=== PATIENT | female | born 1955 | race Caucasian/White ===

== ENCOUNTER → 2016-07-28 | Outpatient (CLI) | payer OTHER, SELFPAY ==
[~2016-07-28] MED LIST: *MAMMOGRAM; /THIA10TA; ALBUTEROL INHALATION; ALLEGRA180 PO; AMBIEN5 PO; ATARAX PO; ATIV0.5T; ATIV1TAB2; ATIVAN PO; BACT800T; CAHNTIXC PO; CAL/VITD PO; CHAN0.5P PO; CLON0.5T; CORGARD PO; DOXYCYC100 PO; FLOXINOTIC OTIC; FOLI1TAB; FOLIC1 PO; GASTROGRAFIN SOLUTION 30ML (Q9963) As Ordered ONE; ISOVUE-370 76% 100ML VIAL (Q9967) As Ordered ONE; KLON0.5T; KLONOPIN05 PO; LACT10SO PO; LEXAPRO20 PO; MOTRIN400 PO; MOTRIN600 PO; MULTIVIT PO; NEURONTIN6 PO; NICO14DI3; NICO21DI4; OXAZ15CA2; PAXIL10 PO; PAXIL20 PO; PEPCID20 PO; PRILOSECOT PO; RANI75TA2; SERT100T; SPIRIVA; SPIRONO PO; SYMBI INHALATION; THERGRAN; TRAZ0DON5 PO; TRAZ50TA; TRAZODON10 PO; ZANTAC150 PO; ZEBE5TAB; ZEBETA5 PO; ZOLO100T; ZOLOFT100 PO; ZOLOFT25 PO; ZOLOFT50 PO; [UNRECOGNIZED DRUG - CODE] PO; [UNRECOGNIZED DRUG - OTHER]; [UNRECOGNIZED DRUG - OTHER]
--- NOTE | 2016-07-28 13:17 | REP ---
CT of the abdomen and pelvis without and with IV contrast: With oral contrast. History: Weight loss and diarrhea. Comparison study April 10, 2014. CT contrast dose: 100 ml of Isovue [address] findings: Preliminary digital cytotechnologist/histotechnologist radiograph shows an unremarkable bowel gas pattern. The lung bases are clear. The liver and the spleen are normal in size and homogeneous in texture on pre- and postcontrast imaging. There is a small sliding-type hiatal hernia noted. No adrenal lesion is seen on either side. The pancreas contains three or four calcifications in the head of the pancreas. These appear to be anterior to the distal common bile duct and may reflect changes from previous pancreatitis. The CBD measures 6 mm in greatest diameter which is in the normal range. No intrahepatic biliary ductal dilation is observed. No retroperitoneal mass or adenopathy is seen. The kidneys enhance symmetrically. They are morphologically intact. No intrarenal nephrolithiasis is seen. There is some vascular calcification. No retroperitoneal mass or adenopathy is seen. There is minimal ectasia of the infrarenal abdominal aorta, 2.3 cm in greatest diameter. 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 Flow is reconstituted in the external and internal iliac artery via collaterals on the left side. The right common and external iliac artery are patent. Enhancement and patency are observed in the celiac, SMA, and inferior mesenteric artery. A normal appendix is again observed. There is left colonic diverticulosis without CT evidence of diverticulitis. Urinary bladder is intact. No abdominal wall defect is seen. Impression: 1. There are several calcifications in the pancreatic head consistent with previous episodes of pancreatitis. These are more prominent than on the April 10, 2014 prior study. 2. Small sliding-type hiatal hernia unchanged. 3. 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 4. Mild left colonic diverticulosis without evidence of diverticulitis. Signed by Joseph Lowe MD 07/28/2016 02:35 P
== END ==
LOC: M RAD 09:09
PROVIDERS: ATTEND Nurse Practitioner Family
DX: R63.4 Abnormal weight loss (principal); R19.7 Diarrhea, unspecified

== ENCOUNTER → 2016-08-04 | Outpatient (REF) | payer OTHER ==
[~2016-08-04] MED LIST changes: -GASTROGRAFIN SOLUTION 30ML (Q9963) As Ordered ONE; -ISOVUE-370 76% 100ML VIAL (Q9967) As Ordered ONE
[2016-08-04 10:52] LABS: MEAN CORPUSCULAR HEMOGLOBIN 32.1 pg (27.0-33.0); MEAN CORPUSCULAR HGB CONC 31.9 g/dl (32.0-36.5); MEAN CORPUSCULAR VOLUME 100.8 fl (80.0-96.0); RED CELL DISTRIBUTION WIDTH 12.5 % (11.5-14.5); WHITE BLOOD COUNT 6.8 K/mm3 (4.0-10.0)
[2016-08-04 11:42] LABS: ALBUMIN 3.8 GM/DL (3.2-5.2); ALBUMIN/GLOBULIN RATIO 1.12 (1.00-1.93); ALKALINE PHOSPHATASE 62 U/L (45-117); ALT/SGPT 19 U/L (12-78); AMYLASE 73 U/L (25-115); ANION GAP 6 MEQ/L (8-16); AST/SGOT 15 U/L (15-37); BILIRUBIN,TOTAL 0.6 MG/DL (0.2-1.0); BLOOD UREA NITROGEN 7 MG/DL (7-18); CALCIUM LEVEL 9.1 MG/DL (8.8-10.2); CARBON DIOXIDE LEVEL 33 MEQ/L (21-32); CHLORIDE LEVEL 103 MEQ/L (98-107); CREATININE FOR GFR 0.89 MG/DL (0.55-1.02); GLOMERULAR FILTRATION RATE > 60.0 (>45); GLUCOSE, FASTING 74 MG/DL (80-110); POTASSIUM SERUM 4.5 MEQ/L (3.5-5.1); SODIUM LEVEL 142 MEQ/L (136-145); TOTAL PROTEIN 7.2 GM/DL (6.4-8.2)
== END ==
PROVIDERS: ATTEND Nurse Practitioner Family
DX: R63.4 Abnormal weight loss (principal); R19.7 Diarrhea, unspecified

== ENCOUNTER → 2016-08-21 | Outpatient (CLI) | payer OTHER ==
[~2016-08-21] MED LIST changes: +ISOVUE-370 76% 100ML VIAL (Q9967) As Ordered ONE
--- NOTE | 2016-08-21 16:23 | REP ---
CT CHEST WITH IV CONTRAST: CT chest is performed with the intravenous administration of 100 mL of Isovue-370. Sagittal and coronal reconstructions images are performed. Scattered interstitial fibrotic changes are seen in the lungs bilaterally with mild central bronchiectasis. No suspicious nodular opacities are seen. There is no evidence of mediastinal, hilar, or chest wall lymphadenopathy. There is no pleural or pericardial effusion. The heart is not enlarged. Scattered atherosclerotic calcifications are seen of the thoracic aorta without aneurysm. There is a small hiatal hernia. There are degenerative changes of the spine. IMPRESSION: Mild chronic findings in the lungs. No suspicious nodule or adenopathy. Small hiatal hernia. Signed by Marcial Cabrera MD 08/21/2016 08:36 P
== END ==
LOC: M RAD 13:35
PROVIDERS: ATTEND Nurse Practitioner Family
DX: R63.4 Abnormal weight loss (principal); Z87.891 Personal history of nicotine dependence
CPT/HCPCS: 71260; Q9967

== ENCOUNTER → 2016-09-18 | Outpatient (CLI) | payer OTHER ==
[~2016-09-18] VITALS: Ht 160 cm; Wt 76.2 kg
[~2016-09-18] MED LIST changes: +ACET500T37 PO; +BISO5TAB5 PO; +BUPR150T3 PO; +BUPR1TAB17 PO; +CELE10TA PO; +CLIN1GEL3 TOP; +DOXY-278 PO; +DOXY100T16 PO; +FOLI1TAB2 PO; +GUAI1SYP8 PO; +IMOD2TAB16 PO; -ISOVUE-370 76% 100ML VIAL (Q9967) As Ordered ONE; +KLON0.5T PO; +LOPE2TAB3 PO; +MAALSUS20 PO; +MILKSUS5 PO; +MULT1CHW39 PO; +NAME5TAB13 PO; +NEUR300C PO; +NYST100024 TOP; +PATIENT COMMENT; +PRED10TA PO; +RANI1TAB38 PO; +THIA100TA PO; +TRAZ100T4 PO; +TYLE500T78 PO; +VITA100072 PO; +VITAMIN B COMPLEX PO; +VITATAB73 PO; +VITMTA PO; +ZOCO20TA PO
== END | disposition home or self-care (01) ==
LOC: M OPP 10:56
PROVIDERS: ATTEND Internal Medicine Gastroenterology
DX: R19.4 Change in bowel habit (principal); Z53.8 Procedure and treatment not carried out for other reasons

== ENCOUNTER 2016-09-24 12:27 | Observation (INO) | payer OTHER ==
[~2016-09-24] VITALS: Ht 167.6 cm; Wt 77.1 kg
[~2016-09-24 12:27] MED LIST changes: -BUPR150T3 PO; -DOXY-278 PO; -DOXY100T16 PO; -NYST100024 TOP; -PATIENT COMMENT; -PRED10TA PO; -THIA100TA PO; -VITATAB73 PO; -VITMTA PO
[2016-09-24] MEDS ORDERED: NS 500 ML IV ONE ×4 (13:15→20:00)
[2016-09-24] MEDS ORDERED: methylPREDNISolone INJ 125 MG/2 ML VIAL (J2930) IV ONE (13:15)
[2016-09-24] MEDS: IPRATROPIUM 0.5MG/ALBUTEROL 2.5MG INH SOL UD 3ML (DUONEB)(J7620) NEB PRN ×2 (13:25→18:37)
--- NOTE | 2016-09-24 14:07 | REP ---
PORTABLE CHEST: AP portable view of the chest is performed and compared to a prior study of 04/10/2014. There is no acute infiltrate or pulmonary edema. The heart is normal in size and the mediastinal silhouette is unchanged. IMPRESSION: No acute infiltrate. Signed by Marcial Cabrera MD 09/24/2016 04:53 P
[2016-09-24] MEDS ORDERED: POTASSIUM CHLORIDE 10 MEQ SR TABLET PO ONE (15:45)
[2016-09-24] MEDS ORDERED: LevoFLOXacin IV 750 MG in APPROPRIATE DILUENT 1 EA IV ONE (18:15)
--- NOTE | 2016-09-24 19:11 | ECGEPIP ---
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
--- NOTE | 2016-09-24 19:13 | ECGEPIP ---
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
[2016-09-24] MEDS ORDERED: ONDANSETRON 4MG/2ML VIAL (J2405) IV ONE (20:00)
[2016-09-24] MEDS ORDERED: NYST100024 TOP (20:13)
[2016-09-24] MEDS ORDERED: VITMTA PO (20:23)
[2016-09-24] MEDS ORDERED: VITATAB73 PO (20:23)
[2016-09-24] MEDS ORDERED: BUPR150T3 PO (20:23)
[2016-09-24] MEDS ORDERED: THIA100TA PO (20:26)
[2016-09-24] MEDS ORDERED: PATIENT COMMENT (20:27)
[2016-09-24] MEDS ORDERED: NS 1,000 ML IV SCH (21:26)
[2016-09-24] MEDS ORDERED: OXAZEPAM 10 MG CAP PO PRN (21:30)
[2016-09-24] MEDS ORDERED: ONDANSETRON 4MG/2ML VIAL (J2405) IV PRN (21:30)
[2016-09-24] MEDS ORDERED: ALBUTEROL SULFATE 2.5 MG/0.5 ML INH NEB SOLN NEB PRN (21:45)
[2016-09-24] MEDS: BISOPROLOL FUMARATE 5 MG TAB PO SCH (22:15)
[2016-09-24 22:55] VITALS: BP 173/81
--- NOTE | 2016-09-24 22:59 | HPE ---
DATE OF ADMISSION: 09/24/2016 PRIMARY CARE PROVIDER: Dr. Cabrera CHIEF COMPLAINT: Chest tightness and breathing difficulty. PAST MEDICAL HISTORY: Alcoholic cirrhosis of liver. Hypertension. Chronic obstructive pulmonary disease (COPD). Anxiety disorder. History of major depression. Hyperlipidemia. Vitamin B12 deficiency. Chronic anemia. Gastroesophageal reflux disease (GERD). Chronic hepatitis C. Low back pain with radiculopathy. History of alcoholism. History of nicotine abuse in the past. HISTORY OF THE PRESENT ILLNESS: This is a 61-year-old female who is a resident of the [facility]. She had gone for visitation with a friend in [place] on 09/20/2016. The patient did not return to the [facility], so the staff went to look for her at a friend's house and found her to be intoxicated and smoking. The patient has not taken any medication since Wednesday and has been drinking and smoking since Wednesday. She was brought back by the staff to [facility]; however, there, she complained of chest pain, breathing difficulty, so ambulance was called, and the patient was sent into the emergency room. In the emergency department (ED), the patient, on presentation, was found to be tachycardic with a rate of 133, hypertensive, blood pressure 173/95 and temperature of 99. The patient had a respiratory rate of 20 and oxygen saturation was 96%. The patient was noted to have wheezes and extremely tight chest with decreased breath sounds. The patient was given several nebulizer treatments and levofloxacin and intravenous methylprednisone with improvement in her symptoms. Laboratory work was performed, which was significant for elevated lactic acid level of 4, which further increased to 6.3, so the hospitalist service was consulted for admission for possible chronic obstructive pulmonary disease (COPD ) exacerbation and lactic acidosis. Initially, on presentation, the patient was mildly confused; however, was cooperative and did know where she was. The patient was given multiple boluses of fluids in the emergency room. The patient continued to remain tachycardic in the range of 110-130. Several EKGs were performed in the emergency room, which showed sinus tachycardia with occasional supraventricular complexes and minimal ST-T changes. Cardiac enzymes were negative. On my interview, the patient continued to complain of some shortness of breath; however, she said she was feeling a little better. She denied any nausea, vomiting or diarrhea. Denied any chest pain. Denied any cough. She knew that she was in the emergency room at [facility], and she told me she was with a friend in [place]; however, did not know when she had gone there. Her friend is an alcoholic and a smoker, and she said that since going there, she has been drinking and smoking continuously, though she has not smoked or drank for several years since being in assisted living. PAST SURGICAL HISTORY: Two sections. ALLERGIES: To ASPIRIN, ERYTHROMYCIN, PENICILLINS. HOME MEDICATIONS: - Tylenol 1000 mg by mouth every 6 hours as needed for pain - Maalox 30 mL by mouth every 6 hours as needed indigestion - bisoprolol 5 mg by mouth daily - bupropion XL 150 mg by mouth daily - Celexa 10 mg by mouth daily - clindamycin gel 1% topically as needed acne - clonazepam 0.5 mg by mouth twice a day - vitamin B12 1000 mcg by mouth daily - folic acid 1 mg by mouth daily - gabapentin 300 mg by mouth four times a day - guaifenesin/dextromethorphan 10 mL by mouth every 4 hours as needed cough - loperamide 2 mg by mouth as needed for diarrhea - milk of magnesia 30 mL by mouth daily as needed constipation - Namenda 5 mg by mouth twice a day - multivitamin one tablet by mouth daily - Nystatin powder one dose topically twice a day as needed for rash - ranitidine one tablet by mouth daily - simvastatin 20 mg at bedtime - thiamine 100 mg by mouth daily - trazodone 100 mg by mouth at bedtime - vitamin B complex one tablet by mouth twice a day FAMILY HISTORY: Nothing significant. REVIEW OF SYSTEMS: All 10-point review of systems are negative except as mentioned in the history of the present illness (HPI). PHYSICAL EXAMINATION: VITAL SIGNS: Blood pressure 195/95, pulse 126, respiratory rate 20, pulse oximetry 91% with two liters nasal cannula, temperature 97.8. GENERAL: Patient awake, alert, oriented times three, sitting up in bed in no acute distress. HEENT: Normocephalic, atraumatic. Moist mucous membranes. Anicteric eyes. CHEST: Bilateral mild wheezing, otherwise clear to auscultation. CARDIOVASCULAR: S1, S2, regular, tachycardic. No rub, murmur or gallop. ABDOMEN: Soft, nontender. Bowel sounds present. EXTREMITIES: No edema. LABORATORY DATA: WBC is 17.7, hemoglobin 15.6, platelets 196. Sodium 130, potassium 3.1, chloride 87, bicarbonate 31, BUN 13, creatinine 0.5, glucose 129, calcium 9.1. Cardiac enzymes are negative. Lactate is 6.3. Liver function tests are normal. BNP 10.1. TSH 0.3. Free T4 1.62. Chest x-ray shows no acute infiltrate or pulmonary edema. ASSESSMENT: This is a 61-year-old female admitted for possible chronic obstructive pulmonary disease (COPD) exacerbation, alcohol intoxication, dehydration, lactic acidosis. PLAN: For COPD exacerbation, will continue with nebulizers, prednisone and levofloxacin. Lactic acidosis most probably related to excessive work of breathing and COPD exacerbation. Will continue with hydration. Will recheck lactate. Patient is on levofloxacin to cover for any infection. Cultures have been sent. Alcohol intoxication and dehydration. The patient will continue with hydration. Will continue with Serax as needed to cover for any withdrawal symptoms. Will continue with folic acid and thiamine. History of major depression and anxiety. Will continue with home medications. The patient has not taken any medications for the past 4 days. Hypertension. Will continue with bisoprolol. Tachycardia. Could be related to dehydration, albuterol, alcohol withdrawal, or could be from beta jaime withdrawal. Will continue to monitor. EKG shows sinus tachycardia. Alcoholic cirrhosis. Stable at this point. Chronic hepatitis C. No issues at this point. Hyperlipidemia. Will continue simvastatin. Chronic back pain and neuropathy. Will continue with gabapentin. Gastrointestinal (GI) prophylaxis has been ordered. Deep vein thrombosis (DVT) prophylaxis has been ordered. Possible dementia due to history of alcohol abuse and psychiatric disorder. Will continue with memantine. MTDD
[2016-09-24] MEDS: KCL 40MEQ in NS 1000ML 1,000 ML IV SCH (23:22)
[2016-09-24 23:59] VITALS: BP 153/73
[2016-09-25] MEDS: IPRATROPIUM 0.5MG/ALBUTEROL 2.5MG INH SOL UD 3ML (DUONEB)(J7620) NEB SCH ×4 (00:25→23:17)
[2016-09-25] MEDS: UNRESOLVED CLARIFICATION ENTRY XX SCH ×2 (03:04→03:17)
[2016-09-25 04:45] VITALS: BP 138/66
[2016-09-25] MEDS: GABAPENTIN 300 MG CAP PO SCH ×4 (05:13→20:39)
[2016-09-25] MEDS: LevoFLOXacin 500 MG TABLET PO SCH (05:13)
[2016-09-25] MEDS ORDERED: guaiFENesin SYRUP 200 MG/10 ML UDC PO PRN (06:45)
[2016-09-25 07:15] VITALS: BP 160/76
--- NOTE | 2016-09-25 08:27 | IPNPDOC ---
Subjective Date Seen The patient was seen on 09/25/16. Subjective Chief Complaint/HPI The patient is a 61-year-old female admitted with a reason for visit of Alcohol Intoxication Delirium,Lactic Acidosis. General: Denies: Chills, Fatigue, Malaise, Night Sweats, Normal Appetite, Other Symptoms, ROS Unobtainable Constitutional: Denies: Chills, Fatigue, Fever, Lethargy, Malaise, Night Sweats , Other, Weakness, Weight Loss Eyes: Denies: Conjunctivae inflammation, Eyelid inflammation, Other, Pain, Redness, Vision change ENT: Denies: Dysphagia, Ear Pain, Epistaxis, Head Aches, Other Symptoms, Post Nasal Drip, Sinus Congestion, Sore Throat Skin: Denies: Breakdown, Bruising, Dry, Itching, Jaundice, Lesions, Nail Changes, Other, Rash Pulmonary: Denies: Cough, Dyspnea, Other Symptoms, Pleuritic Chest Pain Cardiovascular: Denies: Chest Pain, Edema, Lt Headedness, Orthopnea, Other Symptoms, Palpitations, Paroxysmal Noc. Dyspnea Gastrointestinal: Denies: Abdominal Pain, Constipation, Diarrhea, Hematochezia , Melena, Nausea, Other Symptoms, Vomiting Genitourinary: Denies: Dysuria, Frequency, Hematuria, Incontinence, Other Symptoms, Retention Objective Physical Examination General Exam: Positive: Alert, Cooperative, No Acute Distress Eye Exam: Positive: Conjunctiva & lids normal, EOMI, PERRLA, Negative: Sclera icteric ENT Exam: Positive: Atraumatic, Mucous membr. moist/pink Neck Exam: Positive: Supple Chest Exam: Positive: Normal air movement, Wheezing Heart Exam: Positive: Rate Normal, Regular Rhythm Telemetry: Positive: No significant arrhythmia, Sinus Abdomen Exam: Positive: Normal bowel sounds, Soft, Negative: Tenderness Psych Exam: Positive: Oriented x 3 Assessment /Plan Problems (1) Alcohol intoxication delirium Status: Acute Response to Treatment: Improving Discussed With: Patient Problem Specific Plan: Monitor Clinically, Repeat Labs Problem Text: Continue with serax as needed for withdrawal symptoms. MVI, folic acid, thiamine. (2) Tachycardia Status: Acute Discussed With: Patient Problem Specific Plan: Monitor Clinically, Repeat Labs Problem Text: Sinus tach. Likely secondary to EtOH withdrawal, complicated with BB withdrawal. Continue telemetry monitoring. (3) Lactic acidosis Status: Acute Response to Treatment: Improving Discussed With: Patient Problem Specific Plan: Repeat Labs Problem Text: Likely secondary to excessive work of breathing. Continue to trend. Treat as per COPD. (4) COPD (chronic obstructive pulmonary disease) Status: Acute Response to Treatment: Improving Discussed With: Patient Problem Specific Plan: Monitor Clinically, Repeat Labs Problem Text: Respiratory regimen, levaquin, steroids. IS and mucolytics. Supplemental O2. (5) Acute respiratory failure with hypoxia Status: Acute Response to Treatment: Improving Discussed With: Patient Problem Specific Plan: Monitor Clinically Problem Text: States does not use supplemental oxygen at baseline. Wean O2 maintain sats 88-92% (6) Anxiety and depression Status: Chronic Discussed With: Patient Problem Specific Plan: Monitor Clinically Problem Text: Continue home regimen. Patient has not been taking her meds for last several days as per documentation. (7) HTN (hypertension) Status: Chronic Discussed With: Patient Problem Specific Plan: Monitor Clinically Problem Text: Continue bisoprolol. (8) Alcoholic cirrhosis Status: Chronic (9) Hepatitis C Status: Chronic (10) Hyperlipidemia Status: Chronic Problem Text: Simvastatin. (11) Neuropathy Status: Chronic Problem Text: Gabapentin. (12) Dementia Status: Chronic Problem Text: Memantine Plan/VTE VTE Prophylaxis Ordered?: Yes Plan Diet: Continue Current Activity: Continue Current Therapy: PT, OT Diagnostics: Repeat Labs in AM, Obtain Cultures VS, I&O, 24H, [facility] Vital Signs/I&O Vital Signs Date Time Temp Pulse Resp B/P Pulse Ox O2 Delivery O2 Flow Rate FiO2 09/25/16 00:22 Nasal Cannula 2.0 09/24/16 23:59 99.7 90 20 153/73 91 I&O- Last 24 Hours up to 6 AM 09/25/16 06:00 Intake Total 1340 ml Output Total 600 ml Balance 740 ml Laboratory Data 24H LABS Laboratory Tests 2 09/24/16 13:53: Aspartate Amino Transf (AST/SGOT) 15, Alanine Aminotransferase (ALT/SGPT) 14, Alkaline Phosphatase 73, Total Bilirubin 0.5, Direct Bilirubin 0.2, Albumin 3.5 , Albumin/Globulin Ratio 0.97L, Anion Gap 12, White Blood Count 17.7H, Red Blood Count 4.71, Hemoglobin 15.6, Hematocrit 45.6, Mean Corpuscular Volume 96.9H, Mean Corpuscular Hemoglobin 33.1H, Mean Corpuscular Hemoglobin Concent 34.1, Red Cell Distribution Width 12.0, Platelet Count 196, Neutrophils (%) ( Auto) 84.7H, Lymphocytes (%) (Auto) 6.8L, Monocytes (%) (Auto) 5.6H, Eosinophils (%) (Auto) 0.2, Basophils (%) (Auto) 0.1, Neutrophils # (Auto) 15.0H , Lymphocytes # (Auto) 1.2L, Monocytes # (Auto) 1.0H, Eosinophils # (Auto) 0.0, Basophils # (Auto) 0.0, Blood Gas Bicarbonate Standard 31.7, Blood Urea Nitrogen 13, Creatinine 0.56, Sodium Level 130L, Potassium Level 3.1L, Chloride Level 87L, Carbon Dioxide Level 31, Calcium Level 9.1, Total Creatine Kinase 61 , Creatine Kinase MB 3.3, Creatine Kinase MB Relative Index 5.40H, Free Thyroxine 1.62H, Glomerular Filtration Rate > 60.0, Lactic Acid Level 4.0*H, Large Unclassified Cells # 0.5H, Large Unclassified Cells % 2.6, Magnesium Level 2.4, Thyroid Stimulating Hormone (TSH) 0.303L, Total Protein 7.1, Troponin I < 0.02, Venous Blood Base Excess 8.0H, Venous Blood pH 7.429, Venous Blood Partial Pressure CO2 52.9H, Venous Blood Partial Pressure O2 63.6H, Venous Blood Total Carbon Dioxide 35.9H, Venous Blood HCO3 34.2H, Venous Blood Oxygen Saturation 92.1H 09/24/16 13:54: B-Type Natriuretic Peptide 10.1 09/24/16 18:38: Total Creatine Kinase 62, Creatine Kinase MB 3.2, Creatine Kinase MB Relative Index 5.16H, Troponin I < 0.02, Lactic Acid Followup at 4 Hours 6.3*H 09/25/16 02:40: Lactic Acid Level 4.9*H 09/25/16 06:28: CBC/BMP Laboratory Tests 09/24/16 13:53 Calcium Level 9.1, Total Creatine Kinase 61, Red Blood Count 4.71, Mean Corpuscular Volume 96.9 H, Mean Corpuscular Hemoglobin 33.1 H, Mean Corpuscular Hemoglobin Concent 34.1, Red Cell Distribution Width 12.0, Neutrophils (%) (Auto ) 84.7 H, Lymphocytes (%) (Auto) 6.8 L, Monocytes (%) (Auto) 5.6 H, Eosinophils (%) (Auto) 0.2, Basophils (%) (Auto) 0.1, Neutrophils # (Auto) 15.0 H, Lymphocytes # (Auto) 1.2 L, Monocytes # (Auto) 1.0 H, Eosinophils # (Auto) 0.0, Basophils # (Auto) 0.0 Microbiology Microbiology 09/24/16 Blood Culture, Received Pending 09/24/16 Blood Culture, Received Pending 09/24/16 Influenza Virus Type A Antigen - Final, Complete 09/24/16 Influenza Virus Type B Antigen - Final, Complete BRIE HINKLE MD Sep 25, 2016 06:48
[2016-09-25] MEDS ORDERED: PANTOPRAZOLE 40MG INJ (PROTONIX) (C9113) IV SCH (09:00)
[2016-09-25] MEDS ORDERED: BISOPROLOL FUMARATE 5 MG TAB PO SCH (09:00)
[2016-09-25] MEDS: KCL 40MEQ in NS 1000ML 1,000 ML IV SCH ×2 (09:43→20:40)
[2016-09-25] MEDS: FOLIC ACID 1 MG TAB PO SCH (09:45)
[2016-09-25] MEDS: clonazePAM 0.5 MG TAB PO SCH ×2 (09:45→20:39)
[2016-09-25] MEDS: ENOXAPARIN 40 MG/0.4 ML SYRINGE (J1650) SC SCH (09:45)
[2016-09-25] MEDS: THIAMINE 100 MG TAB PO SCH (09:45)
[2016-09-25] MEDS: predniSONE 20 MG TAB PO SCH (09:45)
[2016-09-25] MEDS: MEMANTINE 5MG TABLET (NAMENDA) PO SCH ×2 (09:46→20:39)
[2016-09-25] MEDS: CYANOCOBALAMIN 500 MCG TAB PO SCH (09:46)
[2016-09-25] MEDS: CitaloPRAM (CeleXA) 10 MG TABLET PO SCH (09:47)
[2016-09-25] MEDS: buPROPion **XL** TABLET 150MG (WELLBUTRIN XL) PO SCH (09:49)
[2016-09-25] MEDS: BISOPROLOL FUMARATE 5 MG TAB PO SCH (09:49)
[2016-09-25 12:00] VITALS: BP 164/72
[2016-09-25 16:00] VITALS: BP 122/69
[2016-09-25 20:00] VITALS: BP 147/69
--- NOTE | 2016-09-25 20:31 | ECGEPIP ---
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
[2016-09-25] MEDS: traZODone 100 MG TAB PO SCH (20:39)
[2016-09-25] MEDS: SIMVASTATIN 20 MG TAB PO SCH (20:39)
[2016-09-25 23:19] VITALS: O2SAT 95
[2016-09-26] VITALS: BP 147/64
[2016-09-26] MEDS: UNRESOLVED CLARIFICATION ENTRY XX SCH (00:01)
[2016-09-26 04:00] VITALS: BP 145/65
[2016-09-26] MEDS: GABAPENTIN 300 MG CAP PO SCH ×4 (06:17→20:10)
[2016-09-26] MEDS: KCL 40MEQ in NS 1000ML 1,000 ML IV SCH (06:17)
[2016-09-26] MEDS: LevoFLOXacin 500 MG TABLET PO SCH (06:17)
[2016-09-26] MEDS: IPRATROPIUM 0.5MG/ALBUTEROL 2.5MG INH SOL UD 3ML (DUONEB)(J7620) NEB SCH ×3 (07:15→22:53)
[2016-09-26 07:20] VITALS: BP 144/76
--- NOTE | 2016-09-26 07:42 | IPNPDOC ---
Subjective Date Seen The patient was seen on 09/26/16. Subjective Chief Complaint/HPI The patient is a 61-year-old female admitted with a reason for visit of Alcohol Intoxication Delirium,Lactic Acidosis. General: Denies: Chills, Fatigue, Malaise, Night Sweats, Normal Appetite, Other Symptoms, ROS Unobtainable Constitutional: Denies: Chills, Fatigue, Fever, Lethargy, Malaise, Night Sweats , Other, Weakness, Weight Loss Eyes: Denies: Conjunctivae inflammation, Eyelid inflammation, Other, Pain, Redness, Vision change ENT: Denies: Dysphagia, Ear Pain, Epistaxis, Head Aches, Other Symptoms, Post Nasal Drip, Sinus Congestion, Sore Throat Skin: Denies: Breakdown, Bruising, Dry, Itching, Jaundice, Lesions, Nail Changes, Other, Rash Pulmonary: Denies: Cough, Dyspnea, Other Symptoms, Pleuritic Chest Pain Cardiovascular: Denies: Chest Pain, Edema, Lt Headedness, Orthopnea, Other Symptoms, Palpitations, Paroxysmal Noc. Dyspnea Gastrointestinal: Denies: Abdominal Pain, Constipation, Diarrhea, Hematochezia , Melena, Nausea, Other Symptoms, Vomiting Genitourinary: Denies: Dysuria, Frequency, Hematuria, Incontinence, Other Symptoms, Retention Objective Physical Examination General Exam: Positive: Alert, Cooperative, No Acute Distress Eye Exam: Positive: Conjunctiva & lids normal, EOMI, PERRLA, Negative: Sclera icteric ENT Exam: Positive: Atraumatic, Mucous membr. moist/pink Neck Exam: Positive: Supple Chest Exam: Positive: Normal air movement, Wheezing Heart Exam: Positive: Rate Normal, Regular Rhythm Telemetry: Positive: No significant arrhythmia, Sinus Abdomen Exam: Positive: Normal bowel sounds, Soft, Negative: Tenderness Psych Exam: Positive: Oriented x 3 Assessment /Plan Problems (1) Alcohol intoxication delirium Status: Acute Response to Treatment: Improving Discussed With: Patient Problem Specific Plan: Monitor Clinically, Repeat Labs Problem Text: Continue with serax as needed for withdrawal symptoms. MVI, folic acid, thiamine. (2) Tachycardia Status: Resolved Discussed With: Patient Problem Specific Plan: Monitor Clinically, Repeat Labs Problem Text: Sinus tach. Likely secondary to EtOH withdrawal, complicated with BB withdrawal. (3) Lactic acidosis Status: Resolved Response to Treatment: Improving Discussed With: Patient Problem Specific Plan: Repeat Labs Problem Text: Likely secondary to excessive work of breathing. Treat as per COPD. (4) COPD (chronic obstructive pulmonary disease) Status: Acute Response to Treatment: Improving Discussed With: Patient Problem Specific Plan: Monitor Clinically, Repeat Labs Problem Text: Respiratory regimen, levaquin, steroids. IS and mucolytics. Supplemental O2. (5) Acute respiratory failure with hypoxia Status: Acute Response to Treatment: Improving Discussed With: Patient Problem Specific Plan: Monitor Clinically Problem Text: States does not use supplemental oxygen at baseline. Wean O2 maintain sats 88-92% (6) Anxiety and depression Status: Chronic Discussed With: Patient Problem Specific Plan: Monitor Clinically Problem Text: Continue home regimen. Patient has not been taking her meds for last several days as per documentation. (7) HTN (hypertension) Status: Chronic Discussed With: Patient Problem Specific Plan: Monitor Clinically Problem Text: Continue bisoprolol. (8) Alcoholic cirrhosis Status: Chronic (9) Hepatitis C Status: Chronic (10) Hyperlipidemia Status: Chronic Problem Text: Simvastatin. (11) Neuropathy Status: Chronic Problem Text: Gabapentin. (12) Dementia Status: Chronic Problem Text: Memantine Plan/VTE VTE Prophylaxis Ordered?: Yes Plan IVF: Discontinue Diet: Continue Current Activity: Continue Current Therapy: PT, OT Diagnostics: Repeat Labs in AM, Obtain Cultures Anticipated Discharge: Home Wean O2. PT/OT eval/treat. Pending discharge in 24 hours. VS, I&O, 24H, Fishbone Vital Signs/I&O Vital Signs Date Time Temp Pulse Resp B/P Pulse Ox O2 Delivery O2 Flow Rate FiO2 09/26/16 04:00 97.4 82 20 145/65 91 Room Air 09/26/16 00:00 2.0 I&O- Last 24 Hours up to 6 AM 09/26/16 06:00 Intake Total 3620 ml Output Total 2050 ml Balance 1570 ml Laboratory Data 24H LABS Laboratory Tests 2 09/25/16 10:44: Lactic Acid Followup at 4 Hours 2.8*H 09/26/16 04:57: Anion Gap 4L, White Blood Count 8.2, Red Blood Count 3.52L, Hemoglobin 11.7L, Hematocrit 35.2L, Mean Corpuscular Volume 99.9H, Mean Corpuscular Hemoglobin 33.3H, Mean Corpuscular Hemoglobin Concent 33.3, Red Cell Distribution Width 12.5, Platelet Count 128L, Neutrophils (%) (Auto) 78.2H, Lymphocytes (%) (Auto) 13.0L, Monocytes (%) (Auto) 5.7H, Eosinophils (%) (Auto) 0.3, Basophils (%) ( Auto) 0.1, Neutrophils # (Auto) 6.4, Lymphocytes # (Auto) 1.1L, Monocytes # ( Auto) 0.5, Eosinophils # (Auto) 0.0, Basophils # (Auto) 0.0, Blood Urea Nitrogen 12, Creatinine 0.66, Sodium Level 145#, Potassium Level 4.2, Chloride Level 108H, Carbon Dioxide Level 33H, Calcium Level 8.1L, Glomerular Filtration Rate > 60.0, Lactic Acid Level 0.7, Large Unclassified Cells # 0.2, Large Unclassified Cells % 2.9, Magnesium Level 2.1 CBC/BMP Laboratory Tests 09/26/16 04:57 Calcium Level 8.1 L, Red Blood Count 3.52 L, Mean Corpuscular Volume 99.9 H, Mean Corpuscular Hemoglobin 33.3 H, Mean Corpuscular Hemoglobin Concent 33.3, Red Cell Distribution Width 12.5, Neutrophils (%) (Auto) 78.2 H, Lymphocytes (% ) (Auto) 13.0 L, Monocytes (%) (Auto) 5.7 H, Eosinophils (%) (Auto) 0.3, Basophils (%) (Auto) 0.1, Neutrophils # (Auto) 6.4, Lymphocytes # (Auto) 1.1 L, Monocytes # (Auto) 0.5, Eosinophils # (Auto) 0.0, Basophils # (Auto) 0.0 Microbiology Microbiology 09/24/16 Blood Culture - Preliminary, Resulted No growth after 24 hours . All specim... 09/24/16 Blood Culture - Preliminary, Resulted No growth after 24 hours . All specim... 09/25/16 Gram Stain - Final, Resulted 09/25/16 Sputum Culture, Resulted Pending 09/24/16 Respiratory Virus Panel (PCR) ([facility]) - Final, Complete 09/24/16 Influenza Virus Type A Antigen - Final, Complete 09/24/16 Influenza Virus Type B Antigen - Final, Complete BRIE HINKLE MD Sep 26, 2016 07:42
[2016-09-26] MEDS: FOLIC ACID 1 MG TAB PO SCH (08:28)
[2016-09-26] MEDS: predniSONE 20 MG TAB PO SCH (08:28)
[2016-09-26] MEDS: clonazePAM 0.5 MG TAB PO SCH ×2 (08:28→21:13)
[2016-09-26] MEDS: BISOPROLOL FUMARATE 5 MG TAB PO SCH (08:29)
[2016-09-26] MEDS: buPROPion **XL** TABLET 150MG (WELLBUTRIN XL) PO SCH (08:29)
[2016-09-26] MEDS: THIAMINE 100 MG TAB PO SCH (08:29)
[2016-09-26] MEDS: CitaloPRAM (CeleXA) 10 MG TABLET PO SCH (08:29)
[2016-09-26] MEDS: CYANOCOBALAMIN 500 MCG TAB PO SCH (08:29)
[2016-09-26] MEDS: MEMANTINE 5MG TABLET (NAMENDA) PO SCH ×2 (08:29→21:13)
[2016-09-26] MEDS: ENOXAPARIN 40 MG/0.4 ML SYRINGE (J1650) SC SCH (08:30)
[2016-09-26 12:00] VITALS: BP 150/66
[2016-09-26 16:00] VITALS: BP 160/70
[2016-09-26 20:00] VITALS: BP 125/63
[2016-09-26] MEDS: SIMVASTATIN 20 MG TAB PO SCH (21:13)
[2016-09-26] MEDS: traZODone 100 MG TAB PO SCH (21:13)
[2016-09-27 04:00] VITALS: BP 125/66
[2016-09-27] MEDS: LevoFLOXacin 500 MG TABLET PO SCH (05:29)
[2016-09-27] MEDS: GABAPENTIN 300 MG CAP PO SCH ×4 (05:29→21:07)
[2016-09-27] MEDS: IPRATROPIUM 0.5MG/ALBUTEROL 2.5MG INH SOL UD 3ML (DUONEB)(J7620) NEB SCH ×3 (08:00→20:04)
[2016-09-27] MEDS: CYANOCOBALAMIN 500 MCG TAB PO SCH (09:59)
[2016-09-27] MEDS: predniSONE 20 MG TAB PO SCH (10:00)
[2016-09-27] MEDS: CitaloPRAM (CeleXA) 10 MG TABLET PO SCH (10:01)
[2016-09-27] MEDS: THIAMINE 100 MG TAB PO SCH (10:01)
[2016-09-27] MEDS: BISOPROLOL FUMARATE 5 MG TAB PO SCH (10:01)
[2016-09-27] MEDS: FOLIC ACID 1 MG TAB PO SCH (10:01)
[2016-09-27] MEDS: clonazePAM 0.5 MG TAB PO SCH ×2 (10:01→21:07)
[2016-09-27] MEDS: MEMANTINE 5MG TABLET (NAMENDA) PO SCH ×2 (10:01→21:07)
[2016-09-27] MEDS: ENOXAPARIN 40 MG/0.4 ML SYRINGE (J1650) SC SCH (10:02)
[2016-09-27] MEDS ORDERED: DOXY100T16 PO (10:21)
--- NOTE | 2016-09-27 10:31 | DS.PDOC ---
Discharge Summary General Date of Admission Sep 24, 2016 at 21:26 Date of Discharge Anticipating return to assisted living 09/28/16. Discharge Summary PROCEDURES PERFORMED DURING STAY: [None]. DISCHARGE DIAGNOSES: 1. Non-compliance. 2. EtOH abuse/withdrawl. 3. Lactic acidosis - secondary to work of breathing 4. COPD exacerbation - MRSA in sputum 5. Acute respiratory failure with hypoxia 6. Anxiety/depression 7. HTN 8. Alcoholic cirrhosis 9. Chronic Hep C 10. Hyperlipidemia 11. Neuropathy 12. Dementia COMPLICATIONS/CHIEF COMPLAINT: Alcohol Intoxication Delirium,Lactic Acidosis. HOSPITAL COURSE: 61 year old female admitted for alcohol intoxication and lactic acidosis. Patient states she went on a drinking binge, admitted intentionally not taking her medications. Admitted to telemetry treated with supplemental oxygen, steroids, antibiotics and respiratory regimen for hypoxic failure. Some signs/symptoms of withdrawal treated with serax. Spiked fever jury consultant 09/27/16, workup pending. If negative anticipating discharge Wednesday. Given non-compliance unsure if patient could return to assisted living. DISCHARGE MEDICATIONS: Please see below. ALLERGIES: Please see below. PHYSICAL EXAMINATION ON DISCHARGE: VITAL SIGNS: Please see below. GENERAL: NAD HEENT: NC/AT, EOMI, PERRL NECK: supple CARDIOVASCULAR EXAMINATION: +S1S2, RRR RESPIRATORY EXAMINATION: CTA B/L ABDOMINAL EXAMINATION: soft, NT, +BS EXTREMITIES: no edema SKIN: no rashes NEUROLOGICAL EXAMINATION: no gross focal deficits PSYCHIATRIC EXAMINATION: AAOx3 LABORATORY DATA: Please see below. ACTIVITY: [As tolerated]. DIET: 2 gram sodium DISPOSITION: To be determined DISCHARGE INSTRUCTIONS: 1. Follow up PCP in 3-5 days 2. Medications as directed DISCHARGE CONDITION: To be determined on day of discharge. TIME SPENT ON DISCHARGE: Greater than 30 minutes. Vital Signs/I&Os Vital Signs Date Time Temp Pulse Resp B/P Pulse Ox O2 Delivery O2 Flow Rate FiO2 09/27/16 10:01 78 125/66 09/27/16 04:00 100.7 20 93 Room Air 09/26/16 08:00 2.0 I&O- Last 24 Hours up to 6 AM 09/27/16 06:00 Intake Total 1080 ml Output Total 750 ml Balance 330 ml Laboratory Data Labs 24H Laboratory Tests 2 09/27/16 04:59: Anion Gap 5L, White Blood Count 9.6, Red Blood Count 3.63L, Hemoglobin 11.8L, Hematocrit 37.0, Mean Corpuscular Volume 101.8H, Mean Corpuscular Hemoglobin 32.5, Mean Corpuscular Hemoglobin Concent 31.9L, Red Cell Distribution Width 12.6, Platelet Count 150, Neutrophils (%) (Auto) 69.7H, Lymphocytes (%) (Auto) 21.4L, Monocytes (%) (Auto) 5.4H, Eosinophils (%) (Auto) 0.7, Basophils (%) ( Auto) 0.1, Neutrophils # (Auto) 6.7, Lymphocytes # (Auto) 2.3, Monocytes # (Auto ) 0.5, Eosinophils # (Auto) 0.1, Basophils # (Auto) 0.0, Blood Urea Nitrogen 16 , Creatinine 0.66, Sodium Level 144, Potassium Level 3.9, Chloride Level 103, Carbon Dioxide Level 36H, Calcium Level 8.6L, Glomerular Filtration Rate > 60.0 , Large Unclassified Cells # 0.3, Large Unclassified Cells % 2.7, Magnesium Level 2.2 CBC/BMP Laboratory Tests 09/27/16 04:59 Calcium Level 8.6 L, Red Blood Count 3.63 L, Mean Corpuscular Volume 101.8 H, Mean Corpuscular Hemoglobin 32.5, Mean Corpuscular Hemoglobin Concent 31.9 L, Red Cell Distribution Width 12.6, Neutrophils (%) (Auto) 69.7 H, Lymphocytes (% ) (Auto) 21.4 L, Monocytes (%) (Auto) 5.4 H, Eosinophils (%) (Auto) 0.7, Basophils (%) (Auto) 0.1, Neutrophils # (Auto) 6.7, Lymphocytes # (Auto) 2.3, Monocytes # (Auto) 0.5, Eosinophils # (Auto) 0.1, Basophils # (Auto) 0.0 Microbiology Microbiology 09/27/16 Blood Culture, Received Pending 09/27/16 Blood Culture, Received Pending 09/24/16 Blood Culture - Preliminary, Resulted No Growth after 48 hours. All Specime... 09/24/16 Blood Culture - Preliminary, Resulted No Growth after 48 hours. All Specime... 09/25/16 Gram Stain - Final, Complete 09/25/16 Sputum Culture - Final, Complete Staph.aureus Methicillin Resis 4/6/17 Respiratory Virus Panel (PCR) ([facility]) - Final, Complete 09/24/16 Influenza Virus Type A Antigen - Final, Complete 09/24/16 Influenza Virus Type B Antigen - Final, Complete Discharge Medications Scheduled (Vitamin B-Complex) 1 Tab Tab 1 TAB PO BID (Reported) Bisoprolol Fumarate (Bisoprolol Fumarate) 5 Mg Tab 5 MG PO DAILY (Reported) Bupropion Hcl (Bupropion HCl Xl) 150 Mg Tab 150 MG PO DAILY (Reported) Citalopram Hydrobromide (Celexa) 10 Mg Tab 10 MG PO DAILY (Reported) Clonazepam (Klonopin) 0.5 Mg Tab 0.5 MG PO BID (Reported) Cyanocobalamin (Vitamin B12) 1,000 Mcg Tab 1,000 MCG PO DAILY (Reported) Doxycycline Monohydrate (Doxycycline Monohydrate) 100 Mg Tab 100 MG PO BID Folic Acid (Folic Acid) 1 Mg Tab 1 MG PO DAILY (Reported) Gabapentin (Neurontin) 300 Mg Cap 300 MG PO QID (Reported) TAKES 0600,1100,1600,2000 Memantine (Namenda) 5 Mg Tab 5 MG PO BID (Reported) Multivitamins *[facility] STOCKED* (Thera M Plus *[facility] STOCKED*) 1 Tab Tab 1 TAB PO DAILY (Reported) Ranitidine Hcl (Ranitidine Maximum Streng) 150 Mg Tab 1 TAB PO DAILY (Reported ) Simvastatin (Zocor) 20 Mg Tab 20 MG PO QHS (Reported) Thiamine Hcl (Thiamine Hcl) 100 Mg Tab 100 MG PO DAILY (Reported) Trazodone HCl (Trazodone HCl) 100 Mg Tab 100 MG PO QHS (Reported) Scheduled PRN (Guaifenesin/Dextromethorp 10-100 mg/5Ml) 1 Syp Syp 10 ML PO Q4H PRN PRN COUGH ( Reported) Acetaminophen (Tylenol Extra Strength) 500 Mg Tab 1,000 MG PO Q6HP PRN PRN pain (Reported) Aluminum/Magnesium/Simeth (Maalox Advanced Maximum S 400-400-40 mg/5Ml) 1 Nelsy Nelsy 30 ML PO Q6HP PRN PRN INDIGESTION (Reported) Clindamycin Phosphate (Clindagel) 1 % Gel 1 % TOP DAILYPRN PRN PRN acne ( Reported) APPLIES TO FACE Loperamide HCl (Loperamide A-D) 2 Mg Tab 2 MG PO PRN DIARRHEA (Reported) Magnesium Hydroxide (Milk of Magnesia 400 mg/5Ml) 1 Nelsy Nelsy 30 ML PO DAILYPRN PRN PRN BOWEL CARE/CONSTIPATION (Reported) Nystatin (Nystatin Powder) 100,000 Unit/Gm Pow 1 DOSE TOP BID PRN PRN RASH ( Reported) APPLY UNDER BOTH BREASTS AFTER WASHING Miscellaneous Medications ([Patient Comment]) (Reported) SSV STATES PT HAS NOT TAKEN ANY MEDS SINCE WEDNESDAY 09/20 Allergies Coded Allergies: Penicillins (Verified Allergy, Intermediate, HIVES, 09/14/16) Penicillins Cross Reactors (Verified Allergy, Intermediate, HIVES, 09/14/16 ) Erythromycin (Verified Allergy, Unknown, 09/14/16) Aspirin (Verified Adverse Reaction, Mild, NAUSEA, 09/14/16) BRIE HINKLE MD Sep 27, 2016 10:30
[2016-09-27] MEDS ORDERED: PRED10TA PO (10:32)
[2016-09-27] MEDS: buPROPion **XL** TABLET 150MG (WELLBUTRIN XL) PO SCH (12:00)
[2016-09-27] MEDS: DOXYCYCLINE HYCLATE 100 MG TAB PO SCH ×2 (12:00→21:07)
[2016-09-27 14:00] VITALS: BP 143/64
[2016-09-27] MEDS: traZODone 100 MG TAB PO SCH (21:07)
[2016-09-27] MEDS: SIMVASTATIN 20 MG TAB PO SCH (21:07)
[2016-09-27 22:00] VITALS: BP 140/65
[2016-09-28 06:00] VITALS: BP 150/62
[2016-09-28] MEDS: GABAPENTIN 300 MG CAP PO SCH ×2 (06:08→11:46)
[2016-09-28] MEDS: IPRATROPIUM 0.5MG/ALBUTEROL 2.5MG INH SOL UD 3ML (DUONEB)(J7620) NEB SCH (08:34)
[2016-09-28] MEDS ORDERED: PRED10TA PO (09:29)
[2016-09-28] MEDS ORDERED: DOXY-278 PO (09:29)
[2016-09-28 09:42] VITALS: BP 150/62
[2016-09-28] MEDS: buPROPion **XL** TABLET 150MG (WELLBUTRIN XL) PO SCH (09:42)
[2016-09-28] MEDS: FOLIC ACID 1 MG TAB PO SCH (09:42)
[2016-09-28] MEDS: MEMANTINE 5MG TABLET (NAMENDA) PO SCH (09:42)
[2016-09-28] MEDS: ENOXAPARIN 40 MG/0.4 ML SYRINGE (J1650) SC SCH (09:42)
[2016-09-28] MEDS: clonazePAM 0.5 MG TAB PO SCH (09:42)
[2016-09-28] MEDS: BISOPROLOL FUMARATE 5 MG TAB PO SCH (09:42)
[2016-09-28] MEDS: DOXYCYCLINE HYCLATE 100 MG TAB PO SCH (09:42)
[2016-09-28] MEDS: predniSONE 20 MG TAB PO SCH (09:43)
[2016-09-28] MEDS: CYANOCOBALAMIN 500 MCG TAB PO SCH (09:43)
[2016-09-28] MEDS: CitaloPRAM (CeleXA) 10 MG TABLET PO SCH (09:43)
[2016-09-28] MEDS: THIAMINE 100 MG TAB PO SCH (09:43)
--- NOTE | 2016-09-28 10:34 | DSES ---
DATE OF ADMISSION: 09/24/2016 DATE OF DISCHARGE: 09/28/2016 This an addendum to a discharge dictated by Dr. Campbell on 09/27/2016. Please see report #[id number]. ADDENDUM: The reason the patient did not get discharged on 09/27/2016 was because it was Wednesday and the patient was unable to be accepted at the [place] facility. Please see full dictation summary and medication reconsolidation.
[2016-09-28] MEDS ORDERED: DOXY100T16 PO (11:25)
== END 2016-09-28 11:55 ==
LOC: M ED 13:16 → EEVIPCON 21:26 → M ED INP 21:26 → M PCU 22:45 → M MS5PR 09-27 07:30
PROVIDERS: ADMIT Internal Medicine Nephrology; ATTEND Internal Medicine
DX: Z91.19 Patient's noncompliance with other medical treatment and regimen (principal); F10.239 Alcohol dependence with withdrawal, unspecified; E87.2 Acidosis; R00.0 Tachycardia, unspecified; J44.1 Chronic obstructive pulmonary disease with (acute) exacerbation; J96.01 Acute respiratory failure with hypoxia; F41.9 Anxiety disorder, unspecified; F32.9 Major depressive disorder, single episode, unspecified; I10 Essential (primary) hypertension; K70.30 Alcoholic cirrhosis of liver without ascites; B18.2 Chronic viral hepatitis C; E78.5 Hyperlipidemia, unspecified; G60.9 Hereditary and idiopathic neuropathy, unspecified; F03.90 Unspecified dementia, unspecified severity, without behavioral disturbance, psychotic disturbance, mood disturbance, and anxiety; Z79.899 Other long term (current) drug therapy; Z88.0 Allergy status to penicillin; Z88.8 Allergy status to other drugs, medicaments and biological substances
CPT/HCPCS: 36415; 71010; 80048; 80076; 81001; 82550; 82553; 82803; 83605; 83735; 83880; 84439; 84443; 85025; 87040; 87070; 87077; 87186; 87205; 87486; 87581; 87633; 87798; 87804; 93005; 93041; 94640; 94760; 96372; 96375; 97161; 99285; C9113; J1650; J1956; J2405; J2930

== ENCOUNTER → 2018-08-02 | Outpatient (CLI) | payer MEDICAID, OTHER ==
[~2018-08-02] MED LIST changes: +ACET-683 PO; -ACET500T37 PO; +BUPR150T3 PO; -BUPR1TAB17 PO; +BUPR1TAB53 PO; +DOXY-350 PO; +DOXY100T16 PO; +FOLI1TAB11 PO; -FOLI1TAB2 PO; +NYST1POW9 TOP; +PATIENT COMMENT; +PRED10TA2 PO; +THIA100TA PO; +TRAZ-163 PO; -TRAZ100T4 PO; +VITATAB73 PO; +VITMTA PO
--- NOTE | 2018-08-02 10:47 | REPMRS ---
Patient History The patient states she has not had a clinical breast exam in over a year. Family history of colorectal cancer in sister. Took hormonal contraceptives for 1 month. 3D TOMOSYNTHESIS WAS PERFORMED. Digital Mammo Screening Bilat: August 02, 2018 - Exam #: [id number] Bilateral CC and MLO view(s) were taken. Technologist: Nahomy Beach, Technologist Prior study comparison: August 22, 2013, bilateral digital mammo screening bilat performed at [facility]. August 25, 2012, bilateral bilat screen digital mammo, performed at [facility] ([facility]). FINDINGS: There are scattered fibroglandular densities. There is a fairly symmetric fibroglandular pattern in both breasts. There has been no interval development of masses, areas of architectural distortion or clusters of microcalcifications typical of malignancy. Assessment: BI-RADS/ACR category 2 mammogram. Benign Findings. Recommendation Routine screening mammogram of both breasts in 1 year (for women over age 40). This mammogram was interpreted with the aid of an FDA-approved computer-aided dectection system. Electronically Signed By: Marcial Cabrera MD 08/02/18 [id number]
== END ==
LOC: M RAD 09:32
PROVIDERS: ATTEND Nurse Practitioner Family
DX: Z12.31 Encounter for screening mammogram for malignant neoplasm of breast (principal)

== ENCOUNTER 2018-11-11 10:31 | Day surgery (SDC) | payer MEDICAID ==
[~2018-11-11] VITALS: Ht 165.1 cm; Wt 85.0 kg
[~2018-11-11 10:31] MED LIST changes: +IPRA0.00 NEB; +LOPE2CA PO; +MAALSUS19 PO; -MULT1CHW39 PO; +MULT200T7 PO; +NS 1,000 ML IV ONE; +VITA100018 PO; -VITA100072 PO
--- NOTE | 2018-11-11 12:07 | ROOR ---
Patient Name: Bhavana Tate Procedure Date: 11/11/2018 11:29 AM Date of : 1955 Age: 63 Room: [facility] Gender: Female Note Status: Finalized Procedure: Colonoscopy Indications: Screening for colorectal malignant neoplasm Providers: Rodrick TUTTLE MD Referring MD: Hortencia EVANS NP Requesting Provider: Medicines: Monitored Anesthesia Care Complications: No immediate complications. Procedure: Pre-Anesthesia Assessment: - The heart rate, respiratory rate, oxygen saturations, blood pressure, adequacy of pulmonary ventilation, and response to care were monitored throughout the procedure. The Colonoscope was introduced through the anus and advanced to the cecum, identified by appendiceal orifice and ileocecal valve. The colonoscopy was performed without difficulty. The patient tolerated the procedure well. The quality of the bowel preparation was fair. Findings: The perianal and digital rectal examinations were normal. Three semi-pedunculated polyps were found in the sigmoid colon. The polyps were 4 to 8 mm in size. These polyps were removed with a cold snare. Resection and retrieval were complete. To close a defect after polypectomy, three hemostatic clips were successfully placed (MR conditional). There was no bleeding at the end of the procedure. Multiple medium-mouthed diverticula were found in the sigmoid colon. There was evidence of diverticular spasm. Impression: - Preparation of the colon was fair. - Three 4 to 8 mm polyps in the sigmoid colon, removed with a cold snare. Resected and retrieved. Clips (MR conditional) were placed. - Diverticulosis in the sigmoid colon. There was evidence of diverticular spasm. - The exam was otherwise normal to the cecum. Recommendation: - Telephone endoscopist for pathology results in 2 weeks. - Repeat the colonoscopy for surveillance in 2 years (suboptimal prep). Rodrick Tuttle MD Rodrick TUTTLE MD 11/11/2018 12:07:18 PM Electronically signed by Rodrick TUTTLE MD Number of Addenda: 0 Note Initiated On: 11/11/2018 11:29 AM Estimated Blood Loss: Estimated blood loss: none.
[2018-11-11] MEDS ORDERED: PROPOFOL 500 MG/50 ML VIAL As Ordered ONE (12:26)
[2018-11-11] MEDS ORDERED: LIDOCAINE 2% INJ 100 MG/5 ML SDV (FOR ANES.) As Ordered ONE (12:26)
[2018-11-11] MEDS ORDERED: ALBUTEROL SULFATE 2.5 MG/0.5 ML INH NEB SOLN As Ordered ONE (12:39)
[2018-11-11] MEDS ORDERED: ALBUTEROL SULFATE 2.5 MG/0.5 ML INH NEB SOLN INH ONE (12:45)
[2018-11-11 12:55] VITALS: BP 119/58
== END 2018-11-11 13:45 | disposition home or self-care (01) ==
LOC: M OPP 10:31
PROVIDERS: ATTEND Internal Medicine Gastroenterology
DX: D12.5 Benign neoplasm of sigmoid colon (principal); K57.30 Diverticulosis of large intestine without perforation or abscess without bleeding; Z12.11 Encounter for screening for malignant neoplasm of colon

== ENCOUNTER → 2019-08-07 | Outpatient (REF) | payer MEDICAID ==
[~2019-08-07] MED LIST changes: +BISO5TAB14 PO; -BISO5TAB5 PO; -DOXY100T16 PO; +DOXY100T27 PO; -NS 1,000 ML IV ONE; -TRAZ-163 PO; +TRAZ-257 PO
[2019-08-07 11:52] LABS: HEMATOCRIT 44.4 % (36.0-47.0); HEMOGLOBIN 13.6 g/dl (12.0-15.5); MEAN CORPUSCULAR HGB CONC 30.6 g/dl (32.0-36.5); PLATELET COUNT, AUTOMATED 177 10^3/uL (150-450); RED BLOOD COUNT 4.53 10^6/uL (4.00-5.40); WHITE BLOOD COUNT 7.4 10^3/uL (4.0-10.0)
[2019-08-07 12:24] LABS: ALBUMIN 3.8 GM/DL (3.2-5.2); ALT/SGPT 15 U/L (12-78); BILIRUBIN,TOTAL 0.6 MG/DL (0.2-1.0); BLOOD UREA NITROGEN 7 MG/DL (7-18); CALCIUM LEVEL 9.7 MG/DL (8.8-10.2); CARBON DIOXIDE LEVEL 35 MEQ/L (21-32); CHLORIDE LEVEL 101 MEQ/L (98-107); CHOLESTEROL LEVEL 162 MG/DL (<200); CHOLESTEROL RISK RATIO 2.842 (<5); CREATININE FOR GFR 0.95 MG/DL (0.55-1.30); GLOMERULAR FILTRATION RATE > 60.0 (>45); GLUCOSE, FASTING 75 MG/DL (70-100); HDL CHOLESTEROL 57 MG/DL (>40); LDL CHOLESTEROL 69 MG/DL (<100); NON-HDL-C 105 MG/DL; POTASSIUM SERUM 4.4 MEQ/L (3.5-5.1); SODIUM LEVEL 140 MEQ/L (136-145); TOTAL PROTEIN 7.4 GM/DL (6.4-8.2); TRIGLYCERIDES LEVEL 179 MG/DL (<150)
[2019-08-07 12:30] LABS: VITAMIN B12 LEVEL 1786 PG/ML (247-911)
== END ==
LOC: M SFHCPLAZ 10:27
PROVIDERS: ATTEND Nurse Practitioner Adult Health
DX: F10.21 Alcohol dependence, in remission (principal); E78.2 Mixed hyperlipidemia; E53.8 Deficiency of other specified B group vitamins

== ENCOUNTER → 2020-02-06 | Outpatient (REF) | payer MEDICAID ==
[~2020-02-06] MED LIST changes: +BENG1CRE3 TOP; +BUPR15TASR PO; +CITA20TA7 PO; +LOPE2CAP PO; +OMEP-221 PO; +PROAAER10 INH
[2020-03-25 21:57] LABS: HEMATOCRIT 41.9 % (36.0-47.0); MEAN CORPUSCULAR HEMOGLOBIN 29.5 pg (27.0-33.0); MEAN CORPUSCULAR VOLUME 95.2 fl (80.0-96.0); PLATELET COUNT, AUTOMATED 195 10^3/uL (150-450); WHITE BLOOD COUNT 7.9 10^3/uL (4.0-10.0)
[2020-04-01 03:47] LABS: ALBUMIN 3.8 GM/DL (3.2-5.2); BILIRUBIN,TOTAL 0.6 MG/DL (0.2-1.0); CALCIUM LEVEL 9.7 MG/DL (8.8-10.2); CREATININE FOR GFR 1.08 MG/DL (0.55-1.30); GLOMERULAR FILTRATION RATE 54.4 (>45); POTASSIUM SERUM 4.6 MEQ/L (3.5-5.1); TOTAL PROTEIN 7.7 GM/DL (6.4-8.2)
== END ==
LOC: M SFHCPLAZ 11:39
PROVIDERS: ATTEND Nurse Practitioner Adult Health
DX: E53.9 Vitamin B deficiency, unspecified (principal); J44.9 Chronic obstructive pulmonary disease, unspecified; E78.2 Mixed hyperlipidemia; I10 Essential (primary) hypertension

== ENCOUNTER → 2020-02-06 | Emergency (ER) | payer MEDICAID ==
[~2020-02-06] MED LIST changes: +ISOVUE-370 76% 100ML VIAL As Ordered ONE
[2020-02-10 18:49] LABS: BLOOD UREA NITROGEN 10 MG/DL (7-18); CALCIUM LEVEL 9.4 MG/DL (8.8-10.2); CARBON DIOXIDE LEVEL 29 MEQ/L (21-32); CHLORIDE LEVEL 103 MEQ/L (98-107); CREATININE FOR GFR 0.98 MG/DL (0.55-1.30); GLOMERULAR FILTRATION RATE > 60.0 (>45); GLUCOSE, FASTING 87 MG/DL (70-100); SODIUM LEVEL 139 MEQ/L (136-145)
--- NOTE | 2020-02-28 16:09 | ECGEPIP ---
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
[2020-03-18 08:34] LABS: BASO # 0.1 10^3/uL (0.0-0.2); BASO % 0.6 % (0.0-1.0); EOS # 0.2 10^3/uL (0.0-0.5); EOS % 2.2 % (0.0-3.0); HEMATOCRIT 39.3 % (36.0-47.0); HEMOGLOBIN 12.5 g/dl (12.0-15.5); LYMPH # 1.3 10^3/uL (1.5-5.0); LYMPH % 13.6 % (24.0-44.0); MEAN CORPUSCULAR HEMOGLOBIN 29.7 pg (27.0-33.0); MEAN CORPUSCULAR HGB CONC 31.8 g/dl (32.0-36.5); MEAN CORPUSCULAR VOLUME 93.3 fl (80.0-96.0); MONO # 0.8 10^3/uL (0.0-0.8); MONO % 8.7 % (0.0-5.0); NEUTROPHILS # 6.9 10^3/uL (1.5-8.5); NEUTROPHILS % 74.5 % (36.0-66.0); PLATELET COUNT, AUTOMATED 171 10^3/uL (150-450); RED BLOOD COUNT 4.21 10^6/uL (4.00-5.40); WHITE BLOOD COUNT 9.3 10^3/uL (4.0-10.0)
== END | disposition home or self-care (01) ==
LOC: M ED 16:11
DX: S22.068A Other fracture of T7-T8 thoracic vertebra, initial encounter for closed fracture (principal); X58.XXXA Exposure to other specified factors, initial encounter; Y92.9 Unspecified place or not applicable; Y93.9 Activity, unspecified; Y99.9 Unspecified external cause status; J44.9 Chronic obstructive pulmonary disease, unspecified; J43.9 Emphysema, unspecified; I10 Essential (primary) hypertension; K21.9 Gastro-esophageal reflux disease without esophagitis; E78.5 Hyperlipidemia, unspecified; F03.90 Unspecified dementia, unspecified severity, without behavioral disturbance, psychotic disturbance, mood disturbance, and anxiety; F10.20 Alcohol dependence, uncomplicated; K74.60 Unspecified cirrhosis of liver; B18.2 Chronic viral hepatitis C; Z87.891 Personal history of nicotine dependence; Z79.899 Other long term (current) drug therapy; Z88.8 Allergy status to other drugs, medicaments and biological substances; Z88.1 Allergy status to other antibiotic agents; Z88.0 Allergy status to penicillin; Z88.4 Allergy status to anesthetic agent

== ENCOUNTER → 2020-06-05 | Outpatient (REF) | payer MEDICAID ==
[~2020-06-05] MED LIST changes: -ISOVUE-370 76% 100ML VIAL As Ordered ONE
[2020-06-05 15:50] LABS: INFLUENZA A AMPLIFICATION NEGATIVE (NEGATIVE); INFLUENZA B AMPLIFICATION NEGATIVE (NEGATIVE)
== END ==
PROVIDERS: ATTEND Internal Medicine
DX: Z20.828 Contact with and (suspected) exposure to other viral communicable diseases (principal)
CPT/HCPCS: 87502; U0003

== ENCOUNTER → 2020-06-10 | Outpatient (REF) | payer MEDICAID | PROVIDERS: ATTEND Internal Medicine | DX: Z20.828 Contact with and (suspected) exposure to other viral communicable diseases (principal) ==

== ENCOUNTER → 2020-06-17 | Outpatient (REF) | payer MEDICAID | PROVIDERS: ATTEND Internal Medicine | DX: Z20.828 Contact with and (suspected) exposure to other viral communicable diseases (principal) ==

== ENCOUNTER → 2020-06-24 | Outpatient (REF) | payer MEDICARE, MEDICAID | PROVIDERS: ATTEND Nurse Practitioner Adult Health | DX: Z11.52 Encounter for screening for COVID-19 (principal) ==

== ENCOUNTER → 2020-07-01 | Outpatient (REF) | payer MEDICAID ==
[~2020-07-01] MED LIST changes: -BUPR150T3 PO; +BUPR150T4 PO
== END ==
PROVIDERS: ATTEND Internal Medicine
DX: Z20.822 Contact with and (suspected) exposure to COVID-19 (principal)

== ENCOUNTER → 2020-07-08 | Outpatient (REF) | payer MEDICAID | PROVIDERS: ATTEND Internal Medicine | DX: Z20.822 Contact with and (suspected) exposure to COVID-19 (principal) ==

== ENCOUNTER → 2020-07-15 | Outpatient (REF) | payer MEDICAID | PROVIDERS: ATTEND Internal Medicine | DX: Z20.822 Contact with and (suspected) exposure to COVID-19 (principal) ==

== ENCOUNTER → 2020-07-22 | Outpatient (REF) | payer MEDICAID | PROVIDERS: ATTEND Internal Medicine | DX: Z20.822 Contact with and (suspected) exposure to COVID-19 (principal) ==

== ENCOUNTER → 2020-07-29 | Outpatient (REF) | payer MEDICAID | PROVIDERS: ATTEND Internal Medicine | DX: Z20.822 Contact with and (suspected) exposure to COVID-19 (principal) ==

== ENCOUNTER → 2020-08-05 | Outpatient (REF) | payer MEDICAID | PROVIDERS: ATTEND Internal Medicine | DX: Z20.822 Contact with and (suspected) exposure to COVID-19 (principal) ==

== ENCOUNTER → 2020-08-06 | Outpatient (REF) | payer MEDICARE, MEDICAID ==
[2020-08-06 12:02] LABS: ALBUMIN 3.6 GM/DL (3.2-5.2); ALT/SGPT 12 U/L (12-78); BILIRUBIN,TOTAL 0.7 MG/DL (0.2-1.0); BLOOD UREA NITROGEN 10 MG/DL (7-18); CALCIUM LEVEL 9.5 MG/DL (8.8-10.2); CARBON DIOXIDE LEVEL 37 MEQ/L (21-32); CHLORIDE LEVEL 96 MEQ/L (98-107); CHOLESTEROL LEVEL 141 MG/DL (<200); CHOLESTEROL RISK RATIO 2.711 (<5); CREATININE FOR GFR 0.97 MG/DL (0.55-1.30); GLOMERULAR FILTRATION RATE > 60.0 (>45); GLUCOSE, FASTING 76 MG/DL (70-100); HDL CHOLESTEROL 52 MG/DL (>40); LDL CHOLESTEROL 60 MG/DL (<100); NON-HDL-C 89 MG/DL; POTASSIUM SERUM 4.1 MEQ/L (3.5-5.1); SODIUM LEVEL 138 MEQ/L (136-145); TOTAL PROTEIN 7.4 GM/DL (6.4-8.2); TRIGLYCERIDES LEVEL 145 MG/DL (<150)
[2020-08-06 12:05] LABS: VITAMIN B12 LEVEL > 2000 PG/ML (247-911)
== END ==
PROVIDERS: ATTEND Nurse Practitioner Adult Health
DX: E53.8 Deficiency of other specified B group vitamins (principal); I10 Essential (primary) hypertension; E78.2 Mixed hyperlipidemia

== ENCOUNTER → 2020-08-14 | Outpatient (CLI) | payer MEDICARE, MEDICAID ==
[~2020-08-14] MED LIST changes: +BUPR150T12 PO; -BUPR150T4 PO
--- NOTE | 2020-08-14 13:25 | REPMRS ---
Patient History The patient states she has not had a clinical breast exam in over a year. Family history of colorectal cancer in sister. Took hormonal contraceptives for 1 month. Digital Woman Screen Mammo: August 14, 2020 - Exam #: [id number] Bilateral CC and MLO view(s) were taken. Technologist: Nahomy Beach, Technologist Prior study comparison: August 02, 2018, bilateral digital mammo screening bilat, performed at [facility]. August 22, 2013, bilateral digital mammo screening bilat, performed at [facility]. August 25, 2012, bilateral bilat screen digital mammo, performed at [facility] ([facility]). FINDINGS: There are scattered fibroglandular densities. The Volpara volumetric breast density category is:B. There are small nodular densities projecting bilaterally which are unchanged from 2013 prior study. There has been no change in the appearance of the mammogram from the prior studies. There is a mild amount of scattered fibroglandular density which is fairly symmetric. There is no interval development of dominant mass, architectural distortion, or grouped microcalcification suggestive of malignancy. 3-D tomosynthesis shows no additional findings. Assessment: BI-RADS/ACR category 2 mammogram. Benign Findings. Recommendation Routine screening mammogram of both breasts in 1 year (for women over age 40). This patient's [facility] Lifetime Breast Cancer Risk is estimated at 5.4 %. This mammogram was interpreted with the aid of an FDA-approved computer-aided dectection system. Electronically Signed By: Vaughn Lowe MD 08/14/20 2511
== END ==
LOC: M WHC 10:35
PROVIDERS: ATTEND Nurse Practitioner Adult Health
DX: Z12.31 Encounter for screening mammogram for malignant neoplasm of breast (principal); Z80.0 Family history of malignant neoplasm of digestive organs

== ENCOUNTER → 2021-02-03 | Outpatient (REF) | payer MEDICARE, MEDICAID ==
[2021-02-03 10:49] LABS: HEMOGLOBIN 12.2 g/dl (12.0-15.5); MEAN CORPUSCULAR HEMOGLOBIN 28.3 pg (27.0-33.0); MEAN CORPUSCULAR HGB CONC 29.8 g/dl (32.0-36.5); MEAN CORPUSCULAR VOLUME 95.1 fl (80.0-96.0); PLATELET COUNT, AUTOMATED 156 10^3/uL (150-450); RED BLOOD COUNT 4.31 10^6/uL (4.00-5.40); WHITE BLOOD COUNT 6.1 10^3/uL (4.0-10.0)
[2021-02-03 11:08] LABS: ALBUMIN 3.3 GM/DL (3.2-5.2); ALT/SGPT 15 U/L (12-78); BILIRUBIN,TOTAL 0.4 MG/DL (0.2-1.0); BLOOD UREA NITROGEN 9 MG/DL (7-18); CALCIUM LEVEL 8.5 MG/DL (8.8-10.2); CARBON DIOXIDE LEVEL 32 MEQ/L (21-32); CHLORIDE LEVEL 104 MEQ/L (98-107); CHOLESTEROL LEVEL 138 MG/DL (<200); CHOLESTEROL RISK RATIO 2.421 (<5); CREATININE FOR GFR 0.85 MG/DL (0.55-1.30); FERRITIN 12 NG/ML (8-252); GLOMERULAR FILTRATION RATE > 60.0 (>45); GLUCOSE, FASTING 87 MG/DL (70-100); HDL CHOLESTEROL 57 MG/DL (>40); IRON (FE) 68 UG/DL (50-170); LDL CHOLESTEROL 58 MG/DL (<100); NON-HDL-C 81 MG/DL; PERCENT SATURATION 16.6 % (13.2-45.0); POTASSIUM SERUM 4.3 MEQ/L (3.5-5.1); SODIUM LEVEL 141 MEQ/L (136-145); TOTAL IRON BINDING CAPACITY 410 UG/DL (250-450); TOTAL PROTEIN 6.9 GM/DL (6.4-8.2); TRIGLYCERIDES LEVEL 117 MG/DL (<150)
[2021-02-03 11:24] LABS: VITAMIN B12 LEVEL 1324 PG/ML (247-911)
== END ==
PROVIDERS: ATTEND Nurse Practitioner Adult Health
DX: E78.2 Mixed hyperlipidemia (principal); I10 Essential (primary) hypertension; J44.9 Chronic obstructive pulmonary disease, unspecified; E53.8 Deficiency of other specified B group vitamins

== ENCOUNTER → 2021-04-30 | Outpatient (CLI) | payer MEDICARE, MEDICAID ==
[~2021-04-30] MED LIST changes: +ADV250INH; +FERR32TA PO; +TRAM50TA2 PO
== END ==
LOC: M LABSMTC 12:36
PROVIDERS: ATTEND Anesthesiology
DX: Z01.818 Encounter for other preprocedural examination (principal); Z11.52 Encounter for screening for COVID-19

== ENCOUNTER 2021-05-05 08:00 | Day surgery (SDC) | payer MEDICARE, MEDICAID ==
[~2021-05-05] VITALS: Ht 167.6 cm; Wt 82.1 kg
[~2021-05-05 08:00] MED LIST changes: +NS 1,000 ML IV ONE
--- OUTSIDE RECORDS SUMMARY | 2021-05-05 08:06 | CCD ---
Author Author [facility] Organization [facility] Address Unknown Phone Unavailable Care Team Providers Care Tube Coater Name Role Phone Hortencia Deal Unavailable PROBLEMS Type Condition ICD9-CM Code [id number] Code Onset Dates Condition S tatus W/U Status Risk SNOMED Code Notes Problem Gastro-esophageal reflux disease without esophagitis K21.9 Active confirmed 619335559 Problem Other amnesia R41.3 Active confirmed 016663 00 Problem Mixed hyperlipidemia E78.2 Active confirmed 513682282 Problem History of alcoholism F10.21 Active confirmed 620145253 Problem Dementia without behavioral disturbance, unspeci fied dementia type F03.90 Active confirmed 46830788 Problem Compression fracture of body of thoracic vertebra S22.000A Active confirmed 770890190 Problem Generalized anxiety disorder F41.1 Active confirme d 37519933 Problem Diverticulosis K57.90 Active confirmed 10322 1000 Problem Polyneuropathy, unspecified G62.9 Active confirmed 22580640 Problem Chronic obstructive pulmonary disease, unspecified COPD ty pe J44.9 Active confirmed 13490540 Problem Vitamin B 12 deficiency E53.8 Active confirmed 721872623 Problem Dysthymia F34.1 Active confirmed 54924594 Problem Essential hypertension I10 Active confirmed 79958561 ALLERGIES Allergen (clinical drug ingredient) Drug/Non Drug Allergy do cumented on EMR Reaction Allergy Type Onset Date Status Penicillin (For Allergies Use Only) Unknown Drug Allerg y 09/20/2018 Active erythromycin Erythromycin Base(NDC Code:[address]-69) Unknown Drug Allergy 09/20/2018 Active aspirin Aspirin(ND Code:[address]-12) Nausea/Vomiting Drug Aller gy 09/20/2018 Active ENCOUNTERS from 1955 to 2021-05-02 Encounter Location Date Provider Diagnosis [facility] [address] [facility] [phone] [place] [address] 10 Apr, 2021 Hortencia Deal IMMUNIZATIONS Vaccine Route Administration Date Status COVID-19 dose #2 given elsewhere Unspecified Unknown Aug 05, 2020 Administered COVID-19 dose #1 given elsewhere Unspecified Unknown Jul 15, 2020 Administered Influenza Pharmacy Given Unknown Apr 15, 2020 Adminis tered Influenza 18 yrs & older [facility] Unknown Apr 05, 2018 Administered Influenza 18 yrs & older [facility] Unknown Apr 05, 2018 Administered Influenza 6-35 months IM Intramuscular Apr 05, 2019 Administe tre SOCIAL HISTORY Tobacco Use: Social History Observation Description Date Details (start date - stop date) Current Smoker Sex Assigned At : Social History Observation Description Sex Assigned At Unknown Education: Question Answer Notes Level of Education: Not finished High School Got GED in 1972 Audit Question Answer Notes Total Score: 0 Interpretation: Alcohol Education Language: Question Answer Notes Languages spoken: Colombian Mormon: Question Answer Notes Mormon 15 [employer] Domestic Violence: Question Answer Notes Status: lives at [place] [address] Sexual Hx: Question Answer Notes Had sex in the last 12 months (vaginal, oral, or anal)? No LMP: post menopausal Have you ever had an STD? Yes GC? Yes Drug and Alcohol Question Answer Notes Total Score: 0 Interpretation: No problems reported Alcohol Screening: Question Answer Notes Did you have a drink containing alcohol in the past year? No Points 0 Interpretation Negative Tobacco Use: Question Answer Notes Are you a: current smoker Smoking Cessation Information Given 07/30/2020 Patient counseled on the dangers of tobacco use and urged to quit: 07/30/2020 How many cigarettes a day do you smoke? 5 or less Are you interested in quitting? Not ready to quit Counseled the patient on smoking effects, education provided 07/30/2020 REASON FOR REFERRAL No Information VITAL SIGNS No information MEDICATIONS Medication SIG (Take, Route, Frequency, Duration) Notes Start Da te End Date Status guaiFENesin-DM 100-10 MG/5ML 10 ml Orally every 4 hrs as needed for cough cough Active Vitamin B1 100 MG 1 tablet Orally Once a day Active Namenda 5 MG 1 tablet Orally Twice a day for 90 days Active Zocor 20 MG 1 tablet in the evening Orally Once a day for 90 days Active Citalopram Hydrobromide 20 MG 1 tablet Orally Once a day for 30 days Active buPROPion HCl ER (SR) 150 MG 1 tablet in the morning Orally Once a da y Active Ferrous Gluconate 324 (38 Fe) MG 1 tablet with water o r juice between meals Orally wednesday thru wednesday for 30 days Jan, Active Gabapentin 300 MG 1 capsule Orally four times daily for 90 days Anticonvulsant Active Maalox Advanced 024-324-38hfw/5 ml- give 30 cc orally every 4 hours as needed/ for indigestion indigestion Active Milk of Magnesia 400 MG/5ML 30 mls Orally twice daily as needed con stipation Active Ipratropium-Albuterol 0.5-2.5 (3) MG/3ML 3 ml/1 vial I nhalation every 4 hours as needed /shortness of breath shortness of breath Active Bisoprolol Fumarate 5 MG 1 tablet Orally Once a day Active Multivitamin Adult - 1 tab Orally Daily for 30 days diet supplement Active Albuterol Sulfate HFA 108 (90 Base) MCG/ACT 2 puff as needed Inhalation every 4 hrs for shortness of breath may have at bedside for 30 days 2020 Active Vitamin B-12 1000 MCG 1 tablet Orally Once a day Active traZODone HCl 100 MG 1 tablet at bedtime Orally Once a day f or 30 day(s) Depression Active Advair Diskus 250-50 MCG/DOSE 1 puff Inhalation Twice a day for 30 days Jan, Active Clindamycin Phosphate 1 % 1 application acne on face E xternally Once a day as needed face for acne Active Folic Acid 1 MG 1 tablet Orally Once a day for 90 days Active Omeprazole 40 MG 1 capsule 30 minutes before morning meal Orally Once a day for 90 days Jun, Active KlonoPIN 0.5 MG 1 tablet [id number] twice daily mdd2 for 30 days Mar, Active Albuterol Sulfate HFA 108 MCG/ACT 2 puffs as needed fo r shortness of breath Inhalation every 6 hrs for 25 Ac tive Acetaminophen 500 MG 2 tablets Orally every 6 hrs as needed pain cont rol Active PROCEDURES No Information RESULTS No Results REASON FOR VISIT refill MEDICAL (GENERAL) HISTORY Type Description Date Medical History History of alcoholism Medical History Dysthymia Medical History Other amnesia Medical History Gastro-esophageal reflux disease without esophagitis Medical History Mixed hyperlipidemia Medical History Essential hypertension Medical History Chronic obstructive pulmonary disease, u nspecified COPD type Medical History Vitamin B 12 deficiency Medical History Polyneuropathy, unspecified Medical History Generalized anxiety disorder Medical History Dementia without behavioral disturbance, unspecified dementia type Surgical History No Surgical history information Goals Section No Information Health Concerns No Information MEDICAL EQUIPMENT No Information MENTAL STATUS No Information FUNCTIONAL STATUS No Information ASSESSMENTS No Information PLAN OF TREATMENT Medication Medication Name Sig Start Date Stop Date Ferrous Gluconate 324 (38 Fe) MG 1 tablet with water o r juice between meals Orally wednesday thru wednesday for 30 days Jan, KlonoPIN 0.5 MG 1 tablet [id number] twice daily mdd 2 for 30 days Mar, Advair Diskus 250-50 MCG/DOSE 1 puff Inhalation Twice a day for 30 days Jan, Albuterol Sulfate HFA 108 (90 Base) MCG/ACT 2 puff as needed Inhalation every 4 hrs for shortness of breath may have at bedside for 30 days Jan, Zocor 20 MG 1 tablet in the evening Orally Once a day for 90 days buPROPion HCl ER (SR) 150 MG 1 tablet in the morning Orally Once a day Bisoprolol Fumarate 5 MG 1 tablet Orally Once a day Citalopram Hydrobromide 20 MG 1 tablet Orally Once a day for 30 days Vitamin B1 100 MG 1 tablet Orally Once a day Vitamin B-12 1000 MCG 1 tablet Orally Once a day Gabapentin 300 MG 1 capsule Orally four times daily for 90 days traZODone HCl 100 MG 1 tablet at bedtime Orally Once a day for 3 0 day(s) Folic Acid 1 MG 1 tablet Orally Once a day for 90 days Namenda 5 MG 1 tablet Orally Twice a day for 90 days Omeprazole 40 MG 1 capsule 30 minutes before morning meal Orally Once a day for 90 days Jun, Next Appt Details Provider Name:Hortencia Deal, 08:00:00 AM, [address] [facility], , [place], [address], Insurance Providers Payer Name Payer Address Payer Phone Insured Name Patient Relati onship to Insured Coverage Start Date Coverage End Date MEDICAID [employer] [address] [facility] [id number] KEELY NAGEL self
--- OUTSIDE RECORDS SUMMARY | 2021-05-05 08:06 | CCD ---
Author Author [facility] Organization [facility] Address Unknown Phone Unavailable Care Team Providers Care Briquette Maker Name Role Phone Hortencia Deal Unavailable PROBLEMS Type Condition ICD9-CM Code [id number] Code Onset Dates Condition S tatus W/U Status Risk SNOMED Code Notes Problem Gastro-esophageal reflux disease without esophagitis K21.9 Active confirmed 963399894 Problem Other amnesia R41.3 Active confirmed 624245 00 Problem Mixed hyperlipidemia E78.2 Active confirmed 915782564 Problem History of alcoholism F10.21 Active confirmed 355220640 Problem Dementia without behavioral disturbance, unspeci fied dementia type F03.90 Active confirmed 60796522 Problem Compression fracture of body of thoracic vertebra S22.000A Active confirmed 490205198 Problem Generalized anxiety disorder F41.1 Active confirme d 70612038 Problem Diverticulosis K57.90 Active confirmed 21177 1000 Problem Polyneuropathy, unspecified G62.9 Active confirmed 08732650 Problem Chronic obstructive pulmonary disease, unspecified COPD ty pe J44.9 Active confirmed 95359033 Problem Vitamin B 12 deficiency E53.8 Active confirmed 185058683 Problem Dysthymia F34.1 Active confirmed 27557784 Problem Essential hypertension I10 Active confirmed 19512040 ALLERGIES Allergen (clinical drug ingredient) Drug/Non Drug Allergy do cumented on EMR Reaction Allergy Type Onset Date Status Penicillin (For Allergies Use Only) Unknown Drug Allerg y 09/20/2018 Active erythromycin Erythromycin Base(NDC Code:[address]-84) Unknown Drug Allergy 09/20/2018 Active aspirin Aspirin(ND Code:[address]-82) Nausea/Vomiting Drug Aller gy 09/20/2018 Active ENCOUNTERS from 1955 to 2021-03-27 Encounter Location Date Provider Diagnosis [facility] Ke[facility] [address] [facility] [phone] [place] [address] 04 Mar, 2021 Hortenciakareem Ungermellisa Generalized anxiety disorder F41.1 IMMUNIZATIONS Vaccine Route Administration Date Status COVID-19 [...] months IM Intramuscular Apr 05, 2019 Administe red SOCIAL HISTORY Tobacco Use: Social History Observation Description Date Details (start date - stop date) Current Smoker Sex Assigned At : Social History Observation Description Sex Assigned At Unknown Education: Question Answer Notes Level of Education: Not finished High School Got GED in 1972 Audit Question Answer Notes Total Score: 0 Interpretation: Alcohol Education Language: Question Answer Notes Languages spoken: Bolivian Mormonism: Question Answer Notes Mormonism 15 [employer] Domestic Violence: Question Answer Notes Status: lives at [place] [address] Sexual Hx: Question Answer Notes Had sex [...] Notes Start Da te End Date Status Acetaminophen 500 MG 2 tablets Orally every 6 hrs as needed pain cont rol Active Omeprazole 40 MG 1 capsule 30 minutes before morning meal Orally Once a day Jun, Active traZODone HCl 100 MG 1 tablet at bedtime Orally Once a day f or 30 day(s) Depression Active Vitamin B1 100 MG 1 tablet Orally Once a day Active Advair Diskus 250-50 MCG/DOSE 1 puff Inhalation Twice a day for 30 days Jan, Active Folic Acid 1 MG 1 tablet Orally Once a day Active Gabapentin 300 MG 1 capsule Orally four times daily for 30 day(s) Anticonvulsant Active guaiFENesin-DM 100-10 MG/5ML 10 ml Orally every 4 hrs as needed for cough cough Active Maalox Advanced [id number]/5 ml- give 30 cc orally every 4 hours as needed/ for indigestion indigestion Active Milk of Magnesia 400 MG/5ML 30 mls Orally twice daily as needed con stipation Active Ipratropium-Albuterol 0.5-2.5 (3) MG/3ML 3 ml/1 vial I nhalation every 4 hours as needed /shortness of breath shortness of breath Active Multivitamin Adult - 1 tab Orally Daily for 30 days diet supplement Active Citalopram Hydrobromide 20 MG 1 tablet Orally Once a day for 30 days Active Ferrous Gluconate 324 (38 Fe) MG 1 tablet with water o r juice between meals Orally wednesday thru wednesday for 30 days Jan, Active Clindamycin Phosphate 1 % 1 application acne on face E xternally Once a day as needed face for acne Active Namenda 5 MG 1 tablet Orally Twice a day Active Albuterol Sulfate HFA 108 MCG/ACT 2 puffs as needed fo r shortness of breath Inhalation every 6 hrs for 25 Ac tive Bisoprolol Fumarate 5 MG 1 tablet Orally Once a day Active buPROPion HCl ER (SR) 150 MG 1 tablet in the morning Orally Once a da y Active Zocor 20 MG 1 tablet in the evening Orally Once a day for 90 days Active KlonoPIN 0.5 MG 1 tablet [id number] twice daily mdd2 for 30 days Mar, Active Albuterol Sulfate HFA 108 (90 Base) MCG/ACT 2 puff as needed Inhalation every 4 hrs for shortness of breath may have at bedside for 30 days 2020 Active Vitamin B-12 1000 MCG 1 tablet Orally Once a day Active PROCEDURES No Information RESULTS No Results [...] No Information FUNCTIONAL STATUS No Information ASSESSMENTS Encounter Date Diagnosis Assessment Notes Treatment Notes Treatm ent Clinical Notes Mar, Generalized anxiety disorder (ICD-10 - F41.1) PLAN OF TREATMENT Medication Medication Name Sig Start Date Stop Date Ferrous Gluconate 324 (38 Fe) MG 1 tablet with water o r juice between meals Orally wednesday thru wednesday for 30 days Jan, KlonoPIN 0.5 MG 1 tablet [id number] twice daily mdd 2 for 30 days Mar, Advair Diskus 250-50 MCG/DOSE 1 puff Inhalation Twice a day for 30 days Jan, Albuterol Sulfate HFA 108 (90 Base) MCG/ACT 2 puff as needed Inhalation every 4 hrs for shortness of breath may have at bedside for 30 days Jan, Vitamin B1 100 MG 1 tablet Orally Once a day Folic Acid 1 MG 1 tablet Orally Once a day Bisoprolol Fumarate 5 MG 1 tablet Orally Once a day Citalopram Hydrobromide 20 MG 1 tablet Orally Once a day for 30 days Omeprazole 40 MG 1 capsule 30 minutes before morning meal Orally Once a day Jun, Vitamin B-12 1000 MCG 1 tablet Orally Once a day buPROPion HCl ER (SR) 150 MG 1 tablet in the morning Orally Once a day Zocor 20 MG 1 tablet in the evening Orally Once a day for 90 days Namenda 5 MG 1 tablet Orally Twice a day traZODone HCl 100 MG 1 tablet at bedtime Orally Once a day for 3 0 day(s) Next Appt Details Provider Name:Hortencia Deal, 08:00:00 AM, [address] [facility], , [place], [address], Insurance Providers Payer Name Payer Address Payer Phone Insured Name Patient Relati onship to Insured Coverage Start Date Coverage End Date MEDICAID [employer] [address] [facility] [id number] KEELY NAGEL self
--- OUTSIDE RECORDS SUMMARY | 2021-05-05 08:06 | CCD ---
Author Author [facility] Organization [facility] Address Unknown Phone Unavailable Care Team Providers Care Final Inspector Shuttle Name Role Phone Hortencia Deal Unavailable PROBLEMS Type Condition ICD9-CM Code [id number] Code Onset Dates Condition S tatus W/U Status Risk SNOMED Code Notes Problem Gastro-esophageal reflux disease without esophagitis K21.9 Active confirmed 054582809 Problem Other amnesia R41.3 Active confirmed 470230 00 Problem Mixed hyperlipidemia E78.2 Active confirmed 961455174 Problem History of alcoholism F10.21 Active confirmed 748472459 Problem Dementia without behavioral disturbance, unspeci fied dementia type F03.90 Active confirmed 21920393 Problem Compression fracture of body of thoracic vertebra S22.000A Active confirmed 345161775 Problem Generalized anxiety disorder F41.1 Active confirme d 16667452 Problem Diverticulosis K57.90 Active confirmed 92652 1000 Problem Polyneuropathy, unspecified G62.9 Active confirmed 24335474 Problem Chronic obstructive pulmonary disease, unspecified COPD ty pe J44.9 Active confirmed 35810566 Problem Vitamin B 12 deficiency E53.8 Active confirmed 345399672 Problem Dysthymia F34.1 Active confirmed 78504963 Problem Essential hypertension I10 Active confirmed 05220048 ALLERGIES Allergen (clinical drug ingredient) Drug/Non Drug Allergy do cumented on EMR Reaction Allergy Type Onset Date Status Penicillin (For Allergies Use Only) Unknown Drug Allerg y 09/20/2018 Active erythromycin Erythromycin Base(NDC Code:[address]-78) Unknown Drug Allergy 09/20/2018 Active aspirin Aspirin(ND Code:[address]-66) Nausea/Vomiting Drug Aller gy 09/20/2018 Active ENCOUNTERS from 1955 to 2021-04-08 Encounter Location Date Provider Diagnosis [facility] [facility] [phone] [place] [address] Mar, Hortencia Deal IMMUNIZATIONS Vaccine Route Administration Date [...] Education Language: Question Answer Notes Languages spoken: Fijian Buddhist: Question Answer Notes Buddhist 15 [employer] Domestic Violence: Question Answer Notes Status: lives at [place] [id number] Sexual Hx: Question Answer Notes Had sex [...] 1 tablet Orally Once a day Active Citalopram Hydrobromide 20 MG 1 tablet Orally Once a day for 30 days Active Folic Acid 1 MG 1 tablet Orally Once a day Active Ferrous Gluconate 324 (38 Fe) MG 1 tablet with water o r juice between meals Orally wednesday thru wednesday for 30 days Jan, Active guaiFENesin-DM 100-10 MG/5ML 10 ml Orally every 4 hrs as needed for cough cough Active Maalox Advanced [id number]/5 ml- give 30 cc orally every 4 [...] at bedside for 30 days 2020 Active Clindamycin Phosphate 1 % 1 application acne on face E xternally Once a day as needed face for acne Active Namenda 5 MG 1 tablet Orally Twice a day Active Advair Diskus 250-50 MCG/DOSE 1 puff Inhalation Twice a day for 30 days Jan, Active Gabapentin 300 MG 1 capsule Orally four times daily for 30 day(s) Anticonvulsant Active buPROPion HCl ER (SR) 150 MG 1 tablet in the morning Orally Once a da y Active Zocor 20 MG 1 tablet in the evening Orally Once a day for 90 days Active KlonoPIN 0.5 MG 1 tablet [id number] twice daily mdd2 for 30 days Mar, Active Albuterol Sulfate HFA 108 MCG/ACT 2 puffs as needed fo r shortness of breath Inhalation every 6 hrs for 25 Ac tive Vitamin B-12 1000 MCG 1 tablet Orally Once a day Active PROCEDURES No Information RESULTS No Results REASON FOR VISIT refill- gabapentin MEDICAL (GENERAL) HISTORY Type Description Date Medical [...] days Jan, KlonoPIN 0.5 MG 1 tablet [id number] twice daily mdd 2 for 30 days Mar, Advair Diskus 250-50 MCG/DOSE 1 puff Inhalation Twice a day for 30 days Jan, Albuterol Sulfate HFA 108 (90 Base) MCG/ACT 2 puff as needed Inhalation every 4 hrs for shortness of breath may have at bedside for 30 days Jan, Folic Acid 1 MG 1 tablet Orally Once a day Omeprazole 40 MG 1 capsule 30 minutes before morning meal Orally Once a day Jun, Bisoprolol Fumarate 5 MG 1 tablet Orally Once a day Citalopram Hydrobromide 20 MG 1 tablet Orally Once a day for 30 days Vitamin B-12 1000 MCG 1 tablet Orally Once a day Gabapentin 300 MG 1 capsule Orally four times daily for 30 day(s ) Vitamin B1 100 MG 1 tablet Orally Once a day Namenda 5 MG 1 tablet Orally Twice a day buPROPion HCl ER (SR) 150 MG 1 tablet in the morning Orally Once a day traZODone HCl 100 MG 1 tablet at bedtime Orally Once a day for 3 0 day(s) Zocor 20 MG 1 tablet in the evening Orally Once a day for 90 days Next Appt Details Provider Name:Hortencia Deal, 08:00:00 AM, [address] [facility], , [place], [address], Insurance Providers Payer Name Payer Address Payer Phone Insured Name Patient Relati onship to Insured Coverage Start Date Coverage End Date MEDICAID [id number] [facility] [id number] KEELY NAGEL
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
--- OUTSIDE RECORDS SUMMARY | 2021-05-05 08:08 | CCD ---
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 Role Phone MCELHERAN, CHARLES PA Unavailable Unavailable MCELHERAN, CHARLES PA Unavailable Unavailable MCELHERAN, CHARLES PA Unavailable Unavailable MCELHERAN, CHARLES PA Unavailable Unavailable MCELHERAN, CHARLES PA Unavailable Unavailable MCELHERAN, CHARLES PA Unavailable Unavailable MCELHERAN, CHARLES PA Unavailable Unavailable MCELHERAN, CHARLES PA Unavailable Unavailable MCELHERAN, CHARLES PA Unavailable Unavailable MCELHERAN, CHARLES PA Unavailable Unavailable MCELHERAN, CHARLES PA Unavailable Unavailable MCELHERAN, CHARLES PA Unavailable Unavailable MCELHERAN, CHARLES PA Unavailable Unavailable MCELHERAN, CHARLES PA Unavailable Unavailable MCELHERAN, CHARLES PA Unavailable Unavailable MCELHERAN, CHARLES PA Unavailable Unavailable MCELHERAN, CHARLES PA Unavailable Unavailable MCELHERAN, CHARLES PA Unavailable Unavailable MCELHERAN, CHARLES PA Unavailable Unavailable MCELHERAN, CHARLES PA Unavailable Unavailable MCELHERAN, CHARLES PA Unavailable Unavailable MCELHERAN, CHARLES PA Unavailable Unavailable MCELHERAN, CHARLES PA Unavailable Unavailable MCELHERAN, CHARLES PA Unavailable Unavailable MCELHERAN, CHARLES PA Unavailable Unavailable MCELHERAN, CHARLES PA Unavailable Unavailable MCELHERAN, CHARLES PA Unavailable Unavailable MCELHERAN, CHARLES PA Unavailable Unavailable MCELHERAN, CHARLES PA Unavailable Unavailable Re-disclosure Warning The records that you are about to access may contain information from federally-assisted alcohol or drug abuse programs. If such information is present, then the following federally mandated warning applies: This information has been disclosed to you from records protected by federal confidentiality rules (42 CFR part 2). The federal rules prohibit you from making any further disclosure of this information unless further disclosure is expressly permitted by the written consent of the person to whom it pertains or as otherwise permitted by 42 CFR part 2. A general authorization for the release of medical or other information is NOT sufficient for this purpose. The Federal rules restrict any use of the information to criminally investigate or prosecute any alcohol or drug abuse patient.The records that you are about to access may contain highly sensitive health information, the redisclosure of which is protected by Article 27-F of the [facility] Public Health law. If you continue you may have access to information: Regarding HIV / AIDS; Provided by facilities licensed or operated by the [facility] Office of Mental Health; or Provided by the [facility] Office for People With Developmental Disabilities. If such information is present, then the following [facility] mandated warning applies: This information has been disclosed to you from confidential records which are protected by state law. State law prohibits you from making any further disclosure of this information without the specific written consent of the person to whom it pertains, or as otherwise permitted by law. Any unauthorized further disclosure in violation of state law may result in a fine or retirement sentence or both. A general authorization for the release of medical or other information is NOT sufficient authorization for further disc losure. Family History Family Member Name Family Member Gender Family Member Status Date o f Status Description Data Source(s) Unknown Unknown Problem MEDENT ([facility], ) Unknown Unknown Problem MEDENT ([facility]) 1 Son Daniel at age 32 of overdose 1 daughter, is an Alcoholic, Shayla Unknown Unknown Problem MEDENT ([facility]) Encounters Encounter Providers Location Date Indications Data Source(s ) [place] [address] [facility] [address] 04/24/2021 12:00:00 AM EDT eCW1 ([facility]) [place] [address] [facility] [address] 04/07/2021 12:00:00 AM EDT eCW1 ([facility]) [place] [address] [facility] [address] 03/26/2021 12:00:00 AM EDT eCW1 ([facility]) [place] [address] [facility] [address] 03/24/2021 12:00:00 AM EDT eCW1 ([facility]) [place] [address] [facility] [address] 03/24/2021 12:00:00 AM EDT eCW1 ([facility]) [place] [address] [facility] [address] 03/17/2021 12:00:00 AM EDT eCW1 ([facility]) [place] [address] [facility] [address] 03/13/2021 12:00:00 AM EDT eCW1 ([facility]) [place] [address] [facility] [address] 03/04/2021 12:00:00 AM EDT eCW1 ([facility]) [place] [address] [facility] [address] 02/25/2021 12:00:00 AM EDT eCW1 ([facility]) [place] [address] [facility] [address] 02/20/2021 12:00:00 AM EDT eCW1 ([facility]) [place] [address] [facility] [address] 02/07/2021 12:00:00 AM EDT eCW1 ([facility]) [place] [address] [facility] [address] 02/06/2021 12:00:00 AM EDT eCW1 ([facility]) [place] [address] [facility] [address] 02/04/2021 12:00:00 AM EDT eCW1 ([facility]) [place] [address] [facility] [address] 02/04/2021 12:00:00 AM EDT eCW1 ([facility]) [place] [address] [facility] [address] 02/03/2021 12:00:00 AM EDT eCW1 ([facility]) [place] [address] [facility] [address] 02/01/2021 12:00:00 AM EDT eCW1 ([facility]) Outpatient [address] [facility] [address] 01/28/2021 12:00:00 AM EDT eCW1 ([facility]) [place] [address] [facility] [address] 01/21/2021 12:00:00 AM EDT eCW1 ([facility]) [place] [address] [facility] [address] 01/20/2021 12:00:00 AM EDT eCW1 ([facility]) [place] [address] [facility] [address] 01/02/2021 12:00:00 AM EDT eCW1 ([facility]) [place] [address] [facility] [address] 01/02/2021 12:00:00 AM EDT eCW1 ([facility]) [place] [address] [facility] [address] 12/28/2020 12:00:00 AM EDT eCW1 ([facility]) Unknown [address] [facility] [address] 12/09/2020 12:00:00 AM EDT eCW1 ([facility]) [place] [address] [facility] [address] 12/03/2020 12:00:00 AM EDT eCW1 ([facility]) Unknown [address] [facility] [address] 12/02/2020 12:00:00 AM EDT eCW1 ([facility]) Unknown [address] [facility] [address] 11/11/2020 12:00:00 AM EDT eCW1 ([facility]) Unknown [address] [facility] [address] 10/09/2020 12:00:00 AM EDT eCW1 ([facility]) Unknown [address] [facility] [address] 10/07/2020 12:00:00 AM EDT eCW1 ([facility]) Unknown [address] [facility] [address] 09/12/2020 12:00:00 AM EDT eCW1 ([facility]) Unknown [address] [facility] [address] 09/06/2020 12:00:00 AM EDT eCW1 ([facility]) [place] [address] [facility] [address] 08/22/2020 12:00:00 AM EST eCW1 ([facility]) Outpatient [address] [facility] [address] 07/30/2020 12:00:00 AM EST eCW1 ([facility]) Unknown [address] [facility] [address] 07/22/2020 12:00:00 AM EST eCW1 ([facility]) Unknown [address] [facility] [address] 07/15/2020 12:00:00 AM EST eCW1 ([facility]) Unknown [address] [facility] [address] 06/13/2020 12:00:00 AM EST eCW1 ([facility]) Unknown [address] [facility] [address] 05/13/2020 12:00:00 AM EST eCW1 ([facility]) [place] [address] [facility] [place] [address] 05/02/2020 12:00:00 AM EST eCW1 ([facility]) Outpatient Attender: CHARLES CORTES Physical Therapy 04/26/2020 01:15:00 PM EST MEDENT ([facility]) [place] [address] [facility] [address] 04/17/2020 12:00:00 AM EDT eCW1 ([facility]) Unknown [address] [facility] [address] 04/17/2020 12:00:00 AM EDT eCW1 ([facility]) Unknown [address] [facility] [address] 04/16/2020 12:00:00 AM EDT eCW1 ([facility]) Unknown [address] [facility] [address] 04/15/2020 12:00:00 AM EDT eCW1 ([facility]) Unknown [address] [facility] [address] 04/08/2020 12:00:00 AM EDT eCW1 ([facility]) Unknown [address] [facility] [address] 03/28/2020 12:00:00 AM EDT eCW1 ([facility]) Unknown [address] [facility] [address] 03/28/2020 12:00:00 AM EDT eCW1 ([facility]) Outpatient Attender: CHARLES CORTES Physical Therapy 03/18/2020 03:30:00 PM EDT MEDENT ([facility]) Immunizations Vaccine Date Status Description Data Source(s) COVID-19 dose #2 given elsewhere Unspecified 08/05/2020 04:1 5:00 PM EST completed eCW1 ([facility]) COVID-19 dose #2 given elsewhere Unspecified 08/05/2020 04:1 5:00 PM EST completed eCW1 ([facility]) COVID-19 dose #2 given elsewhere Unspecified 08/05/2020 04:1 5:00 PM EST completed eCW1 ([facility]) COVID-19 dose #2 given elsewhere Unspecified 08/05/2020 04:1 5:00 PM EST completed eCW1 ([facility]) COVID-19 dose #2 given elsewhere Unspecified 08/05/2020 04:1 5:00 PM EST completed eCW1 ([facility]) COVID-19 dose #2 given elsewhere Unspecified 08/05/2020 04:1 5:00 PM EST completed eCW1 ([facility]) COVID-19 dose #2 given elsewhere Unspecified 08/05/2020 04:1 5:00 PM EST completed eCW1 ([facility]) COVID-19 dose #2 given elsewhere Unspecified 08/05/2020 04:1 5:00 PM EST completed eCW1 ([facility]) COVID-19 dose #2 given elsewhere Unspecified 08/05/2020 04:1 5:00 PM EST completed eCW1 ([facility]) COVID-19 dose #2 given elsewhere Unspecified 08/05/2020 04:1 5:00 PM EST completed eCW1 ([facility]) COVID-19 dose #2 given elsewhere Unspecified 08/05/2020 04:1 5:00 PM EST completed eCW1 ([facility]) COVID-19 dose #2 given elsewhere Unspecified 08/05/2020 04:1 5:00 PM EST completed eCW1 ([facility]) COVID-19 dose #2 given elsewhere Unspecified 08/05/2020 04:1 5:00 PM EST completed eCW1 ([facility]) COVID-19 dose #2 given elsewhere Unspecified 08/05/2020 04:1 5:00 PM EST completed eCW1 ([facility]) COVID-19 dose #2 given elsewhere Unspecified 08/05/2020 04:1 5:00 PM EST completed eCW1 ([facility]) COVID-19 dose #2 given elsewhere Unspecified 08/05/2020 04:1 5:00 PM EST completed eCW1 ([facility]) COVID-19 dose #2 given elsewhere Unspecified 08/05/2020 04:1 5:00 PM EST completed eCW1 ([facility]) COVID-19 dose #2 given elsewhere Unspecified 08/05/2020 04:1 5:00 PM EST completed eCW1 ([facility]) COVID-19 dose #2 given elsewhere Unspecified 08/05/2020 04:1 5:00 PM EST completed eCW1 ([facility]) COVID-19 dose #2 given elsewhere Unspecified 08/05/2020 04:1 5:00 PM EST completed eCW1 ([facility]) COVID-19 dose #2 given elsewhere Unspecified 08/05/2020 04:1 5:00 PM EST completed eCW1 ([facility]) COVID-19 dose #2 given elsewhere Unspecified 08/05/2020 04:1 5:00 PM EST completed eCW1 ([facility]) COVID-19 dose #2 given elsewhere Unspecified 08/05/2020 04:1 5:00 PM EST completed eCW1 ([facility]) COVID-19 dose #2 given elsewhere Unspecified 08/05/2020 04:1 5:00 PM EST completed eCW1 ([facility]) COVID-19 dose #2 given elsewhere Unspecified 08/05/2020 04:1 5:00 PM EST completed eCW1 ([facility]) COVID-19 dose #2 given elsewhere Unspecified 08/05/2020 04:1 5:00 PM EST completed eCW1 ([facility]) COVID-19 dose #2 given elsewhere Unspecified 08/05/2020 04:1 5:00 PM EST completed eCW1 ([facility]) COVID-19 dose #2 given elsewhere Unspecified 08/05/2020 04:1 5:00 PM EST completed eCW1 ([facility]) COVID-19 dose #2 given elsewhere Unspecified 08/05/2020 04:1 5:00 PM EST completed eCW1 ([facility]) COVID-19 dose #2 given elsewhere Unspecified 08/05/2020 04:1 5:00 PM EST completed eCW1 ([facility]) COVID-19 dose #2 given elsewhere Unspecified 08/05/2020 04:1 5:00 PM EST completed eCW1 ([facility]) COVID-19 VACCINE Pfizer 08/05/2020 12:00:00 AM EST completed [employer] Vaccine Series Complete: YESThis Data wa s Submitted to [facility] Via [employer]. COVID-19 dose #1 given elsewhere Unspecified 07/15/2020 04:1 3:00 PM EST completed eCW1 ([facility]) COVID-19 dose #1 given elsewhere Unspecified 07/15/2020 04:1 3:00 PM EST completed eCW1 ([facility]) COVID-19 dose #1 given elsewhere Unspecified 07/15/2020 04:1 3:00 PM EST completed eCW1 ([facility]) COVID-19 dose #1 given elsewhere Unspecified 07/15/2020 04:1 3:00 PM EST completed eCW1 ([facility]) COVID-19 dose #1 given elsewhere Unspecified 07/15/2020 04:1 3:00 PM EST completed eCW1 ([facility]) COVID-19 dose #1 given elsewhere Unspecified 07/15/2020 04:1 3:00 PM EST completed eCW1 ([facility]) COVID-19 dose #1 given elsewhere Unspecified 07/15/2020 04:1 3:00 PM EST completed eCW1 ([facility]) COVID-19 dose #1 given elsewhere Unspecified 07/15/2020 04:1 3:00 PM EST completed eCW1 ([facility]) COVID-19 dose #1 given elsewhere Unspecified 07/15/2020 04:1 3:00 PM EST completed eCW1 ([facility]) COVID-19 dose #1 given elsewhere Unspecified 07/15/2020 04:1 3:00 PM EST completed eCW1 ([facility]) COVID-19 dose #1 given elsewhere Unspecified 07/15/2020 04:1 3:00 PM EST completed eCW1 ([facility]) COVID-19 dose #1 given elsewhere Unspecified 07/15/2020 04:1 3:00 PM EST completed eCW1 ([facility]) COVID-19 dose #1 given elsewhere Unspecified 07/15/2020 04:1 3:00 PM EST completed eCW1 ([facility]) COVID-19 dose #1 given elsewhere Unspecified 07/15/2020 04:1 3:00 PM EST completed eCW1 ([facility]) COVID-19 dose #1 given elsewhere Unspecified 07/15/2020 04:1 3:00 PM EST completed eCW1 ([facility]) COVID-19 dose #1 given elsewhere Unspecified 07/15/2020 04:1 3:00 PM EST completed eCW1 ([facility]) COVID-19 dose #1 given elsewhere Unspecified 07/15/2020 04:1 3:00 PM EST completed eCW1 ([facility]) COVID-19 dose #1 given elsewhere Unspecified 07/15/2020 04:1 3:00 PM EST completed eCW1 ([facility]) COVID-19 dose #1 given elsewhere Unspecified 07/15/2020 04:1 3:00 PM EST completed eCW1 ([facility]) COVID-19 dose #1 given elsewhere Unspecified 07/15/2020 04:1 3:00 PM EST completed eCW1 ([facility]) COVID-19 dose #1 given elsewhere Unspecified 07/15/2020 04:1 3:00 PM EST completed eCW1 ([facility]) COVID-19 dose #1 given elsewhere Unspecified 07/15/2020 04:1 3:00 PM EST completed eCW1 ([facility]) COVID-19 dose #1 given elsewhere Unspecified 07/15/2020 04:1 3:00 PM EST completed eCW1 ([facility]) COVID-19 dose #1 given elsewhere Unspecified 07/15/2020 04:1 3:00 PM EST completed eCW1 ([facility]) COVID-19 dose #1 given elsewhere Unspecified 07/15/2020 04:1 3:00 PM EST completed eCW1 ([facility]) COVID-19 dose #1 given elsewhere Unspecified 07/15/2020 04:1 3:00 PM EST completed eCW1 ([facility]) COVID-19 dose #1 given elsewhere Unspecified 07/15/2020 04:1 3:00 PM EST completed eCW1 ([facility]) COVID-19 dose #1 given elsewhere Unspecified 07/15/2020 04:1 3:00 PM EST completed eCW1 ([facility]) COVID-19 dose #1 given elsewhere Unspecified 07/15/2020 04:1 3:00 PM EST completed eCW1 ([facility]) COVID-19 dose #1 given elsewhere Unspecified 07/15/2020 04:1 3:00 PM EST completed eCW1 ([facility]) COVID-19 dose #1 given elsewhere Unspecified 07/15/2020 04:1 3:00 PM EST completed eCW1 ([facility]) COVID-19 VACCINE Pfizer 07/15/2020 12:00:00 AM EST completed [employer] Vaccine Series Complete: NOThis Data was Submitted to [facility] Via [employer]. IIV3. This is one of two codes replacing CVX 15, which is being retired. 04/15/2020 11:52:00 AM EDT completed eCW1 ([facility]) IIV3. This is one of two codes replacing CVX 15, which is being retired. 04/15/2020 11:52:00 AM EDT completed eCW1 ([facility]) IIV3. This is one of two codes replacing CVX 15, which is being retired. 04/15/2020 11:52:00 AM EDT completed eCW1 ([facility]) IIV3. This is one of two codes replacing CVX 15, which is being retired. 04/15/2020 11:52:00 AM EDT completed eCW1 ([facility]) IIV3. This is one of two codes replacing CVX 15, which is being retired. 04/15/2020 11:52:00 AM EDT completed eCW1 ([facility]) IIV3. This is one of two codes replacing CVX 15, which is being retired. 04/15/2020 11:52:00 AM EDT completed eCW1 ([facility]) IIV3. This is one of two codes replacing CVX 15, which is being retired. 04/15/2020 11:52:00 AM EDT completed eCW1 ([facility]) IIV3. This is one of two codes replacing CVX 15, which is being retired. 04/15/2020 11:52:00 AM EDT completed eCW1 ([facility]) IIV3. This is one of two codes replacing CVX 15, which is being retired. 04/15/2020 11:52:00 AM EDT completed eCW1 ([facility]) IIV3. This is one of two codes replacing CVX 15, which is being retired. 04/15/2020 11:52:00 AM EDT completed eCW1 ([facility]) IIV3. This is one of two codes replacing CVX 15, which is being retired. 04/15/2020 11:52:00 AM EDT completed eCW1 ([facility]) IIV3. This is one of two codes replacing CVX 15, which is being retired. 04/15/2020 11:52:00 AM EDT completed eCW1 ([facility]) IIV3. This is one of two codes replacing CVX 15, which is being retired. 04/15/2020 11:52:00 AM EDT completed eCW1 ([facility]) IIV3. This is one of two codes replacing CVX 15, which is being retired. 04/15/2020 11:52:00 AM EDT completed eCW1 ([facility]) IIV3. This is one of two codes replacing CVX 15, which is being retired. 04/15/2020 11:52:00 AM EDT completed eCW1 ([facility]) IIV3. This is one of two codes replacing CVX 15, which is being retired. 04/15/2020 11:52:00 AM EDT completed eCW1 ([facility]) IIV3. This is one of two codes replacing CVX 15, which is being retired. 04/15/2020 11:52:00 AM EDT completed eCW1 ([facility]) IIV3. This is one of two codes replacing CVX 15, which is being retired. 04/15/2020 11:52:00 AM EDT completed eCW1 ([facility]) IIV3. This is one of two codes replacing CVX 15, which is being retired. 04/15/2020 11:52:00 AM EDT completed eCW1 ([facility]) IIV3. This is one of two codes replacing CVX 15, which is being retired. 04/15/2020 11:52:00 AM EDT completed eCW1 ([facility]) IIV3. This is one of two codes replacing CVX 15, which is being retired. 04/15/2020 11:52:00 AM EDT completed eCW1 ([facility]) IIV3. This is one of two codes replacing CVX 15, which is being retired. 04/15/2020 11:52:00 AM EDT completed eCW1 ([facility]) IIV3. This is one of two codes replacing CVX 15, which is being retired. 04/15/2020 11:52:00 AM EDT completed eCW1 ([facility]) IIV3. This is one of two codes replacing CVX 15, which is being retired. 04/15/2020 11:52:00 AM EDT completed eCW1 ([facility]) IIV3. This is one of two codes replacing CVX 15, which is being retired. 04/15/2020 11:52:00 AM EDT completed eCW1 ([facility]) IIV3. This is one of two codes replacing CVX 15, which is being retired. 04/15/2020 11:52:00 AM EDT completed eCW1 ([facility]) IIV3. This is one of two codes replacing CVX 15, which is being retired. 04/15/2020 11:52:00 AM EDT completed eCW1 ([facility]) IIV3. This is one of two codes replacing CVX 15, which is being retired. 04/15/2020 11:52:00 AM EDT completed eCW1 ([facility]) IIV3. This is one of two codes replacing CVX 15, which is being retired. 04/15/2020 11:52:00 AM EDT completed eCW1 ([facility]) IIV3. This is one of two codes replacing CVX 15, which is being retired. 04/15/2020 11:52:00 AM EDT completed eCW1 ([facility]) IIV3. This is one of two codes replacing CVX 15, which is being retired. 04/15/2020 11:52:00 AM EDT completed eCW1 ([facility]) IIV3. This is one of two codes replacing CVX 15, which is being retired. 04/15/2020 11:52:00 AM EDT completed eCW1 ([facility]) INFLUENZA VIRUS VACCINE QUADRIVAL [id number](6 MOS AND UP)/PF 04/05/2020 12:00:00 AM EDT completed [facility] Medications Medication Brand Name Start Date Product Form Dose Route Admi nistrative Instructions Pharmacy Instructions Status Indications Reaction Description Data Source(s) 240 mcg/0.7 mL 05/03/2021 12:00:00 AM EST syringe 0 DIRECTED DIRECTED SOLD: 05/03/2021 [facility] Clonazepam 0.5 MG Oral Tablet [Klonopin] KlonoPIN 0.5 MG Klo noPIN 0.5 MG 03/26/2021 12:00:00 AM EDT 1.0 {tablet} active KlonoPIN 0.5 MG eCW1 ([facility]) Clonazepam 0.5 MG Oral Tablet [Klonopin] KlonoPIN 0.5 MG Klo noPIN 0.5 MG 03/26/2021 12:00:00 AM EDT 1.0 {tablet} active KlonoPIN 0.5 MG eCW1 ([facility]) Clonazepam 0.5 MG Oral Tablet [Klonopin] KlonoPIN 0.5 MG Klo noPIN 0.5 MG 03/26/2021 12:00:00 AM EDT 1.0 {tablet} active KlonoPIN 0.5 MG eCW1 ([facility]) Clonazepam 0.5 MG Oral Tablet [Klonopin] KlonoPIN 0.5 MG Klo noPIN 0.5 MG 03/26/2021 12:00:00 AM EDT 1.0 {tablet} active KlonoPIN 0.5 MG eCW1 ([facility]) Clonazepam 0.5 MG Oral Tablet [Klonopin] KlonoPIN 0.5 MG Klo noPIN 0.5 MG 02/25/2021 12:00:00 AM EDT 1.0 {tablet} active KlonoPIN 0.5 MG eCW1 ([facility]) Clonazepam 0.5 MG Oral Tablet [Klonopin] KlonoPIN 0.5 MG Klo noPIN 0.5 MG 02/25/2021 12:00:00 AM EDT 1.0 {tablet} active KlonoPIN 0.5 MG eCW1 ([facility]) Clonazepam 0.5 MG Oral Tablet [Klonopin] KlonoPIN 0.5 MG Klo noPIN 0.5 MG 02/25/2021 12:00:00 AM EDT 1.0 {tablet} active KlonoPIN 0.5 MG eCW1 ([facility]) Clonazepam 0.5 MG Oral Tablet [Klonopin] KlonoPIN 0.5 MG Klo noPIN 0.5 MG 02/25/2021 12:00:00 AM EDT 1.0 {tablet} active KlonoPIN 0.5 MG eCW1 ([facility]) Clonazepam 0.5 MG Oral Tablet [Klonopin] KlonoPIN 0.5 MG Klo noPIN 0.5 MG 02/25/2021 12:00:00 AM EDT 1.0 {tablet} active KlonoPIN 0.5 MG eCW1 ([facility]) Clonazepam 0.5 MG Oral Tablet [Klonopin] KlonoPIN 0.5 MG Klo noPIN 0.5 MG 02/25/2021 12:00:00 AM EDT 1.0 {tablet} active KlonoPIN 0.5 MG eCW1 ([facility]) Clonazepam 0.5 MG Oral Tablet [Klonopin] KlonoPIN 0.5 MG Klo noPIN 0.5 MG 02/06/2021 12:00:00 AM EDT 1.0 {tablet} active KlonoPIN 0.5 MG eCW1 ([facility]) Clonazepam 0.5 MG Oral Tablet [Klonopin] KlonoPIN 0.5 MG Klo noPIN 0.5 MG 02/06/2021 12:00:00 AM EDT 1.0 {tablet} active KlonoPIN 0.5 MG eCW1 ([facility]) ferrous gluconate 324 MG Oral Tablet Ferrous Gluconate 324 (38 Fe) MG Ferrous Gluconate 324 (38 Fe) MG 02/03/2021 12:00:00 AM EDT active Ferrous Gluconate 324 (38 Fe) MG eCW1 ([facility]) ferrous gluconate 324 MG Oral Tablet Ferrous Gluconate 324 (38 Fe) MG Ferrous Gluconate 324 (38 Fe) MG 02/03/2021 12:00:00 AM EDT active Ferrous Gluconate 324 (38 Fe) MG eCW1 ([facility]) Ferrous Gluconate UNK 02/03/2021 12:00:00 AM EDT active Ferrous Gluconate eCW1 ([facility]) ferrous gluconate 324 MG Oral Tablet Ferrous Gluconate 324 (38 Fe) MG Ferrous Gluconate 324 (38 Fe) MG 02/03/2021 12:00:00 AM EDT active Ferrous Gluconate 324 (38 Fe) MG eCW1 ([facility]) ferrous gluconate 324 MG Oral Tablet Ferrous Gluconate 324 (38 Fe) MG Ferrous Gluconate 324 (38 Fe) MG 02/03/2021 12:00:00 AM EDT active Ferrous Gluconate 324 (38 Fe) MG eCW1 ([facility]) ferrous gluconate 324 MG Oral Tablet Ferrous Gluconate 324 (38 Fe) MG Ferrous Gluconate 324 (38 Fe) MG 02/03/2021 12:00:00 AM EDT active Ferrous Gluconate 324 (38 Fe) MG eCW1 ([facility]) ferrous gluconate 324 MG Oral Tablet Ferrous Gluconate 324 (38 Fe) MG Ferrous Gluconate 324 (38 Fe) MG 02/03/2021 12:00:00 AM EDT active Ferrous Gluconate 324 (38 Fe) MG eCW1 ([facility]) ferrous gluconate 324 MG Oral Tablet Ferrous Gluconate 324 (38 Fe) MG Ferrous Gluconate 324 (38 Fe) MG 02/03/2021 12:00:00 AM EDT active Ferrous Gluconate 324 (38 Fe) MG eCW1 ([facility]) ferrous gluconate 324 MG Oral Tablet Ferrous Gluconate 324 (38 Fe) MG Ferrous Gluconate 324 (38 Fe) MG 02/03/2021 12:00:00 AM EDT active Ferrous Gluconate 324 (38 Fe) MG eCW1 ([facility]) ferrous gluconate 324 MG Oral Tablet Ferrous Gluconate 324 (38 Fe) MG Ferrous Gluconate 324 (38 Fe) MG 02/03/2021 12:00:00 AM EDT active Ferrous Gluconate 324 (38 Fe) MG eCW1 ([facility]) ferrous gluconate 324 MG Oral Tablet Ferrous Gluconate 324 (38 Fe) MG Ferrous Gluconate 324 (38 Fe) MG 02/03/2021 12:00:00 AM EDT active Ferrous Gluconate 324 (38 Fe) MG eCW1 ([facility]) ferrous gluconate 324 MG Oral Tablet Ferrous Gluconate 324 (38 Fe) MG Ferrous Gluconate 324 (38 Fe) MG 02/03/2021 12:00:00 AM EDT active Ferrous Gluconate 324 (38 Fe) MG eCW1 ([facility]) Ferrous Gluconate UNK 02/03/2021 12:00:00 AM EDT active Ferrous Gluconate eCW1 ([facility]) ferrous gluconate 324 MG Oral Tablet Ferrous Gluconate 324 (38 Fe) MG Ferrous Gluconate 324 (38 Fe) MG 02/03/2021 12:00:00 AM EDT active Ferrous Gluconate 324 (38 Fe) MG eCW1 ([facility]) ferrous gluconate 324 MG Oral Tablet Ferrous Gluconate 324 (38 Fe) MG Ferrous Gluconate 324 (38 Fe) MG 02/03/2021 12:00:00 AM EDT active Ferrous Gluconate 324 (38 Fe) MG eCW1 ([facility]) ferrous gluconate 324 MG Oral Tablet Ferrous Gluconate 324 (38 Fe) MG Ferrous Gluconate 324 (38 Fe) MG 02/03/2021 12:00:00 AM EDT active Ferrous Gluconate 324 (38 Fe) MG eCW1 ([facility]) ferrous gluconate 324 MG Oral Tablet Ferrous Gluconate 324 (38 Fe) MG Ferrous Gluconate 324 (38 Fe) MG 02/03/2021 12:00:00 AM EDT active Ferrous Gluconate 324 (38 Fe) MG eCW1 ([facility]) Albuterol Sulfate HFA 108 (90 Base) MCG/ACT Albuterol Sulfate HFA 108 (90 Base) MCG/ACT 01/28/2021 12:00:00 AM EDT 2.0 {puff_as_needed} active Albuterol Sulfate HFA 108 (90 Base) MCG/ACT eCW1 ([facility]) 60 ACTUAT Fluticasone propionate 0.25 MG /ACTUAT / salmeterol 0.05 MG/ACTUAT Dry Powder Inhaler [Advair] Advair Diskus 250-50 MCG/DOSE Advair Diskus 250-50 MCG/DOSE 01/28/2021 12:00:00 AM EDT 1.0 {puff} activ e Advair Diskus 250-50 MCG/DOSE eCW1 ([facility]) 60 ACTUAT Fluticasone propionate 0.25 MG /ACTUAT / salmeterol 0.05 MG/ACTUAT Dry Powder Inhaler [Advair] Advair Diskus 250-50 MCG/DOSE Advair Diskus 250-50 MCG/DOSE 01/28/2021 12:00:00 AM EDT 1.0 {puff} activ e Advair Diskus 250-50 MCG/DOSE eCW1 ([facility]) Albuterol Sulfate HFA 108 (90 Base) MCG/ACT Albuterol Sulfate HFA 108 (90 Base) MCG/ACT 01/28/2021 12:00:00 AM EDT 2.0 {puff_as_needed} active Albuterol Sulfate HFA 108 (90 Base) MCG/ACT eCW1 ([facility]) Albuterol Sulfate HFA 108 (90 Base) MCG/ACT Albuterol Sulfate HFA 108 (90 Base) MCG/ACT 01/28/2021 12:00:00 AM EDT 2.0 {puff_as_needed} active Albuterol Sulfate HFA 108 (90 Base) MCG/ACT eCW1 ([facility]) Albuterol Sulfate HFA 108 (90 Base) MCG/ACT Albuterol Sulfate HFA 108 (90 Base) MCG/ACT 01/28/2021 12:00:00 AM EDT 2.0 {puff_as_needed} active Albuterol Sulfate HFA 108 (90 Base) MCG/ACT eCW1 ([facility]) Albuterol Sulfate HFA 108 (90 Base) MCG/ACT Albuterol Sulfate HFA 108 (90 Base) MCG/ACT 01/28/2021 12:00:00 AM EDT 2.0 {puff_as_needed} active Albuterol Sulfate HFA 108 (90 Base) MCG/ACT eCW1 ([facility]) 60 ACTUAT Fluticasone propionate 0.25 MG /ACTUAT / salmeterol 0.05 MG/ACTUAT Dry Powder Inhaler [Advair] Advair Diskus 250-50 MCG/DOSE Advair Diskus 250-50 MCG/DOSE 01/28/2021 12:00:00 AM EDT 1.0 {puff} activ e Advair Diskus 250-50 MCG/DOSE eCW1 ([facility]) 60 ACTUAT Fluticasone propionate 0.25 MG /ACTUAT / salmeterol 0.05 MG/ACTUAT Dry Powder Inhaler [Advair] Advair Diskus 250-50 MCG/DOSE Advair Diskus 250-50 MCG/DOSE 01/28/2021 12:00:00 AM EDT 1.0 {puff} activ e Advair Diskus 250-50 MCG/DOSE eCW1 ([facility]) 60 ACTUAT Fluticasone propionate 0.25 MG /ACTUAT / salmeterol 0.05 MG/ACTUAT Dry Powder Inhaler [Advair] Advair Diskus 250-50 MCG/DOSE Advair Diskus 250-50 MCG/DOSE 01/28/2021 12:00:00 AM EDT 1.0 {puff} activ e Advair Diskus 250-50 MCG/DOSE eCW1 ([facility]) 60 ACTUAT Fluticasone propionate 0.25 MG /ACTUAT / salmeterol 0.05 MG/ACTUAT Dry Powder Inhaler [Advair] Advair Diskus 250-50 MCG/DOSE Advair Diskus 250-50 MCG/DOSE 01/28/2021 12:00:00 AM EDT 1.0 {puff} activ e Advair Diskus 250-50 MCG/DOSE eCW1 ([facility]) Albuterol Sulfate HFA 108 (90 Base) MCG/ACT Albuterol Sulfate HFA 108 (90 Base) MCG/ACT 01/28/2021 12:00:00 AM EDT 2.0 {puff_as_needed} active Albuterol Sulfate HFA 108 (90 Base) MCG/ACT eCW1 ([facility]) Albuterol Sulfate HFA 108 (90 Base) MCG/ACT Albuterol Sulfate HFA 108 (90 Base) MCG/ACT 01/28/2021 12:00:00 AM EDT 2.0 {puff_as_needed} active Albuterol Sulfate HFA 108 (90 Base) MCG/ACT eCW1 ([facility]) 60 ACTUAT Fluticasone propionate 0.25 MG /ACTUAT / salmeterol 0.05 MG/ACTUAT Dry Powder Inhaler [Advair] Advair Diskus 250-50 MCG/DOSE Advair Diskus 250-50 MCG/DOSE 01/28/2021 12:00:00 AM EDT 1.0 {puff} activ e Advair Diskus 250-50 MCG/DOSE eCW1 ([facility]) Albuterol Sulfate HFA 108 (90 Base) MCG/ACT Albuterol Sulfate HFA 108 (90 Base) MCG/ACT 01/28/2021 12:00:00 AM EDT 2.0 {puff_as_needed} active Albuterol Sulfate HFA 108 (90 Base) MCG/ACT eCW1 ([facility]) 60 ACTUAT Fluticasone propionate 0.25 MG /ACTUAT / salmeterol 0.05 MG/ACTUAT Dry Powder Inhaler [Advair] Advair Diskus 250-50 MCG/DOSE Advair Diskus 250-50 MCG/DOSE 01/28/2021 12:00:00 AM EDT 1.0 {puff} activ e Advair Diskus 250-50 MCG/DOSE eCW1 ([facility]) Albuterol Sulfate HFA 108 (90 Base) MCG/ACT Albuterol Sulfate HFA 108 (90 Base) MCG/ACT 01/28/2021 12:00:00 AM EDT 2.0 {puff_as_needed} active Albuterol Sulfate HFA 108 (90 Base) MCG/ACT eCW1 ([facility]) Albuterol Sulfate HFA 108 (90 Base) MCG/ACT Albuterol Sulfate HFA 108 (90 Base) MCG/ACT 01/28/2021 12:00:00 AM EDT 2.0 {puff_as_needed} active Albuterol Sulfate HFA 108 (90 Base) MCG/ACT eCW1 ([facility]) Albuterol Sulfate HFA 108 (90 Base) MCG/ACT Albuterol Sulfate HFA 108 (90 Base) MCG/ACT 01/28/2021 12:00:00 AM EDT 2.0 {puff_as_needed} active Albuterol Sulfate HFA 108 (90 Base) MCG/ACT eCW1 ([facility]) 60 ACTUAT Fluticasone propionate 0.25 MG /ACTUAT / salmeterol 0.05 MG/ACTUAT Dry Powder Inhaler [Advair] Advair Diskus 250-50 MCG/DOSE Advair Diskus 250-50 MCG/DOSE 01/28/2021 12:00:00 AM EDT 1.0 {puff} activ e Advair Diskus 250-50 MCG/DOSE eCW1 ([facility]) Albuterol Sulfate HFA 108 (90 Base) MCG/ACT Albuterol Sulfate HFA 108 (90 Base) MCG/ACT 01/28/2021 12:00:00 AM EDT 2.0 {puff_as_needed} active Albuterol Sulfate HFA 108 (90 Base) MCG/ACT eCW1 ([facility]) 60 ACTUAT Fluticasone propionate 0.25 MG /ACTUAT / salmeterol 0.05 MG/ACTUAT Dry Powder Inhaler [Advair] Advair Diskus 250-50 MCG/DOSE Advair Diskus 250-50 MCG/DOSE 01/28/2021 12:00:00 AM EDT 1.0 {puff} activ e Advair Diskus 250-50 MCG/DOSE eCW1 ([facility]) 60 ACTUAT Fluticasone propionate 0.25 MG /ACTUAT / salmeterol 0.05 MG/ACTUAT Dry Powder Inhaler [Advair] Advair Diskus 250-50 MCG/DOSE Advair Diskus 250-50 MCG/DOSE 01/28/2021 12:00:00 AM EDT 1.0 {puff} activ e Advair Diskus 250-50 MCG/DOSE eCW1 ([facility]) Albuterol Sulfate HFA 108 (90 Base) MCG/ACT Albuterol Sulfate HFA 108 (90 Base) MCG/ACT 01/28/2021 12:00:00 AM EDT 2.0 {puff_as_needed} active Albuterol Sulfate HFA 108 (90 Base) MCG/ACT eCW1 ([facility]) Albuterol Sulfate HFA 108 (90 Base) MCG/ACT Albuterol Sulfate HFA 108 (90 Base) MCG/ACT 01/28/2021 12:00:00 AM EDT 2.0 {puff_as_needed} active Albuterol Sulfate HFA 108 (90 Base) MCG/ACT eCW1 ([facility]) 60 ACTUAT Fluticasone propionate 0.25 MG /ACTUAT / salmeterol 0.05 MG/ACTUAT Dry Powder Inhaler [Advair] Advair Diskus 250-50 MCG/DOSE Advair Diskus 250-50 MCG/DOSE 01/28/2021 12:00:00 AM EDT 1.0 {puff} activ e Advair Diskus 250-50 MCG/DOSE eCW1 ([facility]) 60 ACTUAT Fluticasone propionate 0.25 MG /ACTUAT / salmeterol 0.05 MG/ACTUAT Dry Powder Inhaler [Advair] Advair Diskus 250-50 MCG/DOSE Advair Diskus 250-50 MCG/DOSE 01/28/2021 12:00:00 AM EDT 1.0 {puff} activ e Advair Diskus 250-50 MCG/DOSE eCW1 ([facility]) Albuterol Sulfate HFA 108 (90 Base) MCG/ACT Albuterol Sulfate HFA 108 (90 Base) MCG/ACT 01/28/2021 12:00:00 AM EDT 2.0 {puff_as_needed} active Albuterol Sulfate HFA 108 (90 Base) MCG/ACT eCW1 ([facility]) 60 ACTUAT Fluticasone propionate 0.25 MG /ACTUAT / salmeterol 0.05 MG/ACTUAT Dry Powder Inhaler [Advair] Advair Diskus 250-50 MCG/DOSE Advair Diskus 250-50 MCG/DOSE 01/28/2021 12:00:00 AM EDT 1.0 {puff} activ e Advair Diskus 250-50 MCG/DOSE eCW1 ([facility]) Albuterol Sulfate HFA 108 (90 Base) MCG/ACT Albuterol Sulfate HFA 108 (90 Base) MCG/ACT 01/28/2021 12:00:00 AM EDT 2.0 {puff_as_needed} active Albuterol Sulfate HFA 108 (90 Base) MCG/ACT eCW1 ([facility]) 60 ACTUAT Fluticasone propionate 0.25 MG /ACTUAT / salmeterol 0.05 MG/ACTUAT Dry Powder Inhaler [Advair] Advair Diskus 250-50 MCG/DOSE Advair Diskus 250-50 MCG/DOSE 01/28/2021 12:00:00 AM EDT 1.0 {puff} activ e Advair Diskus 250-50 MCG/DOSE eCW1 ([facility]) Albuterol Sulfate HFA 108 (90 Base) MCG/ACT Albuterol Sulfate HFA 108 (90 Base) MCG/ACT 01/28/2021 12:00:00 AM EDT 2.0 {puff_as_needed} active Albuterol Sulfate HFA 108 (90 Base) MCG/ACT eCW1 ([facility]) 60 ACTUAT Fluticasone propionate 0.25 MG /ACTUAT / salmeterol 0.05 MG/ACTUAT Dry Powder Inhaler [Advair] Advair Diskus 250-50 MCG/DOSE Advair Diskus 250-50 MCG/DOSE 01/28/2021 12:00:00 AM EDT 1.0 {puff} activ e Advair Diskus 250-50 MCG/DOSE eCW1 ([facility]) 60 ACTUAT Fluticasone propionate 0.25 MG /ACTUAT / salmeterol 0.05 MG/ACTUAT Dry Powder Inhaler [Advair] Advair Diskus 250-50 MCG/DOSE Advair Diskus 250-50 MCG/DOSE 01/28/2021 12:00:00 AM EDT 1.0 {puff} activ e Advair Diskus 250-50 MCG/DOSE eCW1 ([facility]) POLYETHYLENE GLYCOL 3350 142 MG/ML Oral Solution [Miralax] M iralax 01/23/2021 12:00:00 AM EDT active M EDENT ([facility], ) magnesium citrate 58.2 MG/ML Oral Solution Magnesium Citrate 01/23/2021 12:00:00 AM EDT active MEDENT ([facility], ) tramadol hydrochloride 50 MG Oral Tablet traMADol HCl 50 MG traMADol HCl 50 MG 03/28/2020 12:00:00 AM EDT active traMADol HCl 50 MG eCW1 ([facility]) tramadol hydrochloride 50 MG Oral Tablet traMADol HCl 50 MG traMADol HCl 50 MG 03/28/2020 12:00:00 AM EDT active traMADol HCl 50 MG eCW1 ([facility]) tramadol hydrochloride 50 MG Oral Tablet Tramadol HCl 50 MG Tramadol HCl 50 MG 03/28/2020 12:00:00 AM EDT active Tramadol HCl 50 MG eCW1 ([facility]) tramadol hydrochloride 50 MG Oral Tablet Tramadol HCl 50 MG Tramadol HCl 50 MG 03/28/2020 12:00:00 AM EDT active Tramadol HCl 50 MG eCW1 ([facility]) tramadol hydrochloride 50 MG Oral Tablet Tramadol HCl 50 MG Tramadol HCl 50 MG 03/28/2020 12:00:00 AM EDT active Tramadol HCl 50 MG eCW1 ([facility]) tramadol hydrochloride 50 MG Oral Tablet Tramadol HCl 50 MG Tramadol HCl 50 MG 03/28/2020 12:00:00 AM EDT active Tramadol HCl 50 MG eCW1 ([facility]) tramadol hydrochloride 50 MG Oral Tablet Tramadol HCl 50 MG Tramadol HCl 50 MG 03/28/2020 12:00:00 AM EDT active Tramadol HCl 50 MG eCW1 ([facility]) tramadol hydrochloride 50 MG Oral Tablet Tramadol HCl 50 MG Tramadol HCl 50 MG 03/28/2020 12:00:00 AM EDT active Tramadol HCl 50 MG eCW1 ([facility]) tramadol hydrochloride 50 MG Oral Tablet traMADol HCl 50 MG traMADol HCl 50 MG 03/28/2020 12:00:00 AM EDT active traMADol HCl 50 MG eCW1 ([facility]) tramadol hydrochloride 50 MG Oral Tablet Tramadol HCl 50 MG Tramadol HCl 50 MG 03/28/2020 12:00:00 AM EDT active Tramadol HCl 50 MG eCW1 ([facility]) tramadol hydrochloride 50 MG Oral Tablet Tramadol HCl 50 MG Tramadol HCl 50 MG 03/28/2020 12:00:00 AM EDT active Tramadol HCl 50 MG eCW1 ([facility]) tramadol hydrochloride 50 MG Oral Tablet traMADol HCl 50 MG traMADol HCl 50 MG 03/28/2020 12:00:00 AM EDT active traMADol HCl 50 MG eCW1 ([facility]) tramadol hydrochloride 50 MG Oral Tablet Tramadol HCl 50 MG Tramadol HCl 50 MG 03/28/2020 12:00:00 AM EDT active Tramadol HCl 50 MG eCW1 ([facility]) tramadol hydrochloride 50 MG Oral Tablet traMADol HCl 50 MG traMADol HCl 50 MG 03/28/2020 12:00:00 AM EDT active eCW1 ([facility]) tramadol hydrochloride 50 MG Oral Tablet Tramadol HCl 50 MG Tramadol HCl 50 MG 03/28/2020 12:00:00 AM EDT active Tramadol HCl 50 MG eCW1 ([facility]) tramadol hydrochloride 50 MG Oral Tablet Tramadol HCl 50 MG Tramadol HCl 50 MG 03/28/2020 12:00:00 AM EDT active Tramadol HCl 50 MG eCW1 ([facility]) tramadol hydrochloride 50 MG Oral Tablet traMADol HCl 50 MG traMADol HCl 50 MG 03/28/2020 12:00:00 AM EDT active traMADol HCl 50 MG eCW1 ([facility]) tramadol hydrochloride 50 MG Oral Tablet Tramadol HCl 50 MG Tramadol HCl 50 MG 03/28/2020 12:00:00 AM EDT active Tramadol HCl 50 MG eCW1 ([facility]) tramadol hydrochloride 50 MG Oral Tablet Tramadol HCl 50 MG Tramadol HCl 50 MG 03/28/2020 12:00:00 AM EDT active Tramadol HCl 50 MG eCW1 ([facility]) tramadol hydrochloride 50 MG Oral Tablet Tramadol HCl 50 MG Tramadol HCl 50 MG 03/28/2020 12:00:00 AM EDT active Tramadol HCl 50 MG eCW1 ([facility]) tramadol hydrochloride 50 MG Oral Tablet Tramadol HCl 50 MG Tramadol HCl 50 MG 03/28/2020 12:00:00 AM EDT active Tramadol HCl 50 MG eCW1 ([facility]) tramadol hydrochloride 50 MG Oral Tablet Tramadol HCl 50 MG Tramadol HCl 50 MG 03/28/2020 12:00:00 AM EDT active Tramadol HCl 50 MG eCW1 ([facility]) tramadol hydrochloride 50 MG Oral Tablet traMADol HCl 50 MG traMADol HCl 50 MG 03/28/2020 12:00:00 AM EDT active traMADol HCl 50 MG eCW1 ([facility]) tramadol hydrochloride 50 MG Oral Tablet Tramadol HCl 50 MG Tramadol HCl 50 MG 03/28/2020 12:00:00 AM EDT active Tramadol HCl 50 MG eCW1 ([facility]) tramadol hydrochloride 50 MG Oral Tablet traMADol HCl 50 MG traMADol HCl 50 MG 03/28/2020 12:00:00 AM EDT active traMADol HCl 50 MG eCW1 ([facility]) tramadol hydrochloride 50 MG Oral Tablet Tramadol HCl 50 MG Tramadol HCl 50 MG 03/28/2020 12:00:00 AM EDT active Tramadol HCl 50 MG eCW1 ([facility]) tramadol hydrochloride 50 MG Oral Tablet Tramadol HCl 50 MG Tramadol HCl 50 MG 03/28/2020 12:00:00 AM EDT active Tramadol HCl 50 MG eCW1 ([facility]) Insurance Providers Payer name Policy type / Coverage type Policy ID Covered constitution party ID Covered constitution party's relationship to trejo Policy Trejo Plan Information Medicaid Medicaid [id number] Self [id number] Medicaid Medicaid [id number] Self [id number] [facility] [employer] PLS Commercial [id number] Self [id number] [facility] [employer]/Ess PLS Commercial [id number] Self [id number] [facility] [employer]/Ess PLS Commercial [id number] Self [id number] [facility] Balta/Ess PLS Commercial [id number] Self [id number] [facility] [employer] MCDHMO [id number] SP [id number] [facility] [employer] MCDHMO [id number] SP [id number] MEDICAID [id number] SP [id number] ANSI-Not a Secondary Insurance [id number] ANSI-Not a Secondary Insurance [id number] ANSI-Medicaid [id number] ANSI-Not a Secondary Insurance [id number] ANSI-Medicaid [id number] ANSI-Medicaid [id number] ANSI-Not a Secondary Insurance [id number] ANSI-Medicaid [id number] ANSI-Not a Secondary Insurance [id number] ANSI-Not a Secondary Insurance [id number] ANSI-Medicaid [id number] ANSI-Not a Secondary Insurance [id number] ANSI-Medicaid [id number] ANSI-Medicaid [id number] ANSI-Not a Secondary Insurance [id number] ANSI-Not a Secondary Insurance [id number] ANSI-Medicaid [id number] ANSI-Not a Secondary Insurance [id number] ANSI-Medicaid [id number] ANSI-Medicaid [id number] ANSI-Not a Secondary Insurance [id number] ANSI-Medicaid [id number] ANSI-Not a Secondary Insurance [id number] [place] [id number] Self [id number] ANSI-Not a Secondary Insurance [id number] ANSI-Medicaid [id number] ANSI-Medicaid [id number] ANSI-Not a Secondary Insurance [id number] ANSI-Not a Secondary Insurance [id number] ANSI-Medicaid [id number] ANSI-Medicaid [id number] ANSI-Not a Secondary Insurance [id number] Medicaid Medigap Part B [id number] 37.0 Self [id number] Medicaid Medigap Part B [id number] 37.0 Self [id number] Medicaid Medigap Part B [id number] 37.0 Self [id number] Medicaid Medicaid [id number] Self [id number] Medicaid Medigap Part B [id number] 37.0 Self [id number] Medicaid Medicaid [id number] Self [id number] Medicaid Medigap Part B [id number] 37.0 Self [id number] Medicaid Medicaid [id number] Self [id number] Medicaid Medigap Part B [id number] 37.0 Self [id number] Medicaid Medicaid [id number] Self [id number] [place] Medigap Part B [id number] Self [id number] [facility] Health Maintenance Organization (HMO) [id number] Self [id number] [facility] [id number] SP [id number] Medicaid Medicaid 1 1 [id number] Self 1 1 Medicaid Medigap Part B 1 1 [id number] 37.0 Self 1 1 SELF PAY ONLY [id number] SP [id number] [facility] [employer] [facility] [id number] SP [id number] [place] [id number] SP [id number] MEDICARE [id number] SP [id number] [place] [id number] SP [id number] MEDICAID M [id number] S [id number] MEDICAID [id number] SP [id number] ANSI-Not a Secondary Insurance [id number] ANSI-Medicaid [id number] ANSI-Medicaid [id number] Problems, Conditions, and Diagnoses Code Display Name Description Problem Type Effective Dates Data Source(s) K57.90 [id number] Diverticulosis Problem 02/01/2021 12:00:00 A M EDT eCW1 ([facility]) S22.000A 804980679 Compression fracture of body of thoracic vertebra Problem 02/01/2021 12:00:00 AM EDT eCW1 ([facility]) Surgeries/Procedures Procedure Description Date Indications Data Source(s) RADEX SPINE THORACIC 2 VIEWS 04/26/2020 12:00:00 AM ES T [facility]ENT ([facility]) RADEX SPINE THORACIC 2 VIEWS 03/18/2020 12:00:00 AM ED T [facility] ([facility]) Results ID Date Data Source [id number] 08/05/2020 09:00:00 AM EST [facility] Name Value Range Interpretation Code Description Data Haritha rce(s) Supporting Document(s) SARS coronavirus 2 RNA Not Detected [facility] [place] This lab was ordered by [facility] and reported by [facility]. ID Date Data Source [id number] 07/29/2020 06:33:00 AM EST [facility] Name Value Range Interpretation Code Description Data Haritha rce(s) Supporting Document(s) SARS coronavirus 2 RNA Not Detected [facility] [place] This lab was ordered by [facility] and reported by [facility]. ID Date Data Source [id number] 07/22/2020 08:00:00 AM EST [facility] Name Value Range Interpretation Code Description Data Haritha rce(s) Supporting Document(s) SARS coronavirus 2 RNA Not Detected [facility] This lab was ordered by [facility] and reported by [facility]. ID Date Data Source [id number] 07/15/2020 08:00:00 AM EST [facility] Name Value Range Interpretation Code Description Data Haritha rce(s) Supporting Document(s) SARS coronavirus 2 RNA Not Detected [facility] This lab was ordered by [facility] and reported by [facility]. ID Date Data Source [id number] 07/08/2020 11:00:00 AM EST [facility] Name Value Range Interpretation Code Description Data Haritha rce(s) Supporting Document(s) SARS coronavirus 2 RNA Not Detected [facility] This lab was ordered by [facility] and reported by [facility]. ID Date Data Source [id number] 07/01/2020 06:00:00 AM EST [facility] Name Value Range Interpretation Code Description Data Haritha rce(s) Supporting Document(s) SARS coronavirus 2 RNA Not Detected [facility] This lab was ordered by [facility] and reported by [facility]. ID Date Data Source [id number] 06/24/2020 09:00:00 AM EST [facility] Name Value Range Interpretation Code Description Data Haritha rce(s) Supporting Document(s) SARS coronavirus 2 RNA Not Detected [facility] This lab was ordered by [facility] and reported by [facility]. ID Date Data Source [id number] 06/17/2020 07:35:00 AM EST [facility] Name Value Range Interpretation Code Description Data Haritha rce(s) Supporting Document(s) SARS coronavirus 2 RNA [facility] This lab was ordered by [facility] and reported by [facility]. ID Date Data Source [id number] 06/10/2020 09:00:00 AM EST [facility] Name Value Range Interpretation Code Description Data Haritha rce(s) Supporting Document(s) SARS coronavirus 2 RNA [facility] This lab was ordered by [facility] and reported by [facility]. ID Date Data Source [id number] 06/05/2020 11:53:00 AM EST [facility] Name Value Range Interpretation Code Description Data Haritha rce(s) Supporting Document(s) SARS coronavirus 2 RNA [facility] This lab was ordered by [facility] and reported by [facility]. ID Date Data Source [id number] 06/05/2020 12:00:00 AM EST [facility] Name Value Range Interpretation Code Description Data Haritha rce(s) Supporting Document(s) [facility] ordered by [facility] and reported by [facility]. ID Date Data Source [id number] 05/31/2020 02:48:00 PM EST [facility] Name Value Range Interpretation Code Description Data Haritha rce(s) Supporting Document(s) SARS coronavirus 2 RNA [facility] This lab was ordered by [facility] and reported by [facility]. Procedure Social History Code Duration Value Status Description Data Source(s ) Smoking 02/01/2021 12:00:00 AM EDT Current Smoker completed Curre nt Smoker eCW1 ([facility]) Smoking 02/01/2021 12:00:00 AM EDT Current Smoker completed Curre nt Smoker eCW1 ([facility]) Smoking 02/01/2021 12:00:00 AM EDT Current Smoker completed Curre nt Smoker eCW1 ([facility]) Smoking 02/01/2021 12:00:00 AM EDT Current Smoker completed Curre nt Smoker eCW1 ([facility]) Smoking 02/01/2021 12:00:00 AM EDT Current Smoker completed Curre nt Smoker eCW1 ([facility]) Smoking 02/01/2021 12:00:00 AM EDT Current Smoker completed Curre nt Smoker eCW1 ([facility]) Smoking 02/01/2021 12:00:00 AM EDT Current Smoker completed Curre nt Smoker eCW1 ([facility]) Smoking 02/01/2021 12:00:00 AM EDT Current Smoker completed Curre nt Smoker eCW1 ([facility]) Smoking 02/01/2021 12:00:00 AM EDT Current Smoker completed Curre nt Smoker eCW1 ([facility]) Smoking 02/01/2021 12:00:00 AM EDT Current Smoker completed Curre nt Smoker eCW1 ([facility]) Smoking 02/01/2021 12:00:00 AM EDT Current Smoker completed Curre nt Smoker eCW1 ([facility]) Smoking 02/01/2021 12:00:00 AM EDT Current Smoker completed Curre nt Smoker eCW1 ([facility]) Smoking 02/01/2021 12:00:00 AM EDT Current Smoker completed Curre nt Smoker eCW1 ([facility]) Smoking 02/01/2021 12:00:00 AM EDT Current Smoker completed Curre nt Smoker eCW1 ([facility]) Smoking 02/01/2021 12:00:00 AM EDT Current Smoker completed Curre nt Smoker eCW1 ([facility]) Smoking 02/01/2021 12:00:00 AM EDT Current Smoker completed Curre nt Smoker eCW1 ([facility]) Smoking 02/01/2021 12:00:00 AM EDT Current Smoker completed Curre nt Smoker eCW1 ([facility]) Smoking 07/30/2020 12:00:00 AM EST Current Smoker completed Curre nt Smoker eCW1 ([facility]) Smoking 07/30/2020 12:00:00 AM EST Current Smoker completed Curre nt Smoker eCW1 ([facility]) Smoking 07/30/2020 12:00:00 AM EST Current Smoker completed Curre nt Smoker eCW1 ([facility]) Smoking 07/30/2020 12:00:00 AM EST Current Smoker completed Curre nt Smoker eCW1 ([facility]) Smoking 07/30/2020 12:00:00 AM EST Current Smoker completed Curre nt Smoker eCW1 ([facility]) Smoking 07/30/2020 12:00:00 AM EST Current Smoker completed Curre nt Smoker eCW1 ([facility]) Smoking 07/30/2020 12:00:00 AM EST Current Smoker completed Curre nt Smoker eCW1 ([facility]) Smoking 07/30/2020 12:00:00 AM EST Current Smoker completed Curre nt Smoker eCW1 ([facility]) Smoking 07/30/2020 12:00:00 AM EST Current Smoker completed Curre nt Smoker eCW1 ([facility]) Smoking 07/30/2020 12:00:00 AM EST Current Smoker completed Curre nt Smoker eCW1 ([facility]) Smoking 07/30/2020 12:00:00 AM EST Current Smoker completed Curre nt Smoker eCW1 ([facility]) Smoking 07/30/2020 12:00:00 AM EST Current Smoker completed Curre nt Smoker eCW1 ([facility]) Smoking 07/30/2020 12:00:00 AM EST Current Smoker completed Curre nt Smoker eCW1 ([facility]) Smoking 07/30/2020 12:00:00 AM EST Current Smoker completed Curre nt Smoker eCW1 ([facility]) Smoking 07/30/2020 12:00:00 AM EST Current Smoker completed Curre nt Smoker eCW1 ([facility]) Vital Signs ID Date Data Source UNK Name Value Range Interpretation Code Description Data Source(s) Body weight 179.2 [lb_av] 179.2 [lb_av] [facility] Body weight 81.28 kg 81.28 kg eCW1 ([facility]) Body height 63 [in_i] 63 [in_i] eCW1 ([facility]) Body mass index (BMI) [Ratio] 31.74 kg/m2 31.74 kg/m2 eCW1 ([facility]) Heart rate 74 /min 74 /min eCW1 ([facility]) Respiratory rate 18 /min 18 /min eCW1 ([facility]) Body temperature 98 [degF] 98 [degF] eCW1 ([facility]) Systolic blood pressure 140 mm[Hg] 140 mm[Hg] e CW1 ([facility]) Diastolic blood pressure 76 mm[Hg] 76 mm[Hg] eCW1 ([facility]) Body weight 80.741 kg 80.741 kg MEDENT ([facility], ) Systolic blood pressure 130 mm[Hg] 130 mm[Hg] M EDENT ([facility], ) Diastolic blood pressure 70 mm[Hg] 70 mm[Hg] MEDENT ([facility], ) Body height 67 [in_i] 67 [in_i] MEDENT ([facility], ) 5'7" Body weight 178.00 [lb_av] 178.00 [lb_av] MEDEN T ([facility], ) Body mass index (BMI) [Ratio] 27.9 kg/m2 27.9 k g/m2 [facility] ([facility], ) [place] body weight 135 [lb_av] 135 [lb_av] MEDEN T ([facility], ) Body surface area Derived from formula 1.92 m2 1.92 m2 MEDENT ([facility], ) Body weight 178.6 [lb_av] 178.6 [lb_av] eCW1 ([facility]) Body height 63 [in_i] 63 [in_i] eCW1 ([facility]) Body mass index (BMI) [Ratio] 31.63 kg/m2 31.63 kg/m2 W1 ([facility]) Heart rate 72 /min 72 /min eCW1 ([facility]) Respiratory rate 20 /min 20 /min eCW1 ([facility]) Body temperature 97.7 [degF] 97.7 [degF] eCW1 ( [facility]) Systolic blood pressure 138 mm[Hg] 138 mm[Hg] e CW1 ([facility]) Diastolic blood pressure 70 mm[Hg] 70 mm[Hg] eCW1 ([facility]) Body temperature 96.9 [degF] 96.9 [degF] MEDENT ([facility]) Patient Treatment Plan of Care Planned Activity Planned Date Details Description Data Source (s) Clonazepam 0.5 MG Oral Tablet [Klonopin] 03/26/2021 12:00:00 AM EDT eCW1 ([facility]) Clonazepam 0.5 MG Oral Tablet [Klonopin] 03/26/2021 12:00:00 AM EDT eCW1 ([facility]) Clonazepam 0.5 MG Oral Tablet [Klonopin] 03/26/2021 12:00:00 AM EDT eCW1 ([facility]) Clonazepam 0.5 MG Oral Tablet [Klonopin] 03/26/2021 12:00:00 AM EDT eCW1 ([facility]) Clonazepam 0.5 MG Oral Tablet [Klonopin] 02/25/2021 12:00:00 AM EDT eCW1 ([facility]) Clonazepam 0.5 MG Oral Tablet [Klonopin] 02/25/2021 12:00:00 AM EDT eCW1 ([facility]) Clonazepam 0.5 MG Oral Tablet [Klonopin] 02/25/2021 12:00:00 AM EDT eCW1 ([facility]) Clonazepam 0.5 MG Oral Tablet [Klonopin] 02/25/2021 12:00:00 AM EDT eCW1 ([facility]) Clonazepam 0.5 MG Oral Tablet [Klonopin] 02/25/2021 12:00:00 AM EDT eCW1 ([facility]) Clonazepam 0.5 MG Oral Tablet [Klonopin] 02/25/2021 12:00:00 AM EDT eCW1 ([facility]) Clonazepam 0.5 MG Oral Tablet [Klonopin] 02/06/2021 12:00:00 AM EDT eCW1 ([facility]) Clonazepam 0.5 MG Oral Tablet [Klonopin] 02/06/2021 12:00:00 AM EDT eCW1 ([facility]) ferrous gluconate 324 MG Oral Tablet 02/03/2021 12:00:00 AM EDT eCW1 ([facility]) ferrous gluconate 324 MG Oral Tablet 02/03/2021 12:00:00 AM EDT eCW1 ([facility]) ferrous gluconate 324 MG Oral Tablet 02/03/2021 12:00:00 AM EDT eCW1 ([facility]) ferrous gluconate 324 MG Oral Tablet 02/03/2021 12:00:00 AM EDT eCW1 ([facility]) ferrous gluconate 324 MG Oral Tablet 02/03/2021 12:00:00 AM EDT eCW1 ([facility]) ferrous gluconate 324 MG Oral Tablet 02/03/2021 12:00:00 AM EDT eCW1 ([facility]) ferrous gluconate 324 MG Oral Tablet 02/03/2021 12:00:00 AM EDT eCW1 ([facility]) ferrous gluconate 324 MG Oral Tablet 02/03/2021 12:00:00 AM EDT eCW1 ([facility]) ferrous gluconate 324 MG Oral Tablet 02/03/2021 12:00:00 AM EDT eCW1 ([facility]) ferrous gluconate 324 MG Oral Tablet 02/03/2021 12:00:00 AM EDT eCW1 ([facility]) ferrous gluconate 324 MG Oral Tablet 02/03/2021 12:00:00 AM EDT eCW1 ([facility]) ferrous gluconate 324 MG Oral Tablet 02/03/2021 12:00:00 AM EDT eCW1 ([facility]) Ferrous Gluconate 02/03/2021 12:00:00 AM EDT eCW1 ([facility]) Ferrous Gluconate 02/03/2021 12:00:00 AM EDT eCW1 ([facility]) ferrous gluconate 324 MG Oral Tablet 02/03/2021 12:00:00 AM EDT eCW1 ([facility]) ferrous gluconate 324 MG Oral Tablet 02/03/2021 12:00:00 AM EDT eCW1 ([facility]) ferrous gluconate 324 MG Oral Tablet 02/03/2021 12:00:00 AM EDT eCW1 ([facility]) 60 ACTUAT Fluticasone propionate 0.25 MG /ACTUAT / salmeterol 0.05 MG/ACTUAT Dry Powder Inhaler [Advair] 01/28/2021 12:00:00 AM EDT eCW1 ([facility]) Albuterol Sulfate HFA 108 (90 Base) MCG/ACT 01/28/2021 12:00:00 AM EDT eCW1 ([facility]) 60 ACTUAT Fluticasone propionate 0.25 MG /ACTUAT / salmeterol 0.05 MG/ACTUAT Dry Powder Inhaler [Advair] 01/28/2021 12:00:00 AM EDT eCW1 ([facility]) 60 ACTUAT Fluticasone propionate 0.25 MG /ACTUAT / salmeterol 0.05 MG/ACTUAT Dry Powder Inhaler [Advair] 01/28/2021 12:00:00 AM EDT eCW1 ([facility]) Albuterol Sulfate HFA 108 (90 Base) MCG/ACT 01/28/2021 12:00:00 AM EDT eCW1 ([facility]) 60 ACTUAT Fluticasone propionate 0.25 MG /ACTUAT / salmeterol 0.05 MG/ACTUAT Dry Powder Inhaler [Advair] 01/28/2021 12:00:00 AM EDT eCW1 ([facility]) Albuterol Sulfate HFA 108 (90 Base) MCG/ACT 01/28/2021 12:00:00 AM EDT eCW1 ([facility]) 60 ACTUAT Fluticasone propionate 0.25 MG /ACTUAT / salmeterol 0.05 MG/ACTUAT Dry Powder Inhaler [Advair] 01/28/2021 12:00:00 AM EDT eCW1 ([facility]) Albuterol Sulfate HFA 108 (90 Base) MCG/ACT 01/28/2021 12:00:00 AM EDT eCW1 ([facility]) Albuterol Sulfate HFA 108 (90 Base) MCG/ACT 01/28/2021 12:00:00 AM EDT eCW1 ([facility]) 60 ACTUAT Fluticasone propionate 0.25 MG /ACTUAT / salmeterol 0.05 MG/ACTUAT Dry Powder Inhaler [Advair] 01/28/2021 12:00:00 AM EDT eCW1 ([facility]) Albuterol Sulfate HFA 108 (90 Base) MCG/ACT 01/28/2021 12:00:00 AM EDT eCW1 ([facility]) 60 ACTUAT Fluticasone propionate 0.25 MG /ACTUAT / salmeterol 0.05 MG/ACTUAT Dry Powder Inhaler [Advair] 01/28/2021 12:00:00 AM EDT eCW1 ([facility]) Albuterol Sulfate HFA 108 (90 Base) MCG/ACT 01/28/2021 12:00:00 AM EDT eCW1 ([facility]) Albuterol Sulfate HFA 108 (90 Base) MCG/ACT 01/28/2021 12:00:00 AM EDT eCW1 ([facility]) 60 ACTUAT Fluticasone propionate 0.25 MG /ACTUAT / salmeterol 0.05 MG/ACTUAT Dry Powder Inhaler [Advair] 01/28/2021 12:00:00 AM EDT eCW1 ([facility]) Albuterol Sulfate HFA 108 (90 Base) MCG/ACT 01/28/2021 12:00:00 AM EDT eCW1 ([facility]) 60 ACTUAT Fluticasone propionate 0.25 MG /ACTUAT / salmeterol 0.05 MG/ACTUAT Dry Powder Inhaler [Advair] 01/28/2021 12:00:00 AM EDT eCW1 ([facility]) Albuterol Sulfate HFA 108 (90 Base) MCG/ACT 01/28/2021 12:00:00 AM EDT eCW1 ([facility]) Albuterol Sulfate HFA 108 (90 Base) MCG/ACT 01/28/2021 12:00:00 AM EDT eCW1 ([facility]) 60 ACTUAT Fluticasone propionate 0.25 MG /ACTUAT / salmeterol 0.05 MG/ACTUAT Dry Powder Inhaler [Advair] 01/28/2021 12:00:00 AM EDT eCW1 ([facility]) Albuterol Sulfate HFA 108 (90 Base) MCG/ACT 01/28/2021 12:00:00 AM EDT eCW1 ([facility]) Albuterol Sulfate HFA 108 (90 Base) MCG/ACT 01/28/2021 12:00:00 AM EDT eCW1 ([facility]) 60 ACTUAT Fluticasone propionate 0.25 MG /ACTUAT / salmeterol 0.05 MG/ACTUAT Dry Powder Inhaler [Advair] 01/28/2021 12:00:00 AM EDT eCW1 ([facility]) 60 ACTUAT Fluticasone propionate 0.25 MG /ACTUAT / salmeterol 0.05 MG/ACTUAT Dry Powder Inhaler [Advair] 01/28/2021 12:00:00 AM EDT eCW1 ([facility]) Albuterol Sulfate HFA 108 (90 Base) MCG/ACT 01/28/2021 12:00:00 AM EDT eCW1 ([facility]) 60 ACTUAT Fluticasone propionate 0.25 MG /ACTUAT / salmeterol 0.05 MG/ACTUAT Dry Powder Inhaler [Advair] 01/28/2021 12:00:00 AM EDT eCW1 ([facility]) 60 ACTUAT Fluticasone propionate 0.25 MG /ACTUAT / salmeterol 0.05 MG/ACTUAT Dry Powder Inhaler [Advair] 01/28/2021 12:00:00 AM EDT eCW1 ([facility]) Albuterol Sulfate HFA 108 (90 Base) MCG/ACT 01/28/2021 12:00:00 AM EDT eCW1 ([facility]) 60 ACTUAT Fluticasone propionate 0.25 MG /ACTUAT / salmeterol 0.05 MG/ACTUAT Dry Powder Inhaler [Advair] 01/28/2021 12:00:00 AM EDT eCW1 ([facility]) Albuterol Sulfate HFA 108 (90 Base) MCG/ACT 01/28/2021 12:00:00 AM EDT eCW1 ([facility]) 60 ACTUAT Fluticasone propionate 0.25 MG /ACTUAT / salmeterol 0.05 MG/ACTUAT Dry Powder Inhaler [Advair] 01/28/2021 12:00:00 AM EDT eCW1 ([facility]) Albuterol Sulfate HFA 108 (90 Base) MCG/ACT 01/28/2021 12:00:00 AM EDT eCW1 ([facility]) 60 ACTUAT Fluticasone propionate 0.25 MG /ACTUAT / salmeterol 0.05 MG/ACTUAT Dry Powder Inhaler [Advair] 01/28/2021 12:00:00 AM EDT eCW1 ([facility]) tramadol hydrochloride 50 MG Oral Tablet 03/28/2020 12:00:00 AM EDT eCW1 ([facility]) tramadol hydrochloride 50 MG Oral Tablet 03/28/2020 12:00:00 AM EDT eCW1 ([facility]) tramadol hydrochloride 50 MG Oral Tablet 03/28/2020 12:00:00 AM EDT eCW1 ([facility]) tramadol hydrochloride 50 MG Oral Tablet 03/28/2020 12:00:00 AM EDT eCW1 ([facility]) tramadol hydrochloride 50 MG Oral Tablet 03/28/2020 12:00:00 AM EDT eCW1 ([facility]) tramadol hydrochloride 50 MG Oral Tablet 03/28/2020 12:00:00 AM EDT eCW1 ([facility]) tramadol hydrochloride 50 MG Oral Tablet 03/28/2020 12:00:00 AM EDT eCW1 ([facility]) tramadol hydrochloride 50 MG Oral Tablet 03/28/2020 12:00:00 AM EDT eCW1 ([facility]) tramadol hydrochloride 50 MG Oral Tablet 03/28/2020 12:00:00 AM EDT eCW1 ([facility]) tramadol hydrochloride 50 MG Oral Tablet 03/28/2020 12:00:00 AM EDT eCW1 ([facility]) tramadol hydrochloride 50 MG Oral Tablet 03/28/2020 12:00:00 AM EDT eCW1 ([facility]) tramadol hydrochloride 50 MG Oral Tablet 03/28/2020 12:00:00 AM EDT eCW1 ([facility])
[2021-05-05] MEDS ORDERED: propofoL 500 MG/50 ML VIAL As Ordered ONE (09:34)
[2021-05-05] MEDS ORDERED: LIDOCAINE 2% 100MG/5ML SDV (FOR ANES.) As Ordered ONE (09:34)
--- NOTE | 2021-05-05 10:03 | ROOR ---
Patient Name: Bhavana Tate Procedure Date: 05/05/2021 9:31 AM Date of : 1955 Age: 66 Room: [facility] Gender: Female Note Status: Finalized Procedure: Colonoscopy Indications: High risk colon cancer surveillance: Personal history of colonic polyps Providers: Rodrick Tuttle MD Referring MD: Hortencia Deal NP Requesting Provider: Medicines: Monitored Anesthesia Care Complications: No immediate complications. Procedure: Pre-Anesthesia Assessment: - The heart rate, respiratory rate, oxygen saturations, blood pressure, adequacy of pulmonary ventilation, and response to care were monitored throughout the procedure. The Colonoscope was introduced through the anus and advanced to the cecum, identified by appendiceal orifice and ileocecal valve. The colonoscopy was performed without difficulty. The patient tolerated the procedure well. The quality of the bowel preparation was good. Findings: The perianal and digital rectal examinations were normal. A 5 mm polyp was found in the proximal ascending colon. The polyp was sessile. The polyp was removed with a cold snare. Resection and retrieval were complete. A 10 mm benign appearing polypoid mucosal fold/projection was found in the mid sigmoid colon. The lesion was pedunculated. The tip pf the polypoid projection was removed with a cold snare. Resection was incomplete. The resected tissue was retrieved. Two sessile polyps were found in the distal sigmoid colon. The polyps were 4 to 5 mm in size. These polyps were removed with a cold snare. Resection and retrieval were complete. Multiple diverticula were found in the sigmoid colon. The exam was otherwise without abnormality on direct and retroflexion views. Impression: - One 5 mm polyp in the proximal ascending colon, removed with a cold snare. Resected and retrieved. - A 1 cm benign appearing polypoid fold in the mid sigmoid colon. Tissue was partially removed for histology. - Two 4 to 5 mm polyps in the distal sigmoid colon, removed with a cold snare. Resected and retrieved. - Diverticulosis in the sigmoid colon. - The examination was otherwise normal on direct and retroflexion views. Recommendation: - Telephone endoscopist for pathology results in 2 weeks. - Repeat colonoscopy for surveillance based on pathology results. Procedure Code(s): --- Professional --- 94114, Colonoscopy, flexible; with removal of tumor(s), polyp(s), or other lesion(s) by snare technique Diagnosis Code(s): --- Professional --- K57.30, Diverticulosis of large intestine without perforation or abscess without bleeding D49.0, Neoplasm of unspecified behavior of digestive system Z86.010, Personal history of colonic polyps K63.5, Polyp of colon CPT copyright 2019 [employer]. All rights reserved. The codes documented in this report are preliminary and upon coding director review may be revised to meet current compliance requirements. Rodrick Tuttle MD Rodrick Tuttle MD 05/05/2021 10:03:18 AM Electronically signed by Rodrick Tuttle MD Number of Addenda: 0 Note Initiated On: 05/05/2021 9:31 AM Estimated Blood Loss: Estimated blood loss: none.
[2021-05-05 10:32] VITALS: BP 148/74
== END 2021-05-05 10:50 | disposition home or self-care (01) ==
LOC: M OPP 08:00
PROVIDERS: ATTEND Internal Medicine Gastroenterology
DX: D12.6 Benign neoplasm of colon, unspecified (principal); D49.0 Neoplasm of unspecified behavior of digestive system; K57.30 Diverticulosis of large intestine without perforation or abscess without bleeding; I10 Essential (primary) hypertension; E78.5 Hyperlipidemia, unspecified; D64.9 Anemia, unspecified; R12 Heartburn; K74.60 Unspecified cirrhosis of liver; B18.2 Chronic viral hepatitis C; F41.9 Anxiety disorder, unspecified; F32.A Depression, unspecified; F17.200 Nicotine dependence, unspecified, uncomplicated; Z88.0 Allergy status to penicillin; Z88.6 Allergy status to analgesic agent; Z79.899 Other long term (current) drug therapy

== ENCOUNTER → 2021-08-11 | Outpatient (REF) | payer MEDICARE, MEDICAID ==
[~2021-08-11] MED LIST changes: -NS 1,000 ML IV ONE; -OMEP-221 PO; +OMEP40CA5 PO
[2021-08-11 11:02] LABS: HEMATOCRIT 42.8 % (36.0-47.0); HEMOGLOBIN 13.3 g/dl (12.0-15.5); MEAN CORPUSCULAR HEMOGLOBIN 30.1 pg (27.0-33.0); MEAN CORPUSCULAR HGB CONC 31.1 g/dl (32.0-36.5); MEAN CORPUSCULAR VOLUME 96.8 fl (80.0-96.0); PLATELET COUNT, AUTOMATED 162 10^3/uL (150-450); RED BLOOD COUNT 4.42 10^6/uL (4.00-5.40); WHITE BLOOD COUNT 8.5 10^3/uL (4.0-10.0)
[2021-08-11 11:33] LABS: ALBUMIN 3.4 GM/DL (3.2-5.2); ALT/SGPT 14 U/L (12-78); BILIRUBIN,TOTAL 0.5 MG/DL (0.2-1.0); BLOOD UREA NITROGEN 9 MG/DL (7-18); CALCIUM LEVEL 9.1 MG/DL (8.8-10.2); CARBON DIOXIDE LEVEL 31 MEQ/L (21-32); CHLORIDE LEVEL 104 MEQ/L (98-107); CHOLESTEROL LEVEL 149 MG/DL (<200); CHOLESTEROL RISK RATIO 2.709 (<5); CREATININE FOR GFR 0.91 MG/DL (0.55-1.30); FERRITIN 21 NG/ML (8-252); GLOMERULAR FILTRATION RATE > 60.0 (>45); GLUCOSE, FASTING 72 MG/DL (70-100); HDL CHOLESTEROL 55 MG/DL (>40); IRON (FE) 82 UG/DL (50-170); LDL CHOLESTEROL 69 MG/DL (<100); NON-HDL-C 94 MG/DL; PERCENT SATURATION 23.6 % (13.2-45.0); POTASSIUM SERUM 4.3 MEQ/L (3.5-5.1); SODIUM LEVEL 140 MEQ/L (136-145); TOTAL IRON BINDING CAPACITY 347 UG/DL (250-450); TOTAL PROTEIN 6.9 GM/DL (6.4-8.2); TRIGLYCERIDES LEVEL 126 MG/DL (<150)
== END ==
PROVIDERS: ATTEND Nurse Practitioner Adult Health
DX: D64.9 Anemia, unspecified (principal); E78.2 Mixed hyperlipidemia; I10 Essential (primary) hypertension

== ENCOUNTER → 2021-09-18 | Outpatient (CLI) | payer MEDICARE, MEDICAID | LOC: M WHC 09:30 | PROVIDERS: ATTEND Nurse Practitioner Adult Health | DX: Z12.31 Encounter for screening mammogram for malignant neoplasm of breast (principal) ==

== ENCOUNTER → 2022-02-11 | Outpatient (REF) | payer MEDICARE, MEDICAID ==
[~2022-02-11] MED LIST changes: +SIMV-253 PO; -ZOCO20TA PO
[2022-02-11 10:48] LABS: HEMOGLOBIN 13.3 g/dl (12.0-15.5); MEAN CORPUSCULAR HEMOGLOBIN 30.4 pg (27.0-33.0); MEAN CORPUSCULAR HGB CONC 30.9 g/dl (32.0-36.5); MEAN CORPUSCULAR VOLUME 98.2 fl (80.0-96.0); PLATELET COUNT, AUTOMATED 145 10^3/uL (150-450); RED BLOOD COUNT 4.38 10^6/uL (4.00-5.40); WHITE BLOOD COUNT 6.3 10^3/uL (4.0-10.0)
[2022-02-11 12:22] LABS: ALBUMIN 3.4 GM/DL (3.2-5.2); ALT/SGPT 18 U/L (12-78); BILIRUBIN,TOTAL 0.5 MG/DL (0.2-1.0); BLOOD UREA NITROGEN 10 MG/DL (7-18); CALCIUM LEVEL 9.1 MG/DL (8.8-10.2); CARBON DIOXIDE LEVEL 36 MEQ/L (21-32); CHLORIDE LEVEL 104 MEQ/L (98-107); CHOLESTEROL LEVEL 147 MG/DL (<200); CHOLESTEROL RISK RATIO 2.672 (<5); CREATININE FOR GFR 0.87 MG/DL (0.55-1.30); GLOMERULAR FILTRATION RATE > 60.0 (>45); GLUCOSE, FASTING 82 MG/DL (70-100); HDL CHOLESTEROL 55 MG/DL (>40); LDL CHOLESTEROL 65 MG/DL (<100); NON-HDL-C 92 MG/DL; POTASSIUM SERUM 4.6 MEQ/L (3.5-5.1); SODIUM LEVEL 140 MEQ/L (136-145); TRIGLYCERIDES LEVEL 134 MG/DL (<150)
== END ==
PROVIDERS: ATTEND Nurse Practitioner Adult Health
DX: I10 Essential (primary) hypertension (principal); E78.2 Mixed hyperlipidemia; D64.9 Anemia, unspecified

== ENCOUNTER → 2022-08-10 | Outpatient (REF) | payer MEDICARE, MEDICAID ==
[~2022-08-10] MED LIST changes: -DOXY-350 PO; +DOXY-444 PO
[2022-08-10 10:31] LABS: HEMATOCRIT 46.4 % (36.0-47.0); HEMOGLOBIN 14.1 g/dl (12.0-15.5); MEAN CORPUSCULAR HEMOGLOBIN 30.5 pg (27.0-33.0); MEAN CORPUSCULAR HGB CONC 30.4 g/dl (32.0-36.5); MEAN CORPUSCULAR VOLUME 100.2 fl (80.0-96.0); PLATELET COUNT, AUTOMATED 161 10^3/uL (150-450); RED BLOOD COUNT 4.63 10^6/uL (4.00-5.40); WHITE BLOOD COUNT 7.9 10^3/uL (4.0-10.0)
[2022-08-10 11:08] LABS: ALBUMIN 3.7 G/DL (3.2-5.2); ALKALINE PHOSPHATASE 107 U/L (46-116); ALT/SGPT 11 U/L (7.0-40); AST/SGOT 21 U/L (<34); BILIRUBIN,TOTAL 0.7 MG/DL (0.3-1.2); BLOOD UREA NITROGEN 11 MG/DL (9-23); CALCIUM LEVEL 9.5 MG/DL (8.3-10.6); CARBON DIOXIDE LEVEL 31 MMOL/L (20-31); CHLORIDE LEVEL 105 MMOL/L (98-107); CHOLESTEROL LEVEL 134 MG/DL (<200); CHOLESTEROL RISK RATIO 2.42 (<5); CREATININE FOR GFR 0.82 MG/DL (0.55-1.30); GLOMERULAR FILTRATION RATE > 60.0 (>45); GLUCOSE, FASTING 81 MG/DL (74-106); HDL CHOLESTEROL 55.3 MG/DL (>40); LDL CHOLESTEROL 57.3 MG/DL (<100); NON-HDL-C 79 MG/DL; POTASSIUM SERUM 4.3 MMOL/L (3.5-5.1); SODIUM LEVEL 141 MMOL/L (136-145); TOTAL PROTEIN 7.1 G/DL (5.7-8.2); TRIGLYCERIDES LEVEL 107 MG/DL (<150)
== END ==
PROVIDERS: ATTEND Nurse Practitioner Adult Health
DX: E78.2 Mixed hyperlipidemia (principal); I10 Essential (primary) hypertension; D64.9 Anemia, unspecified

== ENCOUNTER → 2022-09-22 | Outpatient (CLI) | payer MEDICARE, MEDICAID | LOC: M WHC 08:48 | PROVIDERS: ATTEND Nurse Practitioner Adult Health | DX: Z12.31 Encounter for screening mammogram for malignant neoplasm of breast (principal); Z78.0 Asymptomatic menopausal state; Z80.0 Family history of malignant neoplasm of digestive organs; Z92.0 Personal history of contraception ==

== ENCOUNTER 2022-12-02 09:01 | Inpatient (IN) | payer MEDICARE, MEDICAID ==
[~2022-12-02] VITALS: Ht 167.6 cm; Wt 86.4 kg
[2022-12-02] MEDS ORDERED: methylPREDNISolone 125MG 2ML VIAL IV ONE (09:30)
[2022-12-02] MEDS ORDERED: ADV500INH INH (09:43)
[2022-12-02] MEDS ORDERED: VENTAER INH (09:43)
[2022-12-02] MEDS: COMBIVENT RESPIMAT 100-20MCG INHALER 4GM INH SCH ×6 (09:44→20:00)
[2022-12-02] MEDS ORDERED: HOME MED LIST COMPLETE! XX SCH (09:45)
[2022-12-02 10:01] LABS: BASO % 0.4 % (0.0-1.0); EOS % 0.7 % (0.0-3.0); HEMATOCRIT 43.7 % (36.0-47.0); HEMOGLOBIN 13.4 g/dl (12.0-15.5); LYMPH # 0.7 10^3/uL (1.5-5.0); LYMPH % 12.3 % (24.0-44.0); MEAN CORPUSCULAR HEMOGLOBIN 30.3 pg (27.0-33.0); MEAN CORPUSCULAR HGB CONC 30.7 g/dl (32.0-36.5); MEAN CORPUSCULAR VOLUME 98.9 fl (80.0-96.0); MONO # 0.8 10^3/uL (0.0-0.8); MONO % 14.7 % (2.0-8.0); NEUTROPHILS # 3.9 10^3/uL (1.5-8.5); NEUTROPHILS % 71.5 % (36.0-66.0); PLATELET COUNT, AUTOMATED 136 10^3/uL (150-450); RED BLOOD COUNT 4.42 10^6/uL (4.00-5.40); WHITE BLOOD COUNT 5.5 10^3/uL (4.0-10.0)
[2022-12-02 10:11] LABS: INR 0.98; PROTHROMBIN TIME 13.2 SECONDS (12.5-14.5)
[2022-12-02 10:12] LABS: PARTIAL THROMBOPLASTIN TIME 34.3 SECONDS (24.8-34.2)
[2022-12-02 10:24] LABS: LDH LACTATE DEHYDROGENASE 162 U/L (120-246)
[2022-12-02 10:26] LABS: ALBUMIN 3.4 G/DL (3.2-5.2); ALKALINE PHOSPHATASE 93 U/L (46-116); ALT/SGPT 12 U/L (7.0-40); AST/SGOT 11 U/L (<34); BILIRUBIN,TOTAL 0.4 MG/DL (0.3-1.2); BLOOD UREA NITROGEN 9 MG/DL (9-23); CALCIUM LEVEL 8.8 MG/DL (8.3-10.6); CARBON DIOXIDE LEVEL 33 MMOL/L (20-31); CHLORIDE LEVEL 104 MMOL/L (98-107); CREATININE FOR GFR 0.86 MG/DL (0.55-1.30); GLOMERULAR FILTRATION RATE > 60.0 (>45); GLUCOSE, FASTING 89 MG/DL (74-106); MAGNESIUM LEVEL 1.8 MG/DL (1.8-2.4); POTASSIUM SERUM 4.2 MMOL/L (3.5-5.1); SODIUM LEVEL 141 MMOL/L (136-145); TOTAL PROTEIN 6.5 G/DL (5.7-8.2)
[2022-12-02] MEDS ORDERED: ACETAMINOPHEN TAB 650MG DOSE (2X325MG) PO PRN (11:50)
[2022-12-02] MEDS ORDERED: ALBUTEROL 90 MCG/ACT 8GM HFA INHALER INH PRN (12:15)
[2022-12-02] MEDS ORDERED: MOM 30ML SUSPENSION UDC PO PRN (12:35)
[2022-12-02] MEDS: ENOXAPARIN 40MG/0.4ML SYRINGE (J1650 PER 10MG) SC SCH ×2 (14:19→21:26)
[2022-12-02] MEDS ORDERED: REMDESIVIR 200 MG in NS 250 ML IV ONE (15:00)
[2022-12-02 15:40] VITALS: BP 140/85; TEMP 97.5; O2SAT 89
[2022-12-02] MEDS ORDERED: SODIUM CHLORIDE 0.9% INJ 10 ML SYR IV ONE (17:00)
[2022-12-02] MEDS: GABAPENTIN 300 MG CAP PO SCH ×2 (17:08→21:25)
[2022-12-02] MEDS: ADVAIR HFA 230/21MCG INHALER INH SCH (19:32)
[2022-12-02] MEDS: clonazePAM 0.5 MG TAB PO SCH (21:25)
[2022-12-02] MEDS: MEMANTINE 5MG TABLET (NAMENDA) PO SCH (21:25)
[2022-12-02] MEDS: traZODone 100 MG TAB PO SCH (21:25)
[2022-12-02] MEDS: SIMVASTATIN 20 MG TAB PO SCH (21:26)
[2022-12-02 22:00] VITALS: BP 125/53; TEMP 97.7; O2SAT 90
[2022-12-03 06:07] VITALS: BP 124/56; TEMP 97.7; O2SAT 91
[2022-12-03] MEDS: GABAPENTIN 300 MG CAP PO SCH ×4 (06:37→20:34)
[2022-12-03] MEDS: ADVAIR HFA 230/21MCG INHALER INH SCH ×2 (07:37→19:25)
[2022-12-03] MEDS: COMBIVENT RESPIMAT 100-20MCG INHALER 4GM INH SCH ×4 (07:37→19:24)
[2022-12-03 07:46] LABS: HEMATOCRIT 42.1 % (36.0-47.0); HEMOGLOBIN 13.2 g/dl (12.0-15.5); MEAN CORPUSCULAR HEMOGLOBIN 30.8 pg (27.0-33.0); MEAN CORPUSCULAR HGB CONC 31.4 g/dl (32.0-36.5); MEAN CORPUSCULAR VOLUME 98.4 fl (80.0-96.0); PLATELET COUNT, AUTOMATED 115 10^3/uL (150-450); RED BLOOD COUNT 4.28 10^6/uL (4.00-5.40); WHITE BLOOD COUNT 3.9 10^3/uL (4.0-10.0)
[2022-12-03 08:32] LABS: ALBUMIN 3.1 G/DL (3.2-5.2); ALKALINE PHOSPHATASE 83 U/L (46-116); ALT/SGPT 11 U/L (7.0-40); AST/SGOT 10 U/L (<34); BILIRUBIN,TOTAL 0.4 MG/DL (0.3-1.2); BLOOD UREA NITROGEN 14 MG/DL (9-23); CALCIUM LEVEL 9.4 MG/DL (8.3-10.6); CARBON DIOXIDE LEVEL 33 MMOL/L (20-31); CHLORIDE LEVEL 102 MMOL/L (98-107); CREATININE FOR GFR 0.79 MG/DL (0.55-1.30); GLOMERULAR FILTRATION RATE > 60.0 (>45); GLUCOSE, FASTING 82 MG/DL (74-106); POTASSIUM SERUM 4.1 MMOL/L (3.5-5.1); SODIUM LEVEL 140 MMOL/L (136-145); TOTAL PROTEIN 6.2 G/DL (5.7-8.2)
[2022-12-03] MEDS: buPROPion **SR TABLET** (ZYBAN) 150MG PO SCH (09:32)
[2022-12-03] MEDS: MULTIVITAMINS/MINERALS THERAP 1 TAB PO SCH (09:33)
[2022-12-03] MEDS: CitaloPRAM (CeleXA) 20 MG TAB PO SCH (09:33)
[2022-12-03] MEDS: FERROUS GLUCONATE 324 MG TAB PO SCH (09:33)
[2022-12-03] MEDS: THIAMINE 100 MG TAB PO SCH (09:33)
[2022-12-03] MEDS: FOLIC ACID 1MG TAB PO SCH (09:33)
[2022-12-03] MEDS: ENOXAPARIN 40MG/0.4ML SYRINGE (J1650 PER 10MG) SC SCH ×2 (09:33→21:05)
[2022-12-03] MEDS: clonazePAM 0.5 MG TAB PO SCH ×2 (09:33→20:34)
[2022-12-03] MEDS: bisoproloL fumarate 5 MG TAB PO SCH (09:34)
[2022-12-03] MEDS: CYANOCOBALAMIN 500 MCG TAB PO SCH (09:34)
[2022-12-03] MEDS: MEMANTINE 5MG TABLET (NAMENDA) PO SCH ×2 (09:34→20:34)
[2022-12-03] MEDS: OMEPRAZOLE 20MG CAP PO SCH (09:34)
[2022-12-03 14:00] VITALS: BP 126/57; TEMP 97.2; O2SAT 91
[2022-12-03] MEDS: REMDESIVIR 100 MG in NS 250 ML IV SCH (15:37)
[2022-12-03] MEDS: SODIUM CHLORIDE 0.9% INJ 10 ML SYR IV SCH (15:37)
[2022-12-03 20:00] VITALS: BP 124/60; TEMP 97.2; O2SAT 88
[2022-12-03] MEDS: SIMVASTATIN 20 MG TAB PO SCH (20:34)
[2022-12-03] MEDS: traZODone 100 MG TAB PO SCH (20:34)
[2022-12-04 04:25] VITALS: O2SAT 94
[2022-12-04] MEDS: GABAPENTIN 300 MG CAP PO SCH ×4 (05:29→20:31)
[2022-12-04 06:00] VITALS: BP 126/55; TEMP 97.3; O2SAT 93
[2022-12-04 06:22] LABS: HEMATOCRIT 42.4 % (36.0-47.0); HEMOGLOBIN 13.3 g/dl (12.0-15.5); MEAN CORPUSCULAR HEMOGLOBIN 30.6 pg (27.0-33.0); MEAN CORPUSCULAR HGB CONC 31.4 g/dl (32.0-36.5); MEAN CORPUSCULAR VOLUME 97.5 fl (80.0-96.0); PLATELET COUNT, AUTOMATED 126 10^3/uL (150-450); RED BLOOD COUNT 4.35 10^6/uL (4.00-5.40)
[2022-12-04 06:47] LABS: ALBUMIN 3.2 G/DL (3.2-5.2); ALKALINE PHOSPHATASE 77 U/L (46-116); ALT/SGPT 12 U/L (7.0-40); AST/SGOT 17 U/L (<34); BILIRUBIN,TOTAL 0.3 MG/DL (0.3-1.2); BLOOD UREA NITROGEN 17 MG/DL (9-23); CALCIUM LEVEL 8.6 MG/DL (8.3-10.6); CARBON DIOXIDE LEVEL 34 MMOL/L (20-31); CHLORIDE LEVEL 104 MMOL/L (98-107); CREATININE FOR GFR 0.86 MG/DL (0.55-1.30); GLOMERULAR FILTRATION RATE > 60.0 (>45); GLUCOSE, FASTING 81 MG/DL (74-106); POTASSIUM SERUM 3.9 MMOL/L (3.5-5.1); SODIUM LEVEL 142 MMOL/L (136-145); TOTAL PROTEIN 6.1 G/DL (5.7-8.2)
[2022-12-04] MEDS: COMBIVENT RESPIMAT 100-20MCG INHALER 4GM INH SCH ×4 (07:39→19:31)
[2022-12-04] MEDS: ADVAIR HFA 230/21MCG INHALER INH SCH ×2 (07:39→19:31)
[2022-12-04] MEDS: ENOXAPARIN 40MG/0.4ML SYRINGE (J1650 PER 10MG) SC SCH ×2 (09:50→20:32)
[2022-12-04] MEDS: CYANOCOBALAMIN 500 MCG TAB PO SCH (09:51)
[2022-12-04] MEDS: CitaloPRAM (CeleXA) 20 MG TAB PO SCH (09:51)
[2022-12-04] MEDS: THIAMINE 100 MG TAB PO SCH (09:51)
[2022-12-04] MEDS: bisoproloL fumarate 5 MG TAB PO SCH (09:51)
[2022-12-04] MEDS: OMEPRAZOLE 20MG CAP PO SCH (09:51)
[2022-12-04] MEDS: buPROPion **SR TABLET** (ZYBAN) 150MG PO SCH (09:51)
[2022-12-04] MEDS: MEMANTINE 5MG TABLET (NAMENDA) PO SCH ×2 (09:51→20:32)
[2022-12-04] MEDS: clonazePAM 0.5 MG TAB PO SCH ×2 (09:51→20:31)
[2022-12-04] MEDS: MULTIVITAMINS/MINERALS THERAP 1 TAB PO SCH (09:52)
[2022-12-04] MEDS: FOLIC ACID 1MG TAB PO SCH (09:52)
[2022-12-04] MEDS: FERROUS GLUCONATE 324 MG TAB PO SCH (09:52)
[2022-12-04 14:00] VITALS: BP 133/61; TEMP 97.5; O2SAT 91
[2022-12-04] MEDS: REMDESIVIR 100 MG in NS 250 ML IV SCH (16:27)
[2022-12-04] MEDS: SODIUM CHLORIDE 0.9% INJ 10 ML SYR IV SCH (16:28)
[2022-12-04] MEDS: traZODone 100 MG TAB PO SCH (20:31)
[2022-12-04] MEDS: SIMVASTATIN 20 MG TAB PO SCH (20:31)
[2022-12-04 21:20] VITALS: BP 115/51; TEMP 97.5; O2SAT 90
[2022-12-04 22:30] VITALS: O2SAT 94
[2022-12-05 00:10] VITALS: O2SAT 93
[2022-12-05 04:40] VITALS: BP 132/63; TEMP 97.9; O2SAT 90
[2022-12-05 06:10] LABS: HEMATOCRIT 42.6 % (36.0-47.0); HEMOGLOBIN 13.3 g/dl (12.0-15.5); MEAN CORPUSCULAR HEMOGLOBIN 30.5 pg (27.0-33.0); MEAN CORPUSCULAR HGB CONC 31.2 g/dl (32.0-36.5); MEAN CORPUSCULAR VOLUME 97.7 fl (80.0-96.0); PLATELET COUNT, AUTOMATED 127 10^3/uL (150-450); RED BLOOD COUNT 4.36 10^6/uL (4.00-5.40); WHITE BLOOD COUNT 4.5 10^3/uL (4.0-10.0)
[2022-12-05] MEDS: GABAPENTIN 300 MG CAP PO SCH ×4 (06:24→20:36)
[2022-12-05 06:31] LABS: ALBUMIN 3.2 G/DL (3.2-5.2); ALKALINE PHOSPHATASE 73 U/L (46-116); ALT/SGPT 13 U/L (7.0-40); AST/SGOT 14 U/L (<34); BILIRUBIN,TOTAL 0.3 MG/DL (0.3-1.2); BLOOD UREA NITROGEN 14 MG/DL (9-23); CALCIUM LEVEL 8.5 MG/DL (8.3-10.6); CARBON DIOXIDE LEVEL 34 MMOL/L (20-31); CHLORIDE LEVEL 103 MMOL/L (98-107); CREATININE FOR GFR 0.87 MG/DL (0.55-1.30); GLOMERULAR FILTRATION RATE > 60.0 (>45); GLUCOSE, FASTING 83 MG/DL (74-106); POTASSIUM SERUM 3.9 MMOL/L (3.5-5.1); SODIUM LEVEL 141 MMOL/L (136-145)
[2022-12-05 06:37] VITALS: O2SAT 93
[2022-12-05] MEDS: ADVAIR HFA 230/21MCG INHALER INH SCH ×2 (07:54→20:50)
[2022-12-05] MEDS: COMBIVENT RESPIMAT 100-20MCG INHALER 4GM INH SCH ×4 (07:54→20:50)
[2022-12-05] MEDS: ENOXAPARIN 40MG/0.4ML SYRINGE (J1650 PER 10MG) SC SCH ×2 (08:39→20:36)
[2022-12-05] MEDS: THIAMINE 100 MG TAB PO SCH (08:40)
[2022-12-05] MEDS: clonazePAM 0.5 MG TAB PO SCH ×2 (08:40→20:36)
[2022-12-05] MEDS: OMEPRAZOLE 20MG CAP PO SCH (08:41)
[2022-12-05] MEDS: CitaloPRAM (CeleXA) 20 MG TAB PO SCH (08:41)
[2022-12-05] MEDS: MULTIVITAMINS/MINERALS THERAP 1 TAB PO SCH (08:41)
[2022-12-05] MEDS: buPROPion **SR TABLET** (ZYBAN) 150MG PO SCH (08:42)
[2022-12-05] MEDS: MEMANTINE 5MG TABLET (NAMENDA) PO SCH ×2 (08:42→20:36)
[2022-12-05] MEDS: CYANOCOBALAMIN 500 MCG TAB PO SCH (08:42)
[2022-12-05] MEDS: FOLIC ACID 1MG TAB PO SCH (08:43)
[2022-12-05] MEDS: bisoproloL fumarate 5 MG TAB PO SCH (08:43)
[2022-12-05 14:29] VITALS: BP 124/58; TEMP 97.5; O2SAT 92
[2022-12-05] MEDS: REMDESIVIR 100 MG in NS 250 ML IV SCH (14:52)
[2022-12-05] MEDS: SODIUM CHLORIDE 0.9% INJ 10 ML SYR IV SCH (16:12)
[2022-12-05] MEDS: SIMVASTATIN 20 MG TAB PO SCH (20:36)
[2022-12-05] MEDS: traZODone 100 MG TAB PO SCH (20:36)
[2022-12-05 21:20] VITALS: BP 119/54; TEMP 97.7; O2SAT 95
[2022-12-05 22:00] VITALS: O2SAT 93
[2022-12-06] VITALS (9 sets, daily range): BP systolic 107–138; BP diastolic 51–65; TEMP 96.8–97.7; O2SAT 91–97
[2022-12-06] MEDS: GABAPENTIN 300 MG CAP PO SCH ×4 (05:47→20:43)
[2022-12-06 06:00] LABS: HEMOGLOBIN 13.3 g/dl (12.0-15.5); MEAN CORPUSCULAR HEMOGLOBIN 30.2 pg (27.0-33.0); MEAN CORPUSCULAR HGB CONC 30.9 g/dl (32.0-36.5); MEAN CORPUSCULAR VOLUME 97.5 fl (80.0-96.0); PLATELET COUNT, AUTOMATED 120 10^3/uL (150-450); RED BLOOD COUNT 4.41 10^6/uL (4.00-5.40); WHITE BLOOD COUNT 7.4 10^3/uL (4.0-10.0)
[2022-12-06 06:21] LABS: ALBUMIN 3.2 G/DL (3.2-5.2); ALKALINE PHOSPHATASE 70 U/L (46-116); ALT/SGPT 17 U/L (7.0-40); AST/SGOT 19 U/L (<34); BILIRUBIN,TOTAL 0.3 MG/DL (0.3-1.2); BLOOD UREA NITROGEN 15 MG/DL (9-23); CARBON DIOXIDE LEVEL 35 MMOL/L (20-31); CHLORIDE LEVEL 105 MMOL/L (98-107); CREATININE FOR GFR 0.85 MG/DL (0.55-1.30); GLOMERULAR FILTRATION RATE > 60.0 (>45); GLUCOSE, FASTING 90 MG/DL (74-106); SODIUM LEVEL 145 MMOL/L (136-145); TOTAL PROTEIN 5.9 G/DL (5.7-8.2)
[2022-12-06] MEDS: COMBIVENT RESPIMAT 100-20MCG INHALER 4GM INH SCH ×4 (07:55→19:02)
[2022-12-06] MEDS: ADVAIR HFA 230/21MCG INHALER INH SCH ×2 (07:55→19:02)
[2022-12-06] MEDS: clonazePAM 0.5 MG TAB PO SCH ×2 (09:32→20:43)
[2022-12-06] MEDS: FOLIC ACID 1MG TAB PO SCH (09:33)
[2022-12-06] MEDS: CitaloPRAM (CeleXA) 20 MG TAB PO SCH (09:33)
[2022-12-06] MEDS: THIAMINE 100 MG TAB PO SCH (09:33)
[2022-12-06] MEDS: OMEPRAZOLE 20MG CAP PO SCH (09:33)
[2022-12-06] MEDS: CYANOCOBALAMIN 500 MCG TAB PO SCH (09:33)
[2022-12-06] MEDS: buPROPion **SR TABLET** (ZYBAN) 150MG PO SCH (09:33)
[2022-12-06] MEDS: MEMANTINE 5MG TABLET (NAMENDA) PO SCH ×2 (09:33→20:42)
[2022-12-06] MEDS: MULTIVITAMINS/MINERALS THERAP 1 TAB PO SCH (09:33)
[2022-12-06] MEDS: ENOXAPARIN 40MG/0.4ML SYRINGE (J1650 PER 10MG) SC SCH ×2 (09:34→20:43)
[2022-12-06] MEDS: bisoproloL fumarate 5 MG TAB PO SCH (09:34)
[2022-12-06] MEDS: REMDESIVIR 100 MG in NS 250 ML IV SCH (16:31)
[2022-12-06] MEDS: SODIUM CHLORIDE 0.9% INJ 10 ML SYR IV SCH (16:32)
[2022-12-06] MEDS: traZODone 100 MG TAB PO SCH (20:43)
[2022-12-06] MEDS: SIMVASTATIN 20 MG TAB PO SCH (20:43)
[2022-12-07] VITALS (9 sets, daily range): BP systolic 135–166; BP diastolic 62–73; TEMP 97.5–97.7; O2SAT 92–95
[2022-12-07 06:01] LABS: HEMATOCRIT 42.8 % (36.0-47.0); HEMOGLOBIN 13.3 g/dl (12.0-15.5); MEAN CORPUSCULAR HEMOGLOBIN 29.9 pg (27.0-33.0); MEAN CORPUSCULAR HGB CONC 31.1 g/dl (32.0-36.5); MEAN CORPUSCULAR VOLUME 96.2 fl (80.0-96.0); PLATELET COUNT, AUTOMATED 121 10^3/uL (150-450); RED BLOOD COUNT 4.45 10^6/uL (4.00-5.40); WHITE BLOOD COUNT 7.3 10^3/uL (4.0-10.0)
[2022-12-07] MEDS: GABAPENTIN 300 MG CAP PO SCH ×4 (06:07→21:46)
[2022-12-07 06:23] LABS: ALBUMIN 3.1 G/DL (3.2-5.2); ALKALINE PHOSPHATASE 72 U/L (46-116); ALT/SGPT 14 U/L (7.0-40); AST/SGOT 12 U/L (<34); BILIRUBIN,TOTAL 0.4 MG/DL (0.3-1.2); BLOOD UREA NITROGEN 15 MG/DL (9-23); CARBON DIOXIDE LEVEL 35 MMOL/L (20-31); CHLORIDE LEVEL 103 MMOL/L (98-107); CREATININE FOR GFR 0.84 MG/DL (0.55-1.30); GLOMERULAR FILTRATION RATE > 60.0 (>45); GLUCOSE, FASTING 90 MG/DL (74-106); SODIUM LEVEL 143 MMOL/L (136-145); TOTAL PROTEIN 5.9 G/DL (5.7-8.2)
[2022-12-07] MEDS: ADVAIR HFA 230/21MCG INHALER INH SCH ×2 (07:29→19:36)
[2022-12-07] MEDS: COMBIVENT RESPIMAT 100-20MCG INHALER 4GM INH SCH ×4 (07:29→19:36)
[2022-12-07] MEDS: FOLIC ACID 1MG TAB PO SCH (08:10)
[2022-12-07] MEDS: clonazePAM 0.5 MG TAB PO SCH ×2 (08:10→21:46)
[2022-12-07] MEDS: OMEPRAZOLE 20MG CAP PO SCH (08:10)
[2022-12-07] MEDS: MEMANTINE 5MG TABLET (NAMENDA) PO SCH ×2 (08:11→21:46)
[2022-12-07] MEDS: buPROPion **SR TABLET** (ZYBAN) 150MG PO SCH (08:11)
[2022-12-07] MEDS: FERROUS GLUCONATE 324 MG TAB PO SCH (08:11)
[2022-12-07] MEDS: CitaloPRAM (CeleXA) 20 MG TAB PO SCH (08:11)
[2022-12-07] MEDS: CYANOCOBALAMIN 500 MCG TAB PO SCH (08:11)
[2022-12-07] MEDS: bisoproloL fumarate 5 MG TAB PO SCH (08:11)
[2022-12-07] MEDS: MULTIVITAMINS/MINERALS THERAP 1 TAB PO SCH (08:12)
[2022-12-07] MEDS: ENOXAPARIN 40MG/0.4ML SYRINGE (J1650 PER 10MG) SC SCH ×2 (08:12→21:45)
[2022-12-07] MEDS: predniSONE 20 MG TAB PO SCH (08:15)
[2022-12-07] MEDS: THIAMINE 100 MG TAB PO SCH (08:15)
[2022-12-07] MEDS: SIMVASTATIN 20 MG TAB PO SCH (21:46)
[2022-12-07] MEDS: traZODone 100 MG TAB PO SCH (21:46)
[2022-12-08] VITALS (8 sets, daily range): BP systolic 123–139; BP diastolic 59–66; TEMP 97.2–97.7; O2SAT 90–96
[2022-12-08 06:01] LABS: HEMATOCRIT 42.2 % (36.0-47.0); HEMOGLOBIN 13.5 g/dl (12.0-15.5); MEAN CORPUSCULAR HEMOGLOBIN 30.5 pg (27.0-33.0); MEAN CORPUSCULAR VOLUME 95.5 fl (80.0-96.0); PLATELET COUNT, AUTOMATED 124 10^3/uL (150-450); RED BLOOD COUNT 4.42 10^6/uL (4.00-5.40); WHITE BLOOD COUNT 7.3 10^3/uL (4.0-10.0)
[2022-12-08 06:21] LABS: ALBUMIN 3.2 G/DL (3.2-5.2); ALKALINE PHOSPHATASE 71 U/L (46-116); ALT/SGPT 15 U/L (7.0-40); AST/SGOT 10 U/L (<34); BILIRUBIN,TOTAL 0.5 MG/DL (0.3-1.2); BLOOD UREA NITROGEN 19 MG/DL (9-23); CALCIUM LEVEL 8.7 MG/DL (8.3-10.6); CARBON DIOXIDE LEVEL 33 MMOL/L (20-31); CHLORIDE LEVEL 105 MMOL/L (98-107); CREATININE FOR GFR 0.87 MG/DL (0.55-1.30); GLOMERULAR FILTRATION RATE > 60.0 (>45); GLUCOSE, FASTING 79 MG/DL (74-106); POTASSIUM SERUM 3.7 MMOL/L (3.5-5.1); SODIUM LEVEL 142 MMOL/L (136-145); TOTAL PROTEIN 5.9 G/DL (5.7-8.2)
[2022-12-08] MEDS: GABAPENTIN 300 MG CAP PO SCH ×4 (06:28→20:00)
[2022-12-08] MEDS: COMBIVENT RESPIMAT 100-20MCG INHALER 4GM INH SCH ×3 (07:20→19:27)
[2022-12-08] MEDS: ADVAIR HFA 230/21MCG INHALER INH SCH ×2 (07:20→19:27)
[2022-12-08] MEDS: buPROPion **SR TABLET** (ZYBAN) 150MG PO SCH (10:10)
[2022-12-08] MEDS: FOLIC ACID 1MG TAB PO SCH (10:10)
[2022-12-08] MEDS: CYANOCOBALAMIN 500 MCG TAB PO SCH (10:10)
[2022-12-08] MEDS: predniSONE 20 MG TAB PO SCH (10:10)
[2022-12-08] MEDS: CitaloPRAM (CeleXA) 20 MG TAB PO SCH (10:11)
[2022-12-08] MEDS: THIAMINE 100 MG TAB PO SCH (10:11)
[2022-12-08] MEDS: MULTIVITAMINS/MINERALS THERAP 1 TAB PO SCH (10:11)
[2022-12-08] MEDS: MEMANTINE 5MG TABLET (NAMENDA) PO SCH ×2 (10:11→22:08)
[2022-12-08] MEDS: FERROUS GLUCONATE 324 MG TAB PO SCH (10:11)
[2022-12-08] MEDS: clonazePAM 0.5 MG TAB PO SCH ×2 (10:11→22:08)
[2022-12-08] MEDS: OMEPRAZOLE 20MG CAP PO SCH (10:11)
[2022-12-08] MEDS: ENOXAPARIN 40MG/0.4ML SYRINGE (J1650 PER 10MG) SC SCH ×2 (10:12→22:07)
[2022-12-08] MEDS: bisoproloL fumarate 5 MG TAB PO SCH (10:12)
[2022-12-08] MEDS: traZODone 100 MG TAB PO SCH (22:07)
[2022-12-08] MEDS: SIMVASTATIN 20 MG TAB PO SCH (22:08)
[2022-12-09] VITALS: O2SAT 95
[2022-12-09 02:00] VITALS: O2SAT 95
[2022-12-09 04:00] VITALS: O2SAT 95
[2022-12-09] MEDS: GABAPENTIN 300 MG CAP PO SCH ×2 (05:48→09:40)
[2022-12-09 05:53] LABS: HEMOGLOBIN 13.5 g/dl (12.0-15.5); MEAN CORPUSCULAR HEMOGLOBIN 30.3 pg (27.0-33.0); MEAN CORPUSCULAR HGB CONC 31.4 g/dl (32.0-36.5); MEAN CORPUSCULAR VOLUME 96.4 fl (80.0-96.0); PLATELET COUNT, AUTOMATED 132 10^3/uL (150-450); RED BLOOD COUNT 4.46 10^6/uL (4.00-5.40); WHITE BLOOD COUNT 7.5 10^3/uL (4.0-10.0)
[2022-12-09 06:06] VITALS: BP 162/78; TEMP 97.3; O2SAT 92
[2022-12-09 06:17] LABS: ALBUMIN 3.1 G/DL (3.2-5.2); ALKALINE PHOSPHATASE 71 U/L (46-116); ALT/SGPT 18 U/L (7.0-40); AST/SGOT 11 U/L (<34); BILIRUBIN,TOTAL 0.5 MG/DL (0.3-1.2); BLOOD UREA NITROGEN 21 MG/DL (9-23); CALCIUM LEVEL 8.4 MG/DL (8.3-10.6); CARBON DIOXIDE LEVEL 34 MMOL/L (20-31); CHLORIDE LEVEL 104 MMOL/L (98-107); CREATININE FOR GFR 0.92 MG/DL (0.55-1.30); GLOMERULAR FILTRATION RATE > 60.0 (>45); GLUCOSE, FASTING 86 MG/DL (74-106); POTASSIUM SERUM 3.9 MMOL/L (3.5-5.1); SODIUM LEVEL 142 MMOL/L (136-145); TOTAL PROTEIN 5.9 G/DL (5.7-8.2)
[2022-12-09] MEDS: ADVAIR HFA 230/21MCG INHALER INH SCH (07:25)
[2022-12-09] MEDS: COMBIVENT RESPIMAT 100-20MCG INHALER 4GM INH SCH ×2 (07:25→11:56)
[2022-12-09 09:39] VITALS: BP 136/78
[2022-12-09] MEDS: bisoproloL fumarate 5 MG TAB PO SCH (09:39)
[2022-12-09] MEDS: CYANOCOBALAMIN 500 MCG TAB PO SCH (09:39)
[2022-12-09] MEDS: CitaloPRAM (CeleXA) 20 MG TAB PO SCH (09:40)
[2022-12-09] MEDS: MULTIVITAMINS/MINERALS THERAP 1 TAB PO SCH (09:40)
[2022-12-09] MEDS: FERROUS GLUCONATE 324 MG TAB PO SCH (09:40)
[2022-12-09] MEDS: MEMANTINE 5MG TABLET (NAMENDA) PO SCH (09:40)
[2022-12-09] MEDS: clonazePAM 0.5 MG TAB PO SCH (09:40)
[2022-12-09] MEDS: OMEPRAZOLE 20MG CAP PO SCH (09:40)
[2022-12-09] MEDS: THIAMINE 100 MG TAB PO SCH (09:40)
[2022-12-09] MEDS: predniSONE 20 MG TAB PO SCH (09:40)
[2022-12-09] MEDS: FOLIC ACID 1MG TAB PO SCH (09:40)
[2022-12-09] MEDS: buPROPion **SR TABLET** (ZYBAN) 150MG PO SCH (09:40)
[2022-12-09] MEDS: ENOXAPARIN 40MG/0.4ML SYRINGE (J1650 PER 10MG) SC SCH (09:41)
[2022-12-09] MEDS ORDERED: PRED20TA PO ×2 (10:43→12:14)
[2022-12-09 10:45] VITALS: O2SAT 91
== END 2022-12-09 13:40 | DRG 177 ==
LOC: M ED 09:01 → EDBD 09:01 → M ED INP 11:50 → EEVIPCON 11:50 → M MSPAV 15:39
PROVIDERS: ADMIT Internal Medicine; ATTEND Family Medicine
PROC: XW033E5 Introduction of Remdesivir Anti-infective into Peripheral Vein, Percutaneous Approach, New Technology Group 5 (ICD-10-PCS; principal; 2022-12-02)
PROC: 3E0333Z Introduction of Anti-inflammatory into Peripheral Vein, Percutaneous Approach (ICD-10-PCS; 2022-12-02)
DX: U07.1 COVID-19 (principal); J96.01 Acute respiratory failure with hypoxia; J44.1 Chronic obstructive pulmonary disease with (acute) exacerbation; K70.30 Alcoholic cirrhosis of liver without ascites; B18.2 Chronic viral hepatitis C; F34.1 Dysthymic disorder; K21.9 Gastro-esophageal reflux disease without esophagitis; E78.5 Hyperlipidemia, unspecified; F03.90 Unspecified dementia, unspecified severity, without behavioral disturbance, psychotic disturbance, mood disturbance, and anxiety; J44.9 Chronic obstructive pulmonary disease, unspecified; I10 Essential (primary) hypertension; M54.50 Low back pain, unspecified; G47.00 Insomnia, unspecified; Z79.899 Other long term (current) drug therapy; Z88.0 Allergy status to penicillin; Z88.6 Allergy status to analgesic agent; Z88.1 Allergy status to other antibiotic agents

== ENCOUNTER → 2022-12-23 | Outpatient (REF) | payer MEDICARE, MEDICAID ==
[~2022-12-23] MED LIST changes: +ADV500INH INH; +PRED20TA PO; +VENTAER INH
[2022-12-24 11:48] LABS: APPEARANCE, URINE HAZY (CLEAR); BACTERIA, URINE AUTO 1+ (NEGATIVE); BILIRUBIN, URINE AUTO NEGATIVE (NEGATIVE); BLOOD, URINE BLOOD NEGATIVE (NEGATIVE); COLOR, URINE YELLOW (YELLOW); GLUCOSE, URINE (UA) AUTO NEGATIVE (NEGATIVE); KETONE, URINE AUTO NEGATIVE (NEGATIVE); LEUKOCYTE ESTERASE, URINE AUTO 3+ (NEGATIVE); MUCUS, URINE SMALL (NEGATIVE); NITRITE, URINE AUTO NEGATIVE (NEGATIVE); PROTEIN, URINE AUTO 1+ mg/dL (NEGATIVE); RBC, URINE AUTO 2 /HPF (0-3); SPECIFIC GRAVITY URINE AUTO 1.012 (1.002-1.035); SQUAMOUS EPITHELIAL CELL UR AU 1 /HPF (0-6); WBC, URINE AUTO TNTC /HPF (0-3)
== END ==
LOC: M SFHCPLAZ 10:12
PROVIDERS: ATTEND Physician Assistant
DX: N39.0 Urinary tract infection, site not specified (principal); B96.20 Unspecified Escherichia coli [E. coli] as the cause of diseases classified elsewhere

== ENCOUNTER → 2023-06-28 | Outpatient (REF) | payer MEDICARE, MEDICAID ==
[2023-06-28 10:15] LABS: HEMATOCRIT 46.6 % (36.0-47.0); HEMOGLOBIN 14.3 g/dl (12.0-15.5); MEAN CORPUSCULAR HEMOGLOBIN 30.5 pg (27.0-33.0); MEAN CORPUSCULAR HGB CONC 30.7 g/dl (32.0-36.5); MEAN CORPUSCULAR VOLUME 99.4 fl (80.0-96.0); PLATELET COUNT, AUTOMATED 170 10^3/uL (150-450); RED BLOOD COUNT 4.69 10^6/uL (4.00-5.40); WHITE BLOOD COUNT 8.3 10^3/uL (4.0-10.0)
[2023-06-28 10:28] LABS: ALBUMIN 3.6 G/DL (3.2-5.2); ALKALINE PHOSPHATASE 91 U/L (46-116); ALT/SGPT 10 U/L (7.0-40); AST/SGOT 8 U/L (<34); BILIRUBIN,TOTAL 0.5 MG/DL (0.3-1.2); BLOOD UREA NITROGEN 11 MG/DL (9-23); CALCIUM LEVEL 9.3 MG/DL (8.3-10.6); CARBON DIOXIDE LEVEL 32 MMOL/L (20-31); CHLORIDE LEVEL 103 MMOL/L (98-107); CHOLESTEROL LEVEL 153 MG/DL (<200); CHOLESTEROL RISK RATIO 2.76 (<5); GLOMERULAR FILTRATION RATE > 60.0 (>45); GLUCOSE, FASTING 134 MG/DL (74-106); HDL CHOLESTEROL 55.4 MG/DL (>40); IRON (FE) 92 UG/DL (50-170); LDL CHOLESTEROL 74.8 MG/DL (<100); NON-HDL-C 97.6 MG/DL; PERCENT SATURATION 28.7 % (13.2-45.0); POTASSIUM SERUM 4.3 MMOL/L (3.5-5.1); SODIUM LEVEL 139 MMOL/L (136-145); TOTAL IRON BINDING CAPACITY 321 UG/DL (250-425); TOTAL PROTEIN 6.9 G/DL (5.7-8.2); TRIGLYCERIDES LEVEL 114 MG/DL (<150)
[2023-06-28 10:31] LABS: FERRITIN 55.1 NG/ML (7.3-270.7)
[2023-06-28 10:33] LABS: THYROID STIMULATING HORMONE 1.637 uIU/ML (0.55-4.78)
== END ==
PROVIDERS: ATTEND Nurse Practitioner Adult Health
DX: D64.9 Anemia, unspecified (principal); Z79.899 Other long term (current) drug therapy

== ENCOUNTER → 2023-12-06 | Outpatient (REF) | payer MEDICARE, MEDICAID ==
[~2023-12-06] MED LIST changes: +DOXY-440 PO; -DOXY-444 PO; -KLON0.5T PO; +KLON0.5T8 PO
[2023-12-06 12:05] LABS: HEMATOCRIT 43.6 % (36.0-47.0); HEMOGLOBIN 13.6 g/dl (12.0-15.5); MEAN CORPUSCULAR HEMOGLOBIN 30.4 pg (27.0-33.0); MEAN CORPUSCULAR HGB CONC 31.2 g/dl (32.0-36.5); MEAN CORPUSCULAR VOLUME 97.5 fl (80.0-96.0); PLATELET COUNT, AUTOMATED 154 10^3/uL (150-450); RED BLOOD COUNT 4.47 10^6/uL (4.00-5.40); WHITE BLOOD COUNT 8.8 10^3/uL (4.0-10.0)
[2023-12-06 12:26] LABS: FERRITIN 33.3 NG/ML (7.3-270.7)
[2023-12-06 12:29] LABS: VITAMIN B12 LEVEL 1696 PG/ML (211-911)
[2023-12-06 12:30] LABS: ALBUMIN 3.3 G/DL (3.2-5.2); ALKALINE PHOSPHATASE 88 U/L (46-116); ALT/SGPT 9 U/L (7.0-40); AST/SGOT 9 U/L (<34); BILIRUBIN,TOTAL 0.4 MG/DL (0.3-1.2); BLOOD UREA NITROGEN 7 MG/DL (9-23); CALCIUM LEVEL 9.3 MG/DL (8.3-10.6); CARBON DIOXIDE LEVEL 34 MMOL/L (20-31); CHLORIDE LEVEL 104 MMOL/L (98-107); CHOLESTEROL LEVEL 133 MG/DL (<200); CHOLESTEROL RISK RATIO 2.63 (<5); CREATININE FOR GFR 0.76 MG/DL (0.55-1.30); GLOMERULAR FILTRATION RATE > 60.0 (>45); GLUCOSE, FASTING 81 MG/DL (74-106); HDL CHOLESTEROL 50.4 MG/DL (>40); NON-HDL-C 82.6 MG/DL; SODIUM LEVEL 143 MMOL/L (136-145); TOTAL PROTEIN 6.7 G/DL (5.7-8.2); TRIGLYCERIDES LEVEL 143 MG/DL (<150)
== END ==
PROVIDERS: ATTEND Nurse Practitioner Adult Health
DX: D64.9 Anemia, unspecified (principal); E78.2 Mixed hyperlipidemia; E53.8 Deficiency of other specified B group vitamins; I10 Essential (primary) hypertension

== ENCOUNTER → 2023-12-28 | Outpatient (REF) | payer MEDICARE, MEDICAID | PROVIDERS: ATTEND Nurse Practitioner Adult Health | DX: R06.02 Shortness of breath (principal) ==

== ENCOUNTER → 2023-12-29 | Outpatient (REF) | payer MEDICARE, MEDICAID | LOC: M SFHCPLAZ 15:26 | PROVIDERS: ATTEND Physician Assistant Medical | DX: J44.9 Chronic obstructive pulmonary disease, unspecified (principal) ==

== ENCOUNTER → 2023-12-29 | Outpatient (CLI) | payer MEDICARE, MEDICAID | LOC: M PLAIMG 16:08 → M PLALAB 16:08 | PROVIDERS: ATTEND Physician Assistant Medical | DX: J44.9 Chronic obstructive pulmonary disease, unspecified (principal) ==

== ENCOUNTER → 2024-01-07 | Outpatient (CLI) | payer MEDICARE, MEDICAID | LOC: M WHC 13:05 | PROVIDERS: ATTEND Nurse Practitioner Adult Health | DX: Z12.31 Encounter for screening mammogram for malignant neoplasm of breast (principal) ==

== ENCOUNTER → 2024-01-12 | Outpatient (CLI) | payer MEDICARE, MEDICAID | LOC: M RAD 12:57 | PROVIDERS: ATTEND Nurse Practitioner Adult Health | DX: Z87.891 Personal history of nicotine dependence (principal) ==

== ENCOUNTER → 2024-03-20 | Outpatient (REF) | payer MEDICARE, MEDICAID ==
[2024-03-20 19:13] LABS: HEMATOCRIT 45.2 % (36.0-47.0); HEMOGLOBIN 14.1 g/dl (12.0-15.5); MEAN CORPUSCULAR HEMOGLOBIN 30.5 pg (27.0-33.0); MEAN CORPUSCULAR HGB CONC 31.2 g/dl (32.0-36.5); MEAN CORPUSCULAR VOLUME 97.8 fl (80.0-96.0); PLATELET COUNT, AUTOMATED 171 10^3/uL (150-450); RED BLOOD COUNT 4.62 10^6/uL (4.00-5.40); WHITE BLOOD COUNT 8.2 10^3/uL (4.0-10.0)
[2024-03-20 19:48] LABS: ALBUMIN 3.7 G/DL (3.2-5.2); ALKALINE PHOSPHATASE 89 U/L (46-116); ALT/SGPT 11 U/L (7.0-40); AST/SGOT 11 U/L (<34); BILIRUBIN,TOTAL 0.3 MG/DL (0.3-1.2); BLOOD UREA NITROGEN 11 MG/DL (9-23); CALCIUM LEVEL 9.9 MG/DL (8.3-10.6); CARBON DIOXIDE LEVEL 34 MMOL/L (20-31); CHLORIDE LEVEL 101 MMOL/L (98-107); CREATININE FOR GFR 0.95 MG/DL (0.55-1.30); GLOMERULAR FILTRATION RATE > 60.0 (>45); GLUCOSE, FASTING 64 MG/DL (74-106); IRON (FE) 43 UG/DL (50-170); PERCENT SATURATION 13.8 % (13.2-45.0); POTASSIUM SERUM 4.2 MMOL/L (3.5-5.1); SODIUM LEVEL 141 MMOL/L (136-145); TOTAL IRON BINDING CAPACITY 312 UG/DL (250-425); TOTAL PROTEIN 7.3 G/DL (5.7-8.2)
[2024-03-20 19:50] LABS: VITAMIN B12 LEVEL 1520 PG/ML (211-911)
[2024-03-20 19:51] LABS: FERRITIN 57.5 NG/ML (7.3-270.7)
== END ==
LOC: M SFHCPLAZ 17:08
PROVIDERS: ATTEND Nurse Practitioner Adult Health
DX: D64.9 Anemia, unspecified (principal); J44.9 Chronic obstructive pulmonary disease, unspecified; E53.8 Deficiency of other specified B group vitamins

== ENCOUNTER → 2024-04-10 | Outpatient (CLI) | payer MEDICARE, MEDICAID ==
[~2024-04-10] MED LIST changes: -MULT200T7 PO; +MULT200T9 PO
== END ==
LOC: M PLARAD 08:57
PROVIDERS: ATTEND Nurse Practitioner Adult Health
DX: R91.8 Other nonspecific abnormal finding of lung field (principal)
CPT/HCPCS: 78815; A9552

== ENCOUNTER → 2025-04-09 | Outpatient (REF) | payer MEDICARE, MEDICAID ==
[~2025-04-09] MED LIST changes: -ADV250INH; -ADV500INH INH; +ADVA1AER10 INH; +ADVA1AER9; +BUPR150T15 PO; -BUPR1TAB53 PO; -GUAI1SYP8 PO; +GUAI237S12 PO; +MAGN400O74 PO; -MILKSUS5 PO; +NYST1POW3 TOP; -NYST1POW9 TOP
[2025-04-09 14:34] LABS: CREATININE FOR GFR 1.15 MG/DL (0.55-1.30); GLOMERULAR FILTRATION RATE 51.6 (>45)
== END ==
PROVIDERS: ATTEND Otolaryngology
DX: R93.0 Abnormal findings on diagnostic imaging of skull and head, not elsewhere classified (principal)